=== PATIENT | male | born 1945 | race Caucasian/White ===

== ENCOUNTER 2017-09-03 22:47 | Inpatient (IN) | payer OTHER, MEDICARE ==
--- NOTE | 2017-09-03 22:57 | PDOC ---
Attending Attestation - Physicial Exam PE: GENERAL: (+)Decreased mental status. Awake and alert. HEAD: No signs of trauma EYES: PERRLA, EOMI, sclera anicteric, conjunctiva clear ENT: (+)Dry blood in mouth. (+)Dry blood on left cartilage piercing. (+) Extremely dry mouth. Auricles normal inspection, hearing grossly normal, nares patent, oropharynx clear without exudates. NECK: Normal ROM, supple, no lymphadenopathy, JVD, or masses LUNGS: Breath sounds equal, clear to auscultation bilaterally. No wheezes, and no crackles HEART: Regular rate and rhythm, normal S1 and S2, no murmurs, rubs or gallops ABDOMEN: Soft, nontender, normoactive bowel sounds. No guarding, no rebound. No masses EXTREMITIES: Normal range of motion, no edema. No clubbing or cyanosis. No cords, erythema, or tenderness NEUROLOGICAL: (+)3+ hyperreflexive arm and legs. Cranial nerves II through XII grossly intact. No clonus. SKIN: Warm, Dry, normal turgor, no rashes or lesions noted. <Noah Gerber - Last Filed: 09/03/17 23:38> - Resident Resident Name: Lynette Moss - ED Attending Attestation I have performed the following: I have examined & evaluated the patient, The case was reviewed & discussed with the resident, I agree w/resident's findings & plan - HPI HPI: 09/03/17 23:09 Pt comes via EMS; found by neighbors down in his home. Pt is r/o stroke; r/o seizure. He has no last known well time. He is and lives alone. He urinated on self and he is extremely dry; tongue dry and mouth has dried blood in it. Pt was not responsive to EMS; someone said they smelled ETOH on pt. I do not smell ETOH. Pt had a rightward gaze on exam by EMS, pt was stiff as per EMS. P In the ER pt is able to look to the left however, he is incinsistently following commands. - Physicial Exam PE: 09/03/17 23:33 Agree with resident exam. - Medical Decision Making 09/03/17 23:34 CT scan came back normal. I spoke to imaging business management consultant. 09/03/17 23:55 Patient Name: SHADY COMBS THIS IS A PRELIMINARY REPORT FROM IMAGING EMBEDDED ENGINEER EXAM: CT head without contrast IMAGES: 152 DATE OF EXAM: 2017-09-03 22:51:14 REASON FOR EXAM: Rule out CVA/TIA COMPARISON: None. FINDINGS: There is cerebral atrophy. Very mild chronic microvascular ischemic changes are suggested. No acute intracranial hemorrhage or acute infarction. The visualized aspect of the paranasal sinuses and mastoid air cells are unremarkable. No acute fracture. Mild left posterior parietal scalp edema. 09/04/17 02:30 Pt's CXR is normal; no sign of pneumonia or effusion We are still awaiting UA results. Pt has been pancultured and we began IV levaquin. Pt received 2L NSS for dehydration and rhabdomyolysis. 09/04/17 05:55 Pt is A+Ox1 only to person. Pt believes Ceferino is he pres of US and that he is still to his . He cannot tell us the year and he cannot tell us where we are. Pt remains with dry mouth. His BP is elevated. Normally no treatment for elevated BP. Pt will be given a dose of Flomax. <Yesenia Fairbanks - Last Filed: 09/04/17 05:56> Attestations - Attestations Documentation prepared by Noah Gerber, acting as medical assistant prn for Yesenia Fairbanks MD. <Noah Gerber - Last Filed: 09/03/17 23:38>
--- NOTE | 2017-09-03 22:58 | PDOC ---
History of Present Illness <Yesenia Fairbanks - Last Filed: 09/04/17 02:29> - History of Present Illness Initial Comments: 09/03/17 22:56 72 year old male PMH of Prostate CA (Day 7 of radiation) depression, alcohol abuse, seizure disorder (on Lamictal) BIBEMS after being found down @ home. Patient last known normal was yesterday at noon when he spoke to his . As per patient's , patient's last seizure was in 05/2017 likely 2/2 to medication non-adherence at which time he was hospitalized at [facility] in [place]. At presentation patient is alert, intermittently follows commands and has dried blood in his mouth, and around his ears. VS unremarkable. Patient's : Song Meeks <Lynette Moss - Last Filed: 09/04/17 03:23> - General Stated Complaint: STROKE/CVA Past History <Yesenia Fairbanks - Last Filed: 09/04/17 02:29> - Past Medical History Anemia: No Asthma: No Cancer: No Cardiac Disorders: No CVA: No COPD: No CHF: No Dementia: Yes (STATES "SOME" MEMORY LOSS, SOME SHORT TERM MEMORY LOSS. PRESENTLY IN A) Diabetes: No (STUDY REGARDING MEMORY ISSUES @ [facility]) GI Disorders: Yes (GERD) Disorders: No HTN: Yes Hypercholesterolemia: No Liver Disease: No Psychiatric Problems: Yes (DEPRESSION) Seizures: Yes (SEIZURE DISORDER-ON LAMICTAL NOW-LAST SEIZURE 04/2014) Thyroid Disease: No - Surgical History Abdominal Surgery: Yes (hernia sx at age 23) Appendectomy: No Cardiac Surgery: No Cholecystectomy: No Lung Surgery: No Neurologic Surgery: No Orthopedic Surgery: No - Suicide/Smoking/Psychosocial Hx Smoking History: Former smoker Have you smoked in the past 12 months: Yes Number of Cigarettes Smoked Daily: 15 If you are a former smoker, when did you quit?: SMOKES E-CIGARETTES 'Breaking Loose' booklet given: 04/30/14 Hx Alcohol Use: No (UNK) Drug/Substance Use Hx: No Substance Use Type: None Hx Substance Use Treatment: Yes (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 as per ) <Lynette Moss - Last Filed: 09/04/17 03:23> - Past Medical History Allergies/Adverse Reactions: Allergies Allergy/AdvReac Type Severity Reaction Status Date / Time Penicillins Allergy Intermediate Rash Verified 09/03/17 23:17 Home Medications: Ambulatory Orders Acyclovir [Zovirax -] 200 mg PO BID 04/29/14 Aspirin [ASA -] 81 mg PO DAILY 04/29/14 Buspirone HCl [Buspar -] 15 mg PO BID 04/29/14 Ranitidine HCl [Zantac] 150 mg PO BID 04/29/14 Sertraline HCl [Zoloft -] 50 mg PO DAILY 04/29/14 Lamotrigine [LaMICtal -] 150 mg PO BID 11/21/15 Methylphenidate HCl [Ritalin LA] 10 mg PO BID 11/21/15 Multivitamins [Tab-A-Vit -] 1 tab PO DAILY 11/21/15 Ramipril 10 mg PO DAILY 11/21/15 Review of Systems - Review of Systems Able to Perform ROS?: No <Lynette Moss - Last Filed: 09/04/17 03:23> *Physical Exam - Vital Signs Last Vital Signs Temp Pulse Resp BP Pulse Ox 98.8 F 78 22 152/77 96 09/03/17 22:47 09/03/17 22:50 09/03/17 22:50 09/03/17 22:47 09/03/17 22:50 <Yesenia Fairbanks - Last Filed: 09/04/17 02:29> - Physical Exam General Appearance: Yes: Nourished, Appropriately Dressed HEENT: positive: MARIO. negative: TM Bulging, TM Dull, TM Erythema Neck: positive: Trachea midline, Supple Respiratory/Chest: positive: Lungs Clear Cardiovascular: positive: S1, S2. negative: Edema, JVD Vascular Pulses: Dorsalis-Pedis (R): 2+, Doralis-Pedis (L): 2+ Gastrointestinal/Abdominal: positive: Normal Bowel Sounds, Soft Neurologic: positive: Alert, Respond to painful stimul, Other (intermittently responds to commands, withdraws from pain) <Lynette Moss - Last Filed: 09/04/17 03:23> ED Treatment Course - LABORATORY CBC & Chemistry Diagram: 09/03/17 23:00 09/03/17 23:00 - ADDITIONAL ORDERS Additional order review: Laboratory Results 04/09/03/17 09/03/17 01:15 23:00 23:00 PT with INR INR PTT (Actin FS) Sodium Potassium Chloride Carbon Dioxide Anion Gap BUN Creatinine Creat Clearance w eGFR Random Glucose Lactic Acid 2.4 H* Calcium Total Bilirubin AST ALT Alkaline Phosphatase Creatine Kinase Creatine Kinase Index CK-MB (CK-2) Troponin I Total Protein Albumin Triglycerides Cholesterol Total LDL Cholesterol HDL Cholesterol Alcohol, Quantitative < 5.0 Anti-A Titer Cancelled Blood Type Cancelled Antibody Screen Cancelled 09/03/17 09/03/17 23:00 23:00 PT with INR 11.70 INR 1.04 PTT (Actin FS) 28.9 Sodium 144 Potassium 4.3 Chloride 109 H Carbon Dioxide 25 Anion Gap 10 BUN 25 H Creatinine 1.7 H Creat Clearance w eGFR 39.60 Random Glucose 103 Lactic Acid Calcium 9.2 Total Bilirubin 0.7 D AST 101 H D ALT 33 D Alkaline Phosphatase 91 Creatine Kinase 4278 H Creatine Kinase Index 0.6 CK-MB (CK-2) 28.97 H Troponin I 0.05 D Total Protein 7.2 Albumin 3.8 Triglycerides 64 Cholesterol 194 Total LDL Cholesterol 107 H HDL Cholesterol 73 Alcohol, Quantitative Anti-A Titer Blood Type Antibody Screen 09/03/17 23:00 RBC 4.66 MCV 92.1 MCHC 33.9 RDW 15.2 MPV 8.3 Neutrophils % 91.1 H D Lymphocytes % 3.7 L D Monocytes % 5.1 Eosinophils % 0.0 D Basophils % 0.1 - Medications Given in the ED: ED Medications Discontinued Medications Generic Name Dose Route Start Last Admin Trade Name Freq PRN Reason Stop Dose Admin Sodium Chloride 1,000 ml 09/03/17 23:13 09/03/17 23:44 Normal Saline - IV 09/03/17 23:14 1,000 ml ONCE ONE Administration Sodium Chloride 1,000 ml 09/04/17 01:11 09/04/17 01:14 Normal Saline - IV 09/04/17 01:12 1,000 ml ONCE ONE Administration <Yesenia Fairbanks - Last Filed: 09/04/17 02:29> - LABORATORY CBC & Chemistry Diagram: 09/03/17 23:00 09/03/17 23:00 - RADIOLOGY Radiology Studies Ordered: Category Date Time Status HEAD CT (STROKE) [CT] Stat CT Scan 09/03/17 22:49 Ordered <Lynette Moss - Last Filed: 09/04/17 03:23> Medical Decision Making - Medical Decision Making 09/03/17 23:01 72 year old male presents as medical code. Code scott + ED CVA/TIA order set. Will also obtain CPK as patient has unknown h/o of being down, ethanol level and Lamotrigine level. 09/03/17 23:[address] negative for acute bleed as well as brain mets. 09/04/17 00:02 Leukocytosis 22 -- likely reactive, will obtain Blood Cultures, CXR to investigate source of infection. UA pending. 09/04/17 00:37 Patient A&O x3, responsive. CPK 4278 --> will give additional 1 L IV NS. 09/04/17 00:58 Case d/w Dr. Sweet. Patient admitted to OB Tele. Will continue to monitor while in ED. 09/04/17 03:22 Lactic Acid 2.4 - likely 2/2 to seizure. Patient recieving IV NS. <Lynette Moss - Last Filed: 09/04/17 03:23> *DC/Admit/Observation/Transfer <Yesenia Fairbanks - Last Filed: 09/04/17 02:29> - Discharge Dispostion Admit: Yes <Lynette Moss - Last Filed: 09/04/17 03:23> Diagnosis at time of Disposition: Leukocytosis, Post-ictal state, Rhabdomyolysis, Cerebrovascular accident (CVA) , Epilepsy - Discharge Dispostion Condition at time of disposition: Fair
[2017-09-03] MEDS ORDERED: SODIUM CHLORIDE 1,000 ML IV SCH (23:00)
[2017-09-03] MEDS ORDERED: SODIUM CHLORIDE 0.9% 500 ML INFUS.BAG IV ONE (23:13)
[2017-09-03 23:17] VITALS: BMI 23.7
[2017-09-03 23:41] LABS: BASO % 0.1 % (0-2.0); HEMATOCRIT 42.9 % (35.4-49); HEMOGLOBIN 14.5 GM/dL (11.7-16.9); LYMPH % 3.7 % (8-40); MCH 31.2 pg (25.7-33.7); MCHC 33.9 g/dl (32.0-35.9); MEAN CELL VOLUME 92.1 fl (80-96); MEAN PLT VOLUME 8.3 fl (7.5-11.1); MONO % 5.1 % (3.8-10.2); NEUT % 91.1 % (42.8-82.8); PLATELET COUNT 269 K/MM3 (134-434); RBC 4.66 M/mm3 (4.00-5.60); RDW 15.2 % (11.9-15.9)
[2017-09-04 00:06] LABS: ALBUMIN 3.8 g/dl (3.4-5.0); ANION GAP 10 (8-16); BILIRUBIN,TOTAL 0.7 mg/dL (0.2-1.0); BLOOD UREA NITROGEN 25 mg/dL (7-18); CALCIUM 9.2 mg/dL (8.5-10.1); CHLORIDE 109 mmol/L (98-107); CHOLESTEROL 194 mg/dL (50-200); CO2 25 mmol/L (21-32); CREATININE 1.7 mg/dL (0.7-1.3); GLUCOSE,RANDOM 103 mg/dL (74-106); POTASSIUM 4.3 mmol/L (3.5-5.1); SGOT/AST 101 U/L (15-37); SGPT/ALT 33 U/L (12-78); SODIUM 144 mmol/L (136-145); TOT PROT 7.2 g/dl (6.4-8.2); TRIGLYCERIDES 64 mg/dL (35-160)
[2017-09-04 00:18] LABS: ALK PHOS 91 U/L (45-117)
[2017-09-04 00:23] LABS: INR 1.04 (0.82-1.09); PROTHROMBIN TIME (PATIENT) 11.7 SEC (9.98-11.88)
[2017-09-04 00:26] LABS: ACTIVATED PTT 28.9 SECONDS (26.9-34.4)
[2017-09-04 00:31] LABS: PLATELET ESTIMATE ADEQUATE
[2017-09-04 00:48] LABS: HDL CHOLESTEROL 73 mg/dl (29-89)
[2017-09-04] MEDS ORDERED: SODIUM CHLORIDE 0.9% 500 ML INFUS.BAG IV ONE (01:11)
[2017-09-04] MEDS ORDERED: VANCOMYCIN 1 GRAM (PRE-DOCKED) 1,000 MG/250 ML BAG IVPB ONE (01:15)
[2017-09-04] MEDS ORDERED: levETIRAcetam 500 MG/5 ML INJECTION VIAL IVPB STA ×2 (02:51)
--- NOTE | 2017-09-04 03:36 | HP ---
CHIEF COMPLAINT: bibems PCP: Dr. Nahum Tyler, Jess [phone] Neuro: DR. Russo [phone] HISTORY OF PRESENT ILLNESS: PATIENT IS CALM BUT NOT COOPERATIVE TO HISTORY TAKING. HISTORY OBTAINED FROM ED PHYSICIANS AND CHART. 72 yr old man with hx of seizure(gran mal) HTN, CAD, ADD with hyperactivity and depression was bibems by neighbhors. His called him this morning but he did not pharmacy picking tech and she tried again in the evening, when he did not answer she called the neighbhors who found him down and immobile in his home. Last known normal was yesterday evening. As per ED note he has prostate ca (day 7 of radiation). His does not live with him but [place] reach the hospital. upon arrival to ED, as per ED resident pt was incontinent of urine on his clothes. ER course was notable for: - head CT - elevated lactic acid PAST MEDICAL HISTORY: hx of seizure(gran mal, (dr. cooley note 04/29/2014:Initially presented in 2010 - thought to be due to Bupropion-discontinued)) HTN, CAD, ADD with hyperactivity , herpes and depression PAST SURGICAL HISTORY: none Social History: Smoking: former Alcohol: no Drugs: no Family History: [place] Allergies Penicillins Allergy (Intermediate, Verified 09/03/17 23:17) Rash HOME MEDICATIONS: called [facility]: Ritalin 40mg ER qdaily - has been on this dose for last year, rx by Dr. Russo buspirone 15mg BID sertraline 50mg 1.5 tablets daily rx by dr. jones: zovirax 200mg 2caps daily(has been taking this daily for year) ramipril 10mg q daily REVIEW OF SYSTEMS unable to complete due patient's AMS PHYSICAL EXAMINATION Vital Signs - 24 hr 09/03/17 09/03/17 22:47 22:50 Temperature 98.8 F Pulse Rate 78 78 Respiratory 22 22 Rate Blood Pressure 152/77 O2 Sat by Pulse 96 96 Oximetry (%) GENERAL: Awake, alert, NAD, at times tried to climb out bed, but not combative. HEAD: Normal with no signs of trauma. EYES: Pupils small, minimally responsive to light, equal, extraocular movements intact, sclera anicteric, conjunctiva clear. No lid lag. EARS, NOSE, THROAT: Ears normal (b/l cerumen) left ear with earring with dried blood, nares patent, oropharynx erythematous with thick dark colored mucus, very mucous membranes. tongue appears swollen. no erum lacerations/bleeding visualized, no loose teeth noted, lips also with dried dark colored mucus adherent. NECK:in c-collar, without lymphadenopathy, JVD LUNGS: Breath sounds equal, clear to auscultation bilaterally. No wheezes, and no crackles. No accessory muscle use. HEART: Regular rate and rhythm, normal S1 and S2 with faint systolic ej murmur in 2nd intercostal space, ABDOMEN: Soft, nontender, not distended, normoactive bowel sounds, no guarding, no rebound, no masses. No hepatomegaly or splenomegaly. MUSCULOSKELETAL: Normal range of motion at all joints on passive motion. No bony deformities or tenderness, no ecchymosis noted. UPPER EXTREMITIES: 2+ radial pulses, warm, well-perfused. No cyanosis. No clubbing. No peripheral edema. LOWER EXTREMITIES: 2+ dp pulses, warm, well-perfused. No calf tenderness. No peripheral edema. NEUROLOGICAL: Normal speech. facial symmetry, uvula midline, tongue sticking out midline, freely moves upper and lower extremities. intermittently will answer to his name and one question or a command. was oriented to his full name. lifted legs from hip one at a time when prompted with repeated tactile stimulation. opens mouth to verbal command, closes eyes to verbal command. PSYCHIATRIC: Cooperative. Good eye contact and repeated verbal and tactile stimuli to track. Laboratory Results - last 24 hr 09/03/17 09/03/17 09/03/17 23:00 23:00 23:00 WBC 22.0 H D RBC 4.66 Hgb 14.5 Hct 42.9 MCV 92.1 MCH 31.2 MCHC 33.9 RDW 15.2 Plt Count 269 MPV 8.3 Neutrophils % 91.1 H D Lymphocytes % 3.7 L D Monocytes % 5.1 Eosinophils % 0.0 D Basophils % 0.1 Platelet Estimate Adequate Platelet Comment No clotting detected PT with INR 11.70 INR 1.04 PTT (Actin FS) 28.9 Sodium 144 Potassium 4.3 Chloride 109 H Carbon Dioxide 25 Anion Gap 10 BUN 25 H Creatinine 1.7 H Creat Clearance w eGFR 39.60 Random Glucose 103 Lactic Acid Calcium 9.2 Total Bilirubin 0.7 D AST 101 H D ALT 33 D Alkaline Phosphatase 91 Creatine Kinase 4278 H Creatine Kinase Index 0.6 CK-MB (CK-2) 28.97 H Troponin I 0.05 D Total Protein 7.2 Albumin 3.8 Triglycerides 64 Cholesterol 194 Total LDL Cholesterol 107 H HDL Cholesterol 73 Alcohol, Quantitative Anti-A Titer Blood Type Antibody Screen 09/03/17 09/03/17 09/04/17 23:00 23:00 01:15 WBC RBC Hgb Hct MCV MCH MCHC RDW Plt Count MPV Neutrophils % Lymphocytes % Monocytes % Eosinophils % Basophils % Platelet Estimate Platelet Comment PT with INR INR PTT (Actin FS) Sodium Potassium Chloride Carbon Dioxide Anion Gap BUN Creatinine Creat Clearance w eGFR Random Glucose Lactic Acid 2.4 H* Calcium Total Bilirubin AST ALT Alkaline Phosphatase Creatine Kinase Creatine Kinase Index CK-MB (CK-2) Troponin I Total Protein Albumin Triglycerides Cholesterol Total LDL Cholesterol HDL Cholesterol Alcohol, Quantitative < 5.0 Anti-A Titer Cancelled Blood Type Cancelled Antibody Screen Cancelled ASSESSMENT/PLAN: 72yo man with hx of seizures disorder bibems after being found in his home placed in observation in [facility]. #AMS likely due to post-ictal stage of seizure, low suspicion for CVA as no focal neurological deficits though unable to complete full neuro exam, head CT is negative, will approach as seizure -loading dose of keppra - 750mg IVPB (adjusted for renal function) -neurochecks q4hrs -elevate head of bed 30 degrees -neurology evaluation Dr. carlson consulted -urine toxicology to r/o illicit substances -CXR to check for evidence of aspiration due to patient's foul smelling mucus that he keeps coughing up -continous bedrest with seizure and fall precautions in place, 1:1 monitoring for now - NPO as doubtful if patient can protect airway at current mentation, hold po meds #OBDULIA - may be prerenal or ATN secondary to rhabdomyolysis from gran mal seizure or being immobile for prolonged time -ua/, urine studies, renal U/S -avoid nephrotoxic meds -check urine myoglobulin for signs of rhabdo (ck is elevated) -IV fluid hydration NS @125cc/hr #Leukocytosis- likely reactive to seizure d/o, no infection suspected at the current moment, patient afebrile, no rashes, no GI//pulm source at this time -trend CBC - monitor off abx #lactic acidosis - trend, IVF, likely reactive to seizure #DVT ppx- heparin sc #GI proph - given dose of protonix as foul smelling mucus in mouth most likely regurgitated blood swallowed from tongue bitting, tongue is swollen and with dry mucus membranes with adherent dark colored discharge difficult to assess any lacerations, no erum bleeded noted. Visit type - Emergency Visit Emergency Visit: Yes ED Registration Date: 09/04/17 Care time: The patient presented to the Emergency Department on the above date and was hospitalized for further evaluation of their emergent condition. - New Patient This patient is new to me today: Yes Date on this admission: 09/04/17 - Critical Care Critical Care patient: No Hospitalist Screening - Colonoscopy Questionnaire Colonoscopy Questionnaire: Colonoscopy Questionnaire - Patient: 50 - 75 years old and never had a screening colonoscopy: Unknown History of colon or rectal polyps, or CA: Unknown History of IBD, Crohn's disease or UC: Unknown History of abdominal radiation therapy as a child: Unknown - Relative: 1 with colon or rectal CA, or polyps at age 60 or younger: Unknown Colon or rectal CA diagnosed at age 45 or younger: Unknown Multiple relatives with colon or rectal CA: Unknown - Outcome: Screening Result: Negative Screen
[2017-09-04] MEDS ORDERED: levETIRAcetam 500 MG/5 ML INJECTION VIAL IVPB ONE (04:26)
--- NOTE | 2017-09-04 04:31 | PN ---
Teaching Attending Note Name of Resident: Miguel Funk ATTENDING PHYSICIAN STATEMENT I saw and evaluated the patient. Chart, data reviewed. I reviewed the resident's note and discussed the case with the resident. I agree with the resident's findings and plan as documented. SUBJECTIVE: 72 year old male PMH of Prostate CA (undergoing radiation therapy) depression, alcohol abuse, seizure disorder (on Lamictal) BIBEMS after being found down at home laying in urine for unknown period of time by neighbors. EMS was summoned and he was brought in to hospital. Patient found to have swollen tongue and dried blood on lips. As per patient's , patient's last seizure was in 2017 likely 2/2 to medication non-adherence at which time he was hospitalized at [facility] in [place]. Head CT performed to r/o cva and was neg for acute insults. OBJECTIVE: Last Vital Signs Temp Pulse Resp BP Pulse Ox 98.8 F 78 22 152/77 96 09/03/17 22:47 09/03/17 22:50 09/03/17 22:50 09/03/17 22:47 09/03/17 22:50 general- drowsy, nontoxic appearing, no overt evidence of trauma to body heent- dried blood on lips, swollen tongue, perrla, no scleral pallor neck -in c collar cv-s1+s2+ rrr chest- cta b/l abdomen -soft, nt, no masses appreciated ext- no pedal edema skin- no rashes appeciated Neuro- unable to perform accurate neuro exam as patient is noncompliant for exam Abnormal Lab Results 09/03/17 09/03/17 09/04/17 23:00 23:00 01:15 WBC 22.0 H D Neutrophils % 91.1 H D Lymphocytes % 3.7 L D Chloride 109 H BUN 25 H Creatinine 1.7 H Lactic Acid 2.4 H* AST 101 H D Creatine Kinase 4278 H CK-MB (CK-2) 28.97 H Total LDL Cholesterol [address] - no intracranial bleed or infarct, cerebral atrophy found ASSESSMENT AND PLAN: #72yo man with seziure d/o believed to be noncompliant with meds with #Breakthrough seizure- likely 2/2 to medication noncompliance, currently in postictal state, less likely CVA, unable to accurately perform neuro exam as pt is noncompliant -obs/tele -loading dose of keppra - 1g IVPB -neurochecks q4hrs -elevate head of bed 30 degrees -neurology evaluation -urine toxicology -CXR to check for evidence of aspiration -bed rest -fall precautions -one to one if patient tries to leave bed #OBDULIA - may be prerenal or ATN secondary to rhabdomyolysis -urine lyes, cr -UA -renal U/S -I/O, daily weights -avoid nephrotoxic meds #Rhabdomyolysis -likely 2/2 to prolonged time laying on ground -check urine myoglobulin -IV fluid hydration #Leukocytosis- likely reactive 2/2 to seizure d/o, no infection suspected at the current moment -trend CBC -no antbiotics at this time #DVT ppx- heparin sc
[2017-09-04] MEDS: SODIUM CHLORIDE 1,000 ML IV SCH ×2 (04:37→21:23)
[2017-09-04] MEDS ORDERED: PANTOPRAZOLE SODIUM 40 MG VIAL IVPUSH ONE (05:05)
[2017-09-04] MEDS ORDERED: PANTOPRAZOLE SODIUM 40 MG/100 ML BAG IVPB ONE (05:38)
[2017-09-04] MEDS ORDERED: TAMSULOSIN HCL 0.4 MG CAP.ER.24H (FP) PO ONE (05:48)
[2017-09-04] MEDS ORDERED: TAMSULOSIN HCL 0.4 MG CAP.ER.24H (FP) ONE (05:58)
[2017-09-04 06:01] LABS: URINE APPEARANCE CLEAR; URINE BILIRUBIN NEGATIVE (<2.0 mg/dL); URINE COLOR LTYELLOW; URINE GLUCOSE (UA) NEGATIVE (NEGATIVE); URINE KETONE TRACE (NEGATIVE); URINE LEUK ESTERASE NEGATIVE (NEGATIVE); URINE NITRITE NEGATIVE (NEGATIVE); URINE PROTEIN NEGATIVE (NEGATIVE); URINE UROBILINOGEN NEGATIVE mg/dL (0.2-1.0)
[2017-09-04 06:01] LABS: BASO % 0.4 % (0-2.0); HEMATOCRIT 39.5 % (35.4-49); HEMOGLOBIN 13.3 GM/dL (11.7-16.9); LYMPH % 4.8 % (8-40); MCH 31.3 pg (25.7-33.7); MCHC 33.7 g/dl (32.0-35.9); MEAN CELL VOLUME 92.9 fl (80-96); MONO % 5.4 % (3.8-10.2); NEUT % 89.4 % (42.8-82.8); PLATELET COUNT 252 K/MM3 (134-434); RBC 4.25 M/mm3 (4.00-5.60); RDW 14.7 % (11.9-15.9); WHITE BLOOD COUNT 16.5 K/mm3 (4.0-10.0)
[2017-09-04 06:11] LABS: URINE BACTERIA RARE /hpf (NONE SEEN); URINE MUCUS RARE
[2017-09-04 06:21] LABS: ANION GAP 9 (8-16); BLOOD UREA NITROGEN 23 mg/dL (7-18); CHLORIDE 116 mmol/L (98-107); CO2 22 mmol/L (21-32); CREATININE 1.5 mg/dL (0.7-1.3); GLUCOSE,RANDOM 94 mg/dL (74-106); MAGNESIUM 2.2 mg/dL (1.8-2.4); PHOSPHOROUS 2.1 mg/dL (2.5-4.9); POTASSIUM 3.8 mmol/L (3.5-5.1); SODIUM 147 mmol/L (136-145)
[2017-09-04] MEDS: HEPARIN NA (PORCINE) 5,000 UNITS/ML 1ML VIAL SQ SCH ×3 (06:31→21:24)
--- NOTE | 2017-09-04 08:36 | EKG ---
Test Reason : Blood Pressure : / mmHG Vent. Rate : 085 BPM Atrial Rate : 085 BPM P-R Int : 160 ms QRS Dur : 098 ms QT Int : 368 ms P-R-T Axes : 066 056 072 degrees QTc Int : 437 ms SINUS RHYTHM WITH PREMATURE ATRIAL COMPLEXES OTHERWISE NORMAL ECG WHEN COMPARED WITH ECG OF 29-APR-2014 13:37, PREMATURE ATRIAL COMPLEXES ARE NOW PRESENT QUESTIONABLE CHANGE IN QRS AXIS Confirmed by JUANA PAULINO, LAWSON ([id number]) on 09/04/2017 8:36:26 AM Referred By: Confirmed By:LAWSON ARIAS MD
--- NOTE | 2017-09-04 09:36 | CON.NEURO ---
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 Last known normal was yesterday evening. upon arrival to ED, as per ED resident pt was incontinent of urine on his clothes. Hx on being on lamitcal--does not know dose and HX of noncompliance ; recent admission to [facility] for breakthrough Sz as well. limited HX , states lives with --though she does not live him; does not recall year or president--confused. 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: Yes: Alzheimer's, Seizure (Initially presented in 2010- thought to be due to Bupropion-discontinued) Cardio/Vascular: Yes: CAD Psych: Yes: Anxiety, Depression Musculoskeletal: Yes: Osteoarthritis - Past Surgical History Past Surgical History: Yes: None - Alcohol/Substance Use Hx Alcohol Use: No (UNK) - Smoking History Smoking history: Former smoker Have you smoked in the past 12 months: Yes Aproximately how many cigarettes per day: 15 If you are a former smoker, when did you quit?: SMOKES E-CIGARETTES - Social History ADL: Independent Occupation: retired History of Recent Travel: No Home Medications - Allergies Allergies/Adverse Reactions: Allergies Allergy/AdvReac Type Severity Reaction Status Date / Time Penicillins Allergy Intermediate Rash Verified 09/03/17 23:17 - Home Medications Home Medications: Ambulatory Orders Acyclovir [Zovirax -] 200 mg PO BID 04/29/14 Aspirin [ASA -] 81 mg PO DAILY 04/29/14 Buspirone HCl [Buspar -] 15 mg PO BID 04/29/14 Ranitidine HCl [Zantac] 150 mg PO BID 04/29/14 Sertraline HCl [Zoloft -] 75 mg PO DAILY 04/29/14 Lamotrigine [LaMICtal -] 150 mg PO BID 11/21/15 Multivitamins [Tab-A-Vit -] 1 tab PO DAILY 11/21/15 Ramipril 10 mg PO DAILY 11/21/15 Methylphenidate HCl [Ritalin LA] 40 mg PO DAILY 09/04/17 Physical Exam-Neuro Vital Signs: Vital Signs Temperature 98.0 F 09/04/17 08:00 Pulse Rate 84 09/04/17 08:00 Respiratory Rate 16 09/04/17 08:00 Blood Pressure 140/73 09/04/17 08:00 O2 Sat by Pulse Oximetry (%) 98 09/04/17 06:49 Labs: CBC, BMP 09/04/17 05:54 09/04/17 05:54 INR, PTT INR 1.04 (0.82-1.09) 09/03/17 23:00 - Neuro Exam Level Of Consciousness: Yes: Alert (awake, but confused, not oriented to place, yr, follows simple commands, no focal weakness, no sesnory level ) Imaging - Results Cat Scan: Image Reviewed Problem List - Problems (1) Epilepsy Code(s): G40.909 - EPILEPSY, UNSP, NOT INTRACTABLE, WITHOUT STATUS EPILEPTICUS (2) Leukocytosis Code(s): D72.829 - ELEVATED WHITE BLOOD CELL COUNT, UNSPECIFIED (3) Post-ictal state Code(s): R56.9 - UNSPECIFIED CONVULSIONS Assessment/Plan 72 yr old man with hx 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 Last known normal was yesterday evening. upon arrival to ED, as per ED resident pt was incontinent of urine on his clothes. Hx on being on lamitcal--does not know dose and HX of noncompliance ; recent admission to [facility] for breakthrough Sz as well. limited HX , states lives with --though she does not live him; does not recall year or president--confused. HD CT prelim (-) ? positical vs dementia vs other check MRI BRAIN empirically start KEPPRA 500BID will get more HX from Dr Godinez
--- NOTE | 2017-09-04 10:47 | PN ---
Progress Note (short form) - Note Progress Note: Subjective: no fever ro chills, no weakness, does not remembers what happened and he does not remember having any aura before a seizure. he denies any cough or dysuria Objective: Vital Signs: Last Vital Signs Temp Pulse Resp BP Pulse Ox 98.0 F 84 16 140/73 98 09/04/17 08:00 09/04/17 08:00 09/04/17 08:00 09/04/17 08:00 09/04/17 06:49 Laboratory Results - last 24 hr 09/03/17 09/03/17 09/03/17 23:00 23:00 23:00 WBC 22.0 H D RBC 4.66 Hgb 14.5 Hct 42.9 MCV 92.1 MCH 31.2 MCHC 33.9 RDW 15.2 Plt Count 269 MPV 8.3 Neutrophils % 91.1 H D Lymphocytes % 3.7 L D Monocytes % 5.1 Eosinophils % 0.0 D Basophils % 0.1 Platelet Estimate Adequate Platelet Comment No clotting detected PT with INR 11.70 INR 1.04 PTT (Actin FS) 28.9 Sodium 144 Potassium 4.3 Chloride 109 H Carbon Dioxide 25 Anion Gap 10 BUN 25 H Creatinine 1.7 H Creat Clearance w eGFR 39.60 Random Glucose 103 Serum Osmolality Lactic Acid Calcium 9.2 Phosphorus Magnesium Total Bilirubin 0.7 D AST 101 H D ALT 33 D Alkaline Phosphatase 91 Creatine Kinase 4278 H Creatine Kinase Index 0.6 CK-MB (CK-2) 28.97 H Troponin I 0.05 D Total Protein 7.2 Albumin 3.8 Triglycerides 64 Cholesterol 194 Total LDL Cholesterol 107 H HDL Cholesterol 73 TSH Urine Color Urine Appearance Urine pH Ur Specific [place] Urine Protein Urine Glucose (UA) Urine Ketones Urine Blood Urine Nitrite Urine Bilirubin Urine Urobilinogen Ur Leukocyte Esterase Urine WBC (Auto) Urine RBC (Auto) Urine Bacteria Urine Mucus Urine Osmolality Alcohol, Quantitative Anti-A Titer Blood Type Antibody Screen 09/03/17 09/03/17 09/04/17 23:00 23:00 01:15 WBC RBC Hgb Hct MCV MCH MCHC RDW Plt Count MPV Neutrophils % Lymphocytes % Monocytes % Eosinophils % Basophils % Platelet Estimate Platelet Comment PT with INR INR PTT (Actin FS) Sodium Potassium Chloride Carbon Dioxide Anion Gap BUN Creatinine Creat Clearance w eGFR Random Glucose Serum Osmolality Lactic Acid 2.4 H* Calcium Phosphorus Magnesium Total Bilirubin AST ALT Alkaline Phosphatase Creatine Kinase Creatine Kinase Index CK-MB (CK-2) Troponin I Total Protein Albumin Triglycerides Cholesterol Total LDL Cholesterol HDL Cholesterol TSH Urine Color Urine Appearance Urine pH Ur Specific [place] Urine Protein Urine Glucose (UA) Urine Ketones Urine Blood Urine Nitrite Urine Bilirubin Urine Urobilinogen Ur Leukocyte Esterase Urine WBC (Auto) Urine RBC (Auto) Urine Bacteria Urine Mucus Urine Osmolality Alcohol, Quantitative < 5.0 Anti-A Titer Cancelled Blood Type Cancelled Antibody Screen Cancelled 09/04/17 09/04/17 09/04/17 04:40 05:00 05:27 WBC RBC Hgb Hct MCV MCH MCHC RDW Plt Count MPV Neutrophils % Lymphocytes % Monocytes % Eosinophils % Basophils % Platelet Estimate Platelet Comment PT with INR INR PTT (Actin FS) Sodium Potassium Chloride Carbon Dioxide Anion Gap BUN Creatinine Creat Clearance w eGFR Random Glucose Serum Osmolality Lactic Acid 1.2 Calcium Phosphorus Magnesium Total Bilirubin AST ALT Alkaline Phosphatase Creatine Kinase Creatine Kinase Index CK-MB (CK-2) Troponin I Total Protein Albumin Triglycerides Cholesterol Total LDL Cholesterol HDL Cholesterol TSH Urine Color Ltyellow Urine Appearance Clear Urine pH 5.0 Ur Specific [place] 1.010 Urine Protein Negative Urine Glucose (UA) Negative Urine Ketones Trace H Urine Blood 3+ H Urine Nitrite Negative Urine Bilirubin Negative Urine Urobilinogen Negative Ur Leukocyte Esterase Negative Urine WBC (Auto) 1 Urine RBC (Auto) 3 Urine Bacteria Rare Urine Mucus Rare Urine Osmolality 449 Alcohol, Quantitative Anti-A Titer Blood Type Antibody Screen 09/04/17 09/04/17 09/04/17 05:27 05:27 05:54 WBC 16.5 H RBC 4.25 Hgb 13.3 Hct 39.5 MCV 92.9 MCH 31.3 MCHC 33.7 RDW 14.7 Plt Count 252 MPV 8.0 Neutrophils % 89.4 H Lymphocytes % 4.8 L D Monocytes % 5.4 Eosinophils % 0.0 Basophils % 0.4 D Platelet Estimate Platelet Comment PT with INR INR PTT (Actin FS) Sodium Potassium Chloride Carbon Dioxide Anion Gap BUN Creatinine Creat Clearance w eGFR Random Glucose Serum Osmolality 303 Lactic Acid Calcium Phosphorus Magnesium Total Bilirubin AST ALT Alkaline Phosphatase Creatine Kinase Creatine Kinase Index CK-MB (CK-2) Troponin I Total Protein Albumin Triglycerides Cholesterol Total LDL Cholesterol HDL Cholesterol TSH Urine Color Urine Appearance Urine pH Ur Specific [place] Urine Protein Urine Glucose (UA) Urine Ketones Urine Blood Urine Nitrite Urine Bilirubin Urine Urobilinogen Ur Leukocyte Esterase Urine WBC (Auto) Urine RBC (Auto) Urine Bacteria Urine Mucus Urine Osmolality Cancelled Alcohol, Quantitative Anti-A Titer Blood Type Antibody Screen 09/04/17 09/04/17 05:54 05:54 WBC RBC Hgb Hct MCV MCH MCHC RDW Plt Count MPV Neutrophils % Lymphocytes % Monocytes % Eosinophils % Basophils % Platelet Estimate Platelet Comment PT with INR INR PTT (Actin FS) Sodium 147 H Potassium 3.8 Chloride 116 H Carbon Dioxide 22 Anion Gap 9 BUN 23 H Creatinine 1.5 H Creat Clearance w eGFR Random Glucose 94 Serum Osmolality Lactic Acid Calcium 8.0 L Phosphorus 2.1 L D Magnesium 2.2 Total Bilirubin AST ALT Alkaline Phosphatase Creatine Kinase Creatine Kinase Index CK-MB (CK-2) Troponin I Total Protein Albumin Triglycerides Cholesterol Total LDL Cholesterol HDL Cholesterol TSH 0.66 Urine Color Urine Appearance Urine pH Ur Specific [place] Urine Protein Urine Glucose (UA) Urine Ketones Urine Blood Urine Nitrite Urine Bilirubin Urine Urobilinogen Ur Leukocyte Esterase Urine WBC (Auto) Urine RBC (Auto) Urine Bacteria Urine Mucus Urine Osmolality Alcohol, Quantitative Anti-A Titer Blood Type Antibody Screen Physical Exam: NAD , Awake , cooperative , slow to respond. HEENT: dry MM, bruise on L sided tongue . no JVD CV: RRR, no MRG ' Lungs : CATB ext: no edema or erythema Abd:s fot, NT, ND , NL BS Neuro : EOMI, no facial droop, tongue at mid line , strength 5/5 in upper and lower ext proximally and distally. sensatio to light touch nl. reflexes 2+ knee jerk and biceps b/l Imaging: cxray and head CT reviewed. Assessment/Plan: 72 y/o man with h/o seizures , non compliance , ADHD, cAD , HTN who presented after being found down 1- possible seizure and posictal state : CT with o etiology, likely due to non compliance - MRI pendig - cont Keppra . - confirmed with his pharmacy lamictal 200 mg BID - seizure precautions - appreciate neuro help 2- OBDULIA: likely due to Rhabdo with possible volume depletion . Cr improved with IVF - resume IVF - monitor cr . - hold ramipril - if no improvement , will get US 3- Rhabdomyolysis : - cont IVF 4- Leukocytosis : no signs of infection . Nl cxray, clean UA , nl abd exam, no diarrhea . no neuro sx monitor 5- h/o CAD, HTN : cont ASA . hold ramipril due to OBDULIA meds were confirmed with his pharmacy and reconciled Visit type - Emergency Visit Emergency Visit: Yes ED Registration Date: 09/04/17 Care time: The patient presented to the Emergency Department on the above date and was hospitalized for further evaluation of their emergent condition. - New Patient This patient is new to me today: Yes Date on this admission: 09/04/17 - Critical Care Critical Care patient: No
[2017-09-04] MEDS: levETIRAcetam 500 MG TABLET (FP) PO SCH ×2 (11:02→21:24)
[2017-09-04] MEDS: amLODIPine BESYLATE 5 MG TABLET (FP) PO SCH (12:02)
[2017-09-05] MEDS ORDERED: ACETAMINOPHEN 325 MG TABLET (FP) PO ONE (01:23)
[2017-09-05] MEDS: SODIUM CHLORIDE 1,000 ML IV SCH (05:30)
[2017-09-05] MEDS: HEPARIN NA (PORCINE) 5,000 UNITS/ML 1ML VIAL SQ SCH ×3 (06:56→22:19)
[2017-09-05 07:41] LABS: BASO % 0.4 % (0-2.0); EOS % 0.4 % (0-4.5); HEMATOCRIT 35.1 % (35.4-49); LYMPH % 9.9 % (8-40); MCH 31.9 pg (25.7-33.7); MCHC 34.3 g/dl (32.0-35.9); MEAN PLT VOLUME 8.6 fl (7.5-11.1); MONO % 5.3 % (3.8-10.2); PLATELET COUNT 200 K/MM3 (134-434); RBC 3.78 M/mm3 (4.00-5.60); RDW 14.7 % (11.9-15.9); WHITE BLOOD COUNT 9.7 K/mm3 (4.0-10.0)
[2017-09-05 08:01] LABS: CHLORIDE 112 mmol/L (98-107); POTASSIUM 3.6 mmol/L (3.5-5.1); SODIUM 143 mmol/L (136-145)
[2017-09-05 08:06] LABS: ANION GAP 7 (8-16); BLOOD UREA NITROGEN 18 mg/dL (7-18); CALCIUM 8.2 mg/dL (8.5-10.1); CO2 24 mmol/L (21-32); CREATININE 1.1 mg/dL (0.7-1.3); GLUCOSE,RANDOM 101 mg/dL (74-106); MAGNESIUM 1.9 mg/dL (1.8-2.4); PHOSPHOROUS 2.1 mg/dL (2.5-4.9)
--- NOTE | 2017-09-05 09:12 | PN ---
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 His called him this morning but he did not pickle pumper and she tried again in the evening, when he did not answer she called the neighbhors who found him down and immobile in his home. Last known normal was yesterday evening. upon arrival to ED, as per ED resident pt was incontinent of urine on his clothes. Hx on being on lamitcal--does not know dose and HX of noncompliance ; recent admission to [facility] for breakthrough Sz as well. limited HX , states lives with --though she does not live him; does not recall year or president--confused. 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: Alzheimer's, Seizure (Initially presented in 2010- thought to be due to Bupropion-discontinued) Cardio/Vascular: Yes: CAD Psych: Yes: Anxiety, Depression Musculoskeletal: Yes: Osteoarthritis - Past Surgical History Past Surgical History: Yes: None - Alcohol/Substance Use Hx Alcohol Use: No (UNK) - Smoking History Smoking history: Former smoker Have you smoked in the past 12 months: Yes Aproximately how many cigarettes per day: 15 If you are a former smoker, when did you quit?: SMOKES E-CIGARETTES - Social History ADL: Independent Occupation: retired History of Recent Travel: No Home Medications - Allergies Allergies/Adverse Reactions: Allergies Allergy/AdvReac Type Severity Reaction Status Date / Time Penicillins Allergy Intermediate Rash Verified 09/03/17 23:17 - Home Medications Home Medications: Ambulatory Orders Acyclovir [Zovirax -] 200 mg PO BID 04/29/14 Aspirin [ASA -] 81 mg PO DAILY 04/29/14 Buspirone HCl [Buspar -] 15 mg PO BID 04/29/14 Ranitidine HCl [Zantac] 150 mg PO BID 04/29/14 Sertraline HCl [Zoloft -] 75 mg PO DAILY 04/29/14 Lamotrigine [LaMICtal -] 150 mg PO BID 11/21/15 Multivitamins [Tab-A-Vit -] 1 tab PO DAILY 11/21/15 Ramipril 10 mg PO DAILY 11/21/15 Methylphenidate HCl [Ritalin LA] 40 mg PO DAILY 09/04/17 Physical Exam-Neuro Vital Signs: Vital Signs Temperature 98.6 F 09/05/17 06:52 Pulse Rate 92 H 09/05/17 06:52 Respiratory Rate 16 09/05/17 06:52 Blood Pressure 147/88 09/05/17 06:52 O2 Sat by Pulse Oximetry (%) 94 L 09/04/17 21:00 Labs: CBC, BMP 09/04/17 05:54 09/04/17 05:54 INR, PTT INR 1.04 (0.82-1.09) 09/03/17 23:00 - Neuro Exam Level Of Consciousness: Yes: Alert (awake, but confused, not oriented to place, yr, follows simple commands, no focal weakness, no sesnory level ) Imaging - Results Cat Scan: Image Reviewed Problem List - Problems (1) Epilepsy Code(s): G40.909 - EPILEPSY, UNSP, NOT INTRACTABLE, WITHOUT STATUS EPILEPTICUS (2) Leukocytosis Code(s): D72.829 - ELEVATED WHITE BLOOD CELL COUNT, UNSPECIFIED (3) Post-ictal state Code(s): R56.9 - UNSPECIFIED CONVULSIONS Assessment/Plan 72 yr old man with hx 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 His called him this morning but he did not pickle pumper and she tried again in the evening, when he did not answer she called the neighbhors who found him down and immobile in his home. Last known normal was yesterday evening. upon arrival to ED, as per ED resident pt was incontinent of urine on his clothes. Hx on being on lamitcal--does not know dose and HX of noncompliance ; recent admission to [facility] for breakthrough Sz as well. limited HX , states lives with --though she does not live him; does not recall year or president--confused. HD CT prelim (-) ? positical vs FTD (fronto temporal dementia- primary progressive aphasia ??) vs other MRI BRAIN (-) stroke kindly get number of outpt neuro and get prior details resume lamictal dose 200BID ? if he should be left alone at [facility] without supervision-will monitor Dr Godinez Problem List - Problems (1) Epilepsy Code(s): G40.909 - EPILEPSY, UNSP, NOT INTRACTABLE, WITHOUT STATUS EPILEPTICUS (2) Leukocytosis Code(s): D72.829 - ELEVATED WHITE BLOOD CELL COUNT, UNSPECIFIED (3) Post-ictal state Code(s): R56.9 - UNSPECIFIED CONVULSIONS
[2017-09-05] MEDS ORDERED: METHYLPHENIDATE HCL 40 MG PO SCH (10:00)
[2017-09-05] MEDS ORDERED: PT OWN MED DRAWER 7, Y5N ONE ×2 (10:41→10:59)
[2017-09-05] MEDS: ASPIRIN 81 MG CHEWABLE TABLETS PO SCH (10:49)
[2017-09-05] MEDS: amLODIPine BESYLATE 5 MG TABLET (FP) PO SCH (10:49)
[2017-09-05] MEDS: SERTRALINE HCL 25 MG TABLET (FP) PO SCH (10:49)
--- NOTE | 2017-09-05 11:05 | EKG ---
Test Reason : Blood Pressure : / mmHG Vent. Rate : 145 BPM Atrial Rate : 145 BPM P-R Int : 000 ms QRS Dur : 104 ms QT Int : 282 ms P-R-T Axes : 000 041 091 degrees QTc Int : 438 ms SINUS TACHYCARDIA WITH OCCASIONAL PREMATURE VENTRICULAR COMPLEXES NONSPECIFIC ST AND T WAVE ABNORMALITY ABNORMAL ECG WHEN COMPARED WITH ECG OF 04-SEP-2017 00:13, PREMATURE VENTRICULAR COMPLEXES ARE NOW PRESENT PREMATURE ATRIAL COMPLEXES ARE NO LONGER PRESENT VENT. RATE HAS INCREASED BY 60 BPM T WAVE VARIATION Confirmed by JENARO DRAKE MD ([id number]) on 09/05/2017 11:05:16 AM Referred By: Confirmed By:JENARO DRAKE MD
[2017-09-05] MEDS ORDERED: lamoTRIgine 100 MG TABLET (FP) PO SCH (11:26)
[2017-09-05] MEDS: lamoTRIgine 100 MG TABLET (FP) PO SCH ×2 (12:14→22:19)
--- NOTE | 2017-09-05 12:58 | PN ---
Physical Exam: SUBJECTIVE: Patient seen and examined No acute events overnight. Patient confused this morning and unsure what happened that landed him in the hospital. Patient states he had a pervious seizure in May 2017. OBJECTIVE: Vital Signs Period Temp Pulse Resp BP Sys/Gong Pulse Ox Last 24 Hr 98.2 F-99.1 F 64-100 16-20 110-147/59-88 94 GENERAL: The patient is awake, alert, confused, in no acute distress. HEAD: Normal with no signs of trauma. EYES: PERRL, extraocular movements intact, sclera anicteric, conjunctiva clear. No ptosis. ENT: Oropharynx clear without exudates, Dry MM, left sided tongue lesion NECK: Trachea midline, full range of motion, supple. LUNGS: Breath sounds equal, clear to auscultation bilaterally, no wheezes, no crackles, no accessory muscle use. HEART: Regular rate and rhythm, S1, S2 without murmur, rub or gallop. ABDOMEN: Soft, nontender, nondistended, normoactive bowel sounds, no guarding, no rebound, no hepatosplenomegaly, no masses. EXTREMITIES: 2+ pulses, warm, well-perfused, no edema. NEUROLOGICAL: Cranial nerves II through XII grossly intact. 5/5 strength, sensation intact, reflexes 2+, words trail off while speaking. PSYCH: Normal mood, normal affect. SKIN: Warm, dry, normal turgor, no rashes or lesions noted Laboratory Results - last 24 hr 09/04/17 09/05/17 09/05/17 13:15 06:30 06:30 WBC 9.7 D RBC 3.78 L Hgb 12.0 Hct 35.1 L MCV 93.0 MCH 31.9 MCHC 34.3 RDW 14.7 Plt Count 200 D MPV 8.6 Neutrophils % 84.0 H Lymphocytes % 9.9 D Monocytes % 5.3 Eosinophils % 0.4 D Basophils % 0.4 Sodium 143 Potassium 3.6 Chloride 112 H Carbon Dioxide 24 Anion Gap 7 L BUN 18 D Creatinine 1.1 D Random Glucose 101 Calcium 8.2 L Phosphorus 2.1 L Magnesium 1.9 Creatine Kinase 3774 H Creatine Kinase Index 0.2 CK-MB (CK-2) 8.762 H Urine Creatinine 57.4 09/05/17 08:05 WBC RBC Hgb Hct MCV MCH MCHC RDW Plt Count MPV Neutrophils % Lymphocytes % Monocytes % Eosinophils % Basophils % Sodium Potassium Chloride Carbon Dioxide Anion Gap BUN Creatinine Random Glucose Calcium Phosphorus Magnesium Creatine Kinase Cancelled Creatine Kinase Index CK-MB (CK-2) Urine Creatinine Active Medications Generic Name Dose Route Start Last Admin Trade Name Adalbertoq PRN Reason Stop Dose Admin Amlodipine Besylate 5 mg 09/04/17 11:15 09/05/17 10:49 Norvasc - PO 5 mg DAILY CONCEPCION Administration Aspirin 81 mg 09/05/17 10:00 09/05/17 10:49 Asa - PO 81 mg DAILY CONCEPCION Administration Heparin Sodium (Porcine) 5,000 unit 09/04/17 06:00 09/05/17 06:56 Heparin - SQ 5,000 unit TID CONCEPCION Administration Sodium Chloride 1,000 mls @ 125 mls/hr 09/04/17 03:40 09/05/17 05:30 Normal Saline - IV 125 mls/hr ASDIR CONCEPCION Administration Lamotrigine 200 mg 09/05/17 11:30 09/05/17 12:14 Lamictal - PO Not Given BID CONCEPCION Non-Formulary Medication 40 mg 09/05/17 10:00 Methylphenidate Hcl [Ritalin La] PO DAILY CONCEPCION Sertraline HCl 75 mg 09/05/17 10:00 09/05/17 10:49 Zoloft - PO 75 mg DAILY CONCEPCION Administration ASSESSMENT/PLAN: 72yo man with hx of seizures disorder bibems after being found in his home placed in observation in [facility]. #AMS likely due to post-ictal stage of seizure -MRI brain pending -Lamictal 200 mg bid started -Beltran D/c -Neuro checks -seizure precautions -Neurology consult, Dr. Godinez #OBDULIA - likely 2/2 to rhabdo -IVF @ 125 cc/hr -CK improving -hold ramipril -renal stone with mild left hydro #Leukocytosis- likely reactive -trend CBC - monitor off abx #HTN -norvasc 5 mg daily #Depression -zoloft 75 mg #History of CAD -cont asa 81 mg #DVT ppx- heparin sc Visit type - Emergency Visit Emergency Visit: Yes ED Registration Date: 09/04/17 Care time: The patient presented to the Emergency Department on the above date and was hospitalized for further evaluation of their emergent condition. - New Patient This patient is new to me today: Yes Date on this admission: 09/05/17 - Critical Care Critical Care patient: No
--- NOTE | 2017-09-05 13:16 | PN ---
Teaching Attending Note Name of Resident: James Mccoy ATTENDING PHYSICIAN STATEMENT I saw and evaluated the patient. I reviewed the resident's note and discussed the case with the resident. I agree with the resident's findings and plan as documented. SUBJECTIVE: refuses to answer questions. His thinks he is at his base line but he is difficult and stubborn. she thinks his speech is at base line . refused IVF. OBJECTIVE: NAD , Awake , not cooperative, declined exam. no facial droop seen. mild expressive aphasia Assessment/Plan: 72 y/o man with h/o seizures , non compliance , ADHD, CAD , HTN , prostate cancer currently on radiation therapy who presented after being found down 1- Possible seizure and posictal state : due to non compliance with meds confirms that he missed 2 doses of lamictal. - he took a lamictal form his home meds this am - will mushtaq Ordonez to lamictal . d/w Dr. carlson - MRI to r/o stroke. 2- OBDULIA: likely due to Rhabdo with possible volume depletion . Cr improved with IVF - refuses IVF. monitor renal function - cont to hold ramipril - US with L hydro and non obstructing stone. this could be due to distal obstructing stone or due to his prostate cancer. pt is concerned about over- testing. will hold off CT scan for now. - f/u with uro as long as renal function has improved 3- Rhabdomyolysis : - cont IVF if he agrees 4- Tachycardia: sinus tachy on EKG form last night . now back in HR of 140s. will order EKG . likely sinus due to volume depletion and now aggravation . IVF 5- h/o CAD, HTN : cont ASA . hold ramipril due to OBDULIA , will resume if Cr remains stable 6- Leukocytosis : no signs of infection. resolved HLOC
[2017-09-05] MEDS ORDERED: NAPH,MB-DB/K PH,MBDB POWDER PACKET PO ONE (14:15)
[2017-09-06] MEDS: SODIUM CHLORIDE 1,000 ML IV SCH (05:41)
[2017-09-06] MEDS: HEPARIN NA (PORCINE) 5,000 UNITS/ML 1ML VIAL SQ SCH ×3 (05:42→22:13)
[2017-09-06] MEDS ORDERED: PT OWN MED DRAWER 7, Y5N ONE (08:04)
[2017-09-06] MEDS: lamoTRIgine 100 MG TABLET (FP) PO SCH ×2 (09:52→22:13)
[2017-09-06] MEDS: amLODIPine BESYLATE 5 MG TABLET (FP) PO SCH (10:36)
[2017-09-06] MEDS: SERTRALINE HCL 25 MG TABLET (FP) PO SCH (10:36)
[2017-09-06] MEDS: ASPIRIN 81 MG CHEWABLE TABLETS PO SCH (10:37)
[2017-09-06 12:06] LABS: BASO % 0.4 % (0-2.0); EOS % 0.5 % (0-4.5); HEMATOCRIT 41.2 % (35.4-49); LYMPH % 9.1 % (8-40); MCH 31.6 pg (25.7-33.7); MCHC 34.1 g/dl (32.0-35.9); MEAN CELL VOLUME 92.6 fl (80-96); MEAN PLT VOLUME 8.2 fl (7.5-11.1); MONO % 5.9 % (3.8-10.2); NEUT % 84.1 % (42.8-82.8); PLATELET COUNT 268 K/MM3 (134-434); RBC 4.45 M/mm3 (4.00-5.60); RDW 14.5 % (11.9-15.9); WHITE BLOOD COUNT 10.1 K/mm3 (4.0-10.0)
[2017-09-06 12:52] LABS: ALBUMIN 3.5 g/dl (3.4-5.0); ALK PHOS 80 U/L (45-117); ANION GAP 8 (8-16); BILIRUBIN,TOTAL 0.6 mg/dL (0.2-1.0); BLOOD UREA NITROGEN 15 mg/dL (7-18); CALCIUM 9.2 mg/dL (8.5-10.1); CHLORIDE 107 mmol/L (98-107); CO2 25 mmol/L (21-32); CREATININE 1.3 mg/dL (0.7-1.3); GLUCOSE,RANDOM 120 mg/dL (74-106); SGOT/AST 85 U/L (15-37); SGPT/ALT 59 U/L (12-78); SODIUM 140 mmol/L (136-145); TOT PROT 6.8 g/dl (6.4-8.2)
--- NOTE | 2017-09-06 13:22 | PN ---
Progress Note, Physician Chief Complaint: seizure/confusion History of Present Illness: 72 yr old man with hx of seizure(grand mal) since 2015 HTN, CAD, prostate Ca, ADD with hyperactivity, dementia, and depression (recovering alcoholic)was bibems by neighbhors. His called him in the morning but he did not picker tender and she tried again in the evening, when he did not answer she called the neighbhors who found him down and immobile in his home. Last known normal was yesterday evening. upon arrival to ED, as per ED resident pt was incontinent of urine on his clothes. Hx on being on lamitcal--400mg and HX of noncompliance ; recent admission to [facility] for breakthrough Sz as well. Seizures Followed at [facility] by Dr. Adam Novoa. l - Current Medication List Current Medications: Active Medications Amlodipine Besylate (Norvasc -) 5 mg PO DAILY [facility] Last Admin: 09/06/17 10:36 Dose: Not Given Aspirin (Asa -) 81 mg PO DAILY [facility] Last Admin: 09/06/17 10:37 Dose: Not Given Heparin Sodium (Porcine) (Heparin -) 5,000 unit SQ TID [facility] Last Admin: 09/06/17 05:42 Dose: Not Given Sodium Chloride (Normal Saline -) 1,000 mls @ 125 mls/hr IV ASDIR [facility] Last Admin: 09/06/17 05:41 Dose: Not Given Lamotrigine (Lamictal -) 200 mg PO BID [facility] Last Admin: 09/06/17 09:52 Dose: Not Given Non-Formulary Medication (Methylphenidate Hcl [Ritalin La]) 40 mg PO DAILY [facility] Sertraline HCl (Zoloft -) 75 mg PO DAILY [facility] Last Admin: 09/06/17 10:36 Dose: Not Given - Objective Vital Signs: Vital Signs Temperature 98.0 F 09/06/17 09:00 Pulse Rate 108 H 09/06/17 09:00 Respiratory Rate 20 09/06/17 09:00 Blood Pressure 137/70 09/06/17 09:00 O2 Sat by Pulse Oximetry (%) 94 L 09/06/17 09:00 Constitutional: Yes: Well Nourished, Calm Neurological: Yes: Other (CN intact, Motor 5/5, gait steady. Calm and well related.) Labs: CBC, BMP 09/06/17 11:45 09/06/17 11:45 INR, PTT INR 1.04 (0.82-1.09) 09/03/17 23:00 Problem List - Problems (1) Epilepsy Code(s): G40.909 - EPILEPSY, UNSP, NOT INTRACTABLE, WITHOUT STATUS EPILEPTICUS (2) Post-ictal state Code(s): R56.9 - UNSPECIFIED CONVULSIONS (3) Post-ictal confusion Code(s): F05 - DELIRIUM DUE TO KNOWN PHYSIOLOGICAL CONDITION Assessment/Plan Now calmer, lucid, but with baseline dementia. Will need to resume outpatient medication and f/u with his outpatient physicians. No evidence of stroke.
--- NOTE | 2017-09-06 14:20 | PN ---
Physical Exam: SUBJECTIVE: Patient seen and examined Overnight, patient had visual hallucinations. Patient states he was seeing people, but they were not telling him to do anything. This morning, patient is speaking more clearly but still confused and paranoid. Patient refused his medications and treatment yesterday. This morning he was able to take lamictal, but only his home medications. Denies SI/HI. OBJECTIVE: Vital Signs Period Temp Pulse Resp BP Sys/Gong Pulse Ox Last 24 Hr 98.0 F-98.9 F 108-132 20-20 137-142/70-98 94 GENERAL: The patient is awake, alert, confused, in no acute distress. HEAD: Normal with no signs of trauma. EYES: PERRL, extraocular movements intact, sclera anicteric, conjunctiva clear. No ptosis. ENT: Oropharynx clear without exudates, Dry MM, left sided tongue lesion NECK: Trachea midline, full range of motion, supple. LUNGS: Breath sounds equal, clear to auscultation bilaterally, no wheezes, no crackles, no accessory muscle use. HEART: Regular rate and rhythm, S1, S2 without murmur, rub or gallop. ABDOMEN: Soft, nontender, nondistended, normoactive bowel sounds, no guarding, no rebound, no hepatosplenomegaly, no masses. EXTREMITIES: 2+ pulses, warm, well-perfused, no edema. NEUROLOGICAL: Cranial nerves II through XII grossly intact. 5/5 strength, sensation intact, reflexes 2+, words trail off while speaking. PSYCH: Normal mood, normal affect. SKIN: Warm, dry, normal turgor, no rashes or lesions noted Laboratory Results - last 24 hr 09/06/17 09/06/17 09/06/17 11:45 11:45 11:45 WBC 10.1 H RBC 4.45 Hgb 14.0 D Hct 41.2 D MCV 92.6 MCH 31.6 MCHC 34.1 RDW 14.5 Plt Count 268 D MPV 8.2 Neutrophils % 84.1 H Lymphocytes % 9.1 Monocytes % 5.9 Eosinophils % 0.5 Basophils % 0.4 Sodium 140 Potassium 4.0 Chloride 107 Carbon Dioxide 25 Anion Gap 8 BUN 15 Creatinine 1.3 Creat Clearance w eGFR 53.96 Random Glucose 120 H Calcium 9.2 Total Bilirubin 0.6 AST 85 H ALT 59 D Alkaline Phosphatase 80 Creatine Kinase 1655 H Creatine Kinase Index 0.1 CK-MB (CK-2) 3.008 Total Protein 6.8 Albumin 3.5 Active Medications Generic Name Dose Route Start Last Admin Trade Name Chavez PRN Reason Stop Dose Admin Amlodipine Besylate 5 mg 09/04/17 11:15 09/06/17 10:36 Norvasc - PO Not Given DAILY [facility] Aspirin 81 mg 09/05/17 10:00 09/06/17 10:37 Asa - PO Not Given DAILY [facility] Heparin Sodium (Porcine) 5,000 unit 09/04/17 06:00 09/06/17 13:36 Heparin - SQ Not Given TID [facility] Sodium Chloride 1,000 mls @ 125 mls/hr 09/04/17 03:40 09/06/17 05:41 Normal Saline - IV Not Given ASDIR [facility] Lamotrigine 200 mg 09/05/17 11:30 09/06/17 09:52 Lamictal - PO Not Given BID [facility] Non-Formulary Medication 40 mg 09/05/17 10:00 Methylphenidate Hcl [Ritalin La] PO DAILY [facility] Sertraline HCl 75 mg 09/05/17 10:00 09/06/17 10:36 Zoloft - PO Not Given DAILY [facility] ASSESSMENT/PLAN: 72yo man with hx of seizures disorder bibems after being found in his home placed in observation in [facility]. #AMS likely due to post-ictal stage of seizure -MRI brain reveals no stroke -Lamictal 200 mg bid -seizure precautions -Neurology consult, Dr. Godinez -Psychiatry consult for decision capacity as well as hallucination symptoms, Dr. Wise -Dr. Funk has spoken with patient's psychopharmacologist #OBDULIA - likely 2/2 to rhabdo -IVF @ 125 cc/hr, patient is refusing -CK improving -hold ramipril, patient is taking home dose -renal stone with mild left hydro #Leukocytosis- likely reactive - trend CBC #HTN -norvasc 5 mg daily, hold ramipril #Depression -zoloft 75 mg #History of CAD -cont asa 81 mg #DVT ppx- heparin sc Dispo: pending psych evaluation Visit type - Emergency Visit Emergency Visit: Yes ED Registration Date: 09/05/17 Care time: The patient presented to the Emergency Department on the above date and was hospitalized for further evaluation of their emergent condition. - New Patient This patient is new to me today: No - Critical Care Critical Care patient: No
--- NOTE | 2017-09-06 14:45 | PN ---
Teaching Attending Note Name of Resident: James Mccoy ATTENDING PHYSICIAN STATEMENT I saw and evaluated the patient. I reviewed the resident's note and discussed the case with the resident. I agree with the resident's findings and plan as documented. SUBJECTIVE: last night had visual and auditory hallucinations. denies any SI. denies CP or SOB. has no weakness, numbness or tingling. he refused meds yesterday and continue to take home meds including his ramipril. he took one home lamictal this am , but none last night. OBJECTIVE: NAD Cv: RRR Lungs: CTAB Ext: no edema neuor: nl speech. EOMi, round equal pupils , reactive to light , no facial droop , tongue at mid line . strenght 5/5 in upper and lwoer ext proximally and distally. sensation to light touch NL. reflexes 2+ knee jerk and biceps b/l. nose to finger nl ASSESSMENT AND PLAN: 72 y/o man with h/o seizures , non compliance , dementia , ADHD, CAD , HTN , prostate cancer currently on radiation therapy who presented after being found down 1- Possible seizure and posictal state : due to non compliance with meds . now not aphasic any more and more lucid but refuses treatment and paranoid with viaual and auditory hallucinations - cont lamictal if he agrees to take it - MRI with no stroke - need psych eval as his hallucination could be acure delirium or acute psychosis . also need determination of decision making capacity - will touch base with ( [id number] ) who treat patient as outpt . 2- OBDULIA: likely due to Rhabdo with possible volume depletion . Cr improved with IVF pt cont to take his home ramipril although it is being held - cont to refuse IVF - CPK is still > 1000 - advised ot to take any meds form home - US with L hydro and non obstructing stone. this could be due to distal obstructing stone or due to his prostate cancer. pt is concerned about over- testing. will hold off CT scan for now. - f/u with uro as long as renal function has improved 3- Rhabdomyolysis : - refuses IVF 4- Tachycardia: sinus tachy resolved 5- h/o CAD, HTN : cont ASA . hold ramipril 6- Leukocytosis : no signs of infection. resolved HLOC Not allowed to leave AMA unless he is deemed capable of making decisions by psych
--- NOTE | 2017-09-06 16:49 | CON.PSY ---
Psychiatry Consult Chief Complaint: 72 year old White male with a history of Seizure Disorder, Depressive disorder and CA undergoing radiation. Patient was brought in by [facility] for cacute confusion and ? wandering behaviour. Patient livesc alone cbut told me that he lived with his . Poor historian and appears very overwhelmed. Has been forgetting to take meds on a regul;ar basis. Symptoms: reports: Memory Impairment, Irritability, Disorganized/Disruptive Thoughts, Hallucinations - Previous Psychiatric Treatment Outpatient: Less than 6 mos ago Inpatient: None - Previous Substance Abuse Treatment Outpatient: None Inpatient: None - Reason for Previous Treatment Reason for Previous Treatment: Major Depression - Current Medications Current Medications: Active Medications Amlodipine Besylate (Norvasc -) 5 mg PO DAILY [facility] Last Admin: 09/06/17 10:36 Dose: Not Given Aspirin (Asa -) 81 mg PO DAILY [facility] Last Admin: 09/06/17 10:37 Dose: Not Given Heparin Sodium (Porcine) (Heparin -) 5,000 unit SQ TID [facility] Last Admin: 09/06/17 13:36 Dose: Not Given Sodium Chloride (Normal Saline -) 1,000 mls @ 125 mls/hr IV ASDIR [facility] Last Admin: 09/06/17 05:41 Dose: Not Given Lamotrigine (Lamictal -) 200 mg PO BID [facility] Last Admin: 09/06/17 09:52 Dose: Not Given Non-Formulary Medication (Methylphenidate Hcl [Ritalin La]) 40 mg PO DAILY [facility] Sertraline HCl (Zoloft -) 75 mg PO DAILY [facility] Last Admin: 09/06/17 10:36 Dose: Not Given - Allergies Allergies: Allergies Allergy/AdvReac Type Severity Reaction Status Date / Time Penicillins Allergy Intermediate Rash Verified 09/03/17 23:17 - Current Living Status Usual Living Arrangement: Alone - Current Mental Status Evaluation Appearance: Well Groomed Attitude: Cooperative - Affect Affect: Constrictive Appropriateness: Appropriate to Content - Mood Mood: Anxious - Speech/Language Expressive: Delayed - Psychomotor Activity Psychomotor Activity: Slowed - Thought Process Thought Process: Circumstantial - Thought Content Hallucinations: Absent Delusions: Absent - Self Perception Self Perception: No Impairment - Cognition Attention: Diminished Orientation: Time, Person, Place Memory, Short Term: 1/3 Memory, Remote with Promptin/3 - Concentration Serial Sevens Intact: No Simple Calculations Intact: No - Abstraction Proverb Interpretation: Impaired Judgement: Moderately Impaired - Insight Insight: Impaired - Impulse Control Impulse Control: Moderately Impaired - Suicidal Ideation Suicidal Ideation: No - Homicidal Ideation Homicidal Ideation: No Assessment/Plan 1) Patient appears to have acute short term memory impairment and poor thought organization and recall. unable to comprehend at this time. 2) Certainly blacks capacity to make decisions at this time.. ? Post Ictal?? 3) No need for anti psychotic meds at this time.
--- NOTE | 2017-09-06 18:10 | HOSP ---
Physical Examination Vital Signs: Vital Signs Temperature 98.8 F 09/06/17 17:55 Pulse Rate 88 09/06/17 17:55 Respiratory Rate 20 09/06/17 17:55 Blood Pressure 154/88 09/06/17 17:55 O2 Sat by Pulse Oximetry (%) 94 L 09/06/17 09:00 Labs: CBC, BMP 09/06/17 11:45 09/06/17 11:45 Hospitalist Encounter Assessment: called Dr. Russo [phone] Pt's psychiatrist for many years. As per the physician, pt does have a hx of psychosis, psychotic episodes, paranoia, schizophrenia, hallucination, or misperceptions He has not been admitted to a psychiatric facility for psychosis in the [facility]. Dr. Russo does not recall a previous post-ictal state lasting this long or with these symptoms. Patient does not have baseline psychosis. As far as this physician is aware, Mr. Trevino has not been diagnosed with dementia and does not carry that diagnosis. he has been part of an observational study at [facility] or some other instutition(physician did not recall exact hospital) that monitored/tested for early cognitive changes in ADD patient. No medication/treatment was being provided and the study had not found any indication that Mr. Trevino had developed dementia, as far as Dr. Russo was aware. Dr. Russo is away for the next weeks. He recommend psych evaluation for inpatient psych for acute and recommends the consideration of haldol.
[2017-09-07] MEDS: HEPARIN NA (PORCINE) 5,000 UNITS/ML 1ML VIAL SQ SCH ×3 (05:23→22:33)
[2017-09-07] MEDS: SODIUM CHLORIDE 1,000 ML IV SCH (05:23)
[2017-09-07 07:06] LABS: BASO % 0.9 % (0-2.0); EOS % 3.1 % (0-4.5); HEMATOCRIT 37.2 % (35.4-49); HEMOGLOBIN 12.8 GM/dL (11.7-16.9); LYMPH % 19.8 % (8-40); MCH 32.1 pg (25.7-33.7); MCHC 34.4 g/dl (32.0-35.9); MEAN CELL VOLUME 93.4 fl (80-96); MEAN PLT VOLUME 8.3 fl (7.5-11.1); MONO % 7.7 % (3.8-10.2); NEUT % 68.5 % (42.8-82.8); PLATELET COUNT 229 K/MM3 (134-434); RBC 3.98 M/mm3 (4.00-5.60); RDW 14.9 % (11.9-15.9); WHITE BLOOD COUNT 5.7 K/mm3 (4.0-10.0)
[2017-09-07 07:25] LABS: ANION GAP 5 (8-16); BLOOD UREA NITROGEN 16 mg/dL (7-18); CALCIUM 9.1 mg/dL (8.5-10.1); CHLORIDE 109 mmol/L (98-107); CO2 30 mmol/L (21-32); CREATININE 1.3 mg/dL (0.7-1.3); GLUCOSE,RANDOM 96 mg/dL (74-106); SODIUM 144 mmol/L (136-145)
--- NOTE | 2017-09-07 09:05 | PN ---
Physical Exam: SUBJECTIVE: Patient seen and examined No acute events overnight. Feels well this morning. Having no more hallucinations OBJECTIVE: Vital Signs Period Temp Pulse Resp BP Sys/Gong Pulse Ox Last 24 Hr 97.8 F-98.8 F 74-98 20-22 125-154/73-88 96 GENERAL: The patient is awake, alert, confused, in no acute distress. HEAD: Normal with no signs of trauma. EYES: PERRL, extraocular movements intact, sclera anicteric, conjunctiva clear. No ptosis. ENT: Oropharynx clear without exudates, Dry MM, left sided tongue lesion NECK: Trachea midline, full range of motion, supple. LUNGS: Breath sounds equal, clear to auscultation bilaterally, no wheezes, no crackles, no accessory muscle use. HEART: Regular rate and rhythm, S1, S2 without murmur, rub or gallop. ABDOMEN: Soft, nontender, nondistended, normoactive bowel sounds, no guarding, no rebound, no hepatosplenomegaly, no masses. EXTREMITIES: 2+ pulses, warm, well-perfused, no edema. NEUROLOGICAL: Cranial nerves II through XII grossly intact. 5/5 strength, sensation intact, reflexes 2+, words trail off while speaking. PSYCH: Normal mood, normal affect. SKIN: Warm, dry, normal turgor, no rashes or lesions noted Laboratory Results - last 24 hr 09/03/17 09/04/17 09/06/17 23:00 05:27 11:45 WBC 10.1 H RBC 4.45 Hgb 14.0 D Hct 41.2 D MCV 92.6 MCH 31.6 MCHC 34.1 RDW 14.5 Plt Count 268 D MPV 8.2 Neutrophils % 84.1 H Lymphocytes % 9.1 Monocytes % 5.9 Eosinophils % 0.5 Basophils % 0.4 Sodium Potassium Chloride Carbon Dioxide Anion Gap BUN Creatinine Creat Clearance w eGFR Random Glucose Calcium Total Bilirubin AST ALT Alkaline Phosphatase Creatine Kinase Creatine Kinase Index CK-MB (CK-2) Total Protein Albumin Urine Myoglobin 440 H Urine Osmolality Cancelled Lamotrigine 3.3 09/06/17 09/06/17 09/07/17 11:45 11:45 06:38 WBC 5.7 D RBC 3.98 L Hgb 12.8 Hct 37.2 MCV 93.4 MCH 32.1 MCHC 34.4 RDW 14.9 Plt Count 229 MPV 8.3 Neutrophils % 68.5 Lymphocytes % 19.8 D Monocytes % 7.7 Eosinophils % 3.1 D Basophils % 0.9 Sodium 140 Potassium 4.0 Chloride 107 Carbon Dioxide 25 Anion Gap 8 BUN 15 Creatinine 1.3 Creat Clearance w eGFR 53.96 Random Glucose 120 H Calcium 9.2 Total Bilirubin 0.6 AST 85 H ALT 59 D Alkaline Phosphatase 80 Creatine Kinase 1655 H Creatine Kinase Index 0.1 CK-MB (CK-2) 3.008 Total Protein 6.8 Albumin 3.5 Urine Myoglobin Urine Osmolality Lamotrigine 09/07/17 06:38 WBC RBC Hgb Hct MCV MCH MCHC RDW Plt Count MPV Neutrophils % Lymphocytes % Monocytes % Eosinophils % Basophils % Sodium 144 Potassium 4.0 Chloride 109 H Carbon Dioxide 30 Anion Gap 5 L BUN 16 Creatinine 1.3 Creat Clearance w eGFR Random Glucose 96 Calcium 9.1 Total Bilirubin AST ALT Alkaline Phosphatase Creatine Kinase Creatine Kinase Index CK-MB (CK-2) Total Protein Albumin Urine Myoglobin Urine Osmolality Lamotrigine Active Medications Generic Name Dose Route Start Last Admin Trade Name Freq PRN Reason Stop Dose Admin Amlodipine Besylate 5 mg 09/04/17 11:15 09/06/17 10:36 Norvasc - PO Not Given DAILY [facility] Aspirin 81 mg 09/05/17 10:00 09/06/17 10:37 Asa - PO Not Given DAILY [facility] Heparin Sodium (Porcine) 5,000 unit 09/04/17 06:00 09/07/17 05:23 Heparin - SQ Not Given TID [facility] Sodium Chloride 1,000 mls @ 125 mls/hr 09/04/17 03:40 09/07/17 05:23 Normal Saline - IV Not Given ASDIR [facility] Lamotrigine 200 mg 09/05/17 11:30 09/06/17 22:13 Lamictal - PO 200 mg BID [facility] Administration Non-Formulary Medication 40 mg 09/05/17 10:00 Methylphenidate Hcl [Ritalin La] PO DAILY [facility] Sertraline HCl 75 mg 09/05/17 10:00 09/06/17 10:36 Zoloft - PO Not Given DAILY [facility] ASSESSMENT/PLAN: 72yo man with hx of seizures disorder bibems after being found in his home placed in observation in tele. #AMS likely due to post-ictal stage of seizure with psychosis -MRI brain reveals no stroke -Lamictal 200 mg bid -seizure precautions -Neurology consult, Dr. Godinez -Psychiatry consult, Dr. Wise -Dr. Funk has spoken with patient's psychopharmacologist #OBDULIA - likely 2/2 to rhabdo -IVF @ 125 cc/hr, patient is refusing -CK improving -hold ramipril, patient is taking home dose -renal stone with mild left hydro #Leukocytosis- likely reactive - trend CBC #HTN - norvasc 5 mg daily, hold ramipril #Depression -zoloft 75 mg #History of CAD -cont asa 81 mg #DVT ppx- heparin sq Dispo: can likely be dc tmrw Visit type - Emergency Visit Emergency Visit: Yes ED Registration Date: 09/05/17 Care time: The patient presented to the Emergency Department on the above date and was hospitalized for further evaluation of their emergent condition. - New Patient This patient is new to me today: No - Critical Care Critical Care patient: No
[2017-09-07] MEDS: SERTRALINE HCL 25 MG TABLET (FP) PO SCH (10:23)
[2017-09-07] MEDS: ASPIRIN 81 MG CHEWABLE TABLETS PO SCH (10:23)
[2017-09-07] MEDS: lamoTRIgine 100 MG TABLET (FP) PO SCH ×2 (10:23→22:33)
[2017-09-07] MEDS: amLODIPine BESYLATE 5 MG TABLET (FP) PO SCH (10:23)
--- NOTE | 2017-09-07 12:57 | PN ---
Teaching Attending Note Name of Resident: James Mccoy ATTENDING PHYSICIAN STATEMENT I saw and evaluated the patient. I reviewed the resident's note and discussed the case with the resident. I agree with the resident's findings and plan as documented. SUBJECTIVE: Patient feels unsteady while ambulating. OBJECTIVE: Vital Signs Period Temp Pulse Resp BP Sys/Gong Pulse Ox Last 24 Hr 97.8 F-98.8 F 74-98 20-22 125-154/73-88 96-96 HEAR: S1S2, RRR LUNGS: Clear ABDOMEN: Soft, non-tender, non-distended, normal BS EXTREMITIES: No edema Laboratory Results - last 24 hr 09/03/17 09/04/17 09/06/17 23:00 05:27 11:45 WBC RBC Hgb Hct MCV MCH MCHC RDW Plt Count MPV Neutrophils % Lymphocytes % Monocytes % Eosinophils % Basophils % Sodium 140 Potassium 4.0 Chloride 107 Carbon Dioxide 25 Anion Gap 8 BUN 15 Creatinine 1.3 Creat Clearance w eGFR 53.96 Random Glucose 120 H Calcium 9.2 Total Bilirubin 0.6 AST 85 H ALT 59 D Alkaline Phosphatase 80 Creatine Kinase Creatine Kinase Index CK-MB (CK-2) Total Protein 6.8 Albumin 3.5 Urine Myoglobin 440 H Urine Osmolality Cancelled Lamotrigine 3.3 09/06/17 09/07/17 09/07/17 11:45 06:38 06:38 WBC 5.7 D RBC 3.98 L Hgb 12.8 Hct 37.2 MCV 93.4 MCH 32.1 MCHC 34.4 RDW 14.9 Plt Count 229 MPV 8.3 Neutrophils % 68.5 Lymphocytes % 19.8 D Monocytes % 7.7 Eosinophils % 3.1 D Basophils % 0.9 Sodium 144 Potassium 4.0 Chloride 109 H Carbon Dioxide 30 Anion Gap 5 L BUN 16 Creatinine 1.3 Creat Clearance w eGFR Random Glucose 96 Calcium 9.1 Total Bilirubin AST ALT Alkaline Phosphatase Creatine Kinase 1655 H Creatine Kinase Index 0.1 CK-MB (CK-2) 3.008 Total Protein Albumin Urine Myoglobin Urine Osmolality Lamotrigine Current Medications Generic Name Dose Route Start Last Admin Trade Name Freq PRN Reason Stop Dose Admin Amlodipine Besylate 5 mg 09/04/17 11:15 09/07/17 10:23 Norvasc - PO Not Given DAILY [facility] Aspirin 81 mg 09/05/17 10:00 09/07/17 10:23 Asa - PO Not Given DAILY [facility] Heparin Sodium (Porcine) 5,000 unit 09/04/17 06:00 09/07/17 05:23 Heparin - SQ Not Given TID [facility] Sodium Chloride 1,000 mls @ 125 mls/hr 09/04/17 03:40 09/07/17 05:23 Normal Saline - IV Not Given [facility] Lamotrigine 200 mg 09/05/17 11:30 09/07/17 10:23 Lamictal - PO 200 mg BID [facility] Administration Non-Formulary Medication 40 mg 09/05/17 10:00 Methylphenidate Hcl [Ritalin La] PO DAILY [facility] Sertraline HCl 75 mg 09/05/17 10:00 09/07/17 10:23 Zoloft - PO Not Given DAILY [facility] ASSESSMENT AND PLAN: This is a 72 year old man with a history of seizures, ADHD, CAD, HTN, prostate cancer, depression who presented to the ED after being found on the floor at home. 1. Seizure secondary to non-compliance with medication - Continue Lamictal 2. Acute delirium with paranoia - Improving - Psychiatry follow up 3. Acute kidney injury - Improved 4. Stage 3 CKD 5. Rhabomyolysis - Improving - Continue PO fluids (patient refusing IV) - Recheck CK 6. Left hydronephrosis, mild - Outpatient urology follow up 7. CAD - Continue aspirin 8. HTN - Continue Norvasc - Altace held secondary to OBDULIA 9. ADHD - Continue Ritalin 10. Prostae cancer 11. Depression - Continue Zoloft
[2017-09-08] MEDS: SODIUM CHLORIDE 1,000 ML IV SCH (06:27)
[2017-09-08] MEDS: HEPARIN NA (PORCINE) 5,000 UNITS/ML 1ML VIAL SQ SCH ×2 (06:27→14:20)
[2017-09-08 07:20] LABS: BASO % 0.8 % (0-2.0); EOS % 2.9 % (0-4.5); HEMOGLOBIN 12.7 GM/dL (11.7-16.9); LYMPH % 18.9 % (8-40); MCH 31.9 pg (25.7-33.7); MCHC 34.2 g/dl (32.0-35.9); MEAN CELL VOLUME 93.2 fl (80-96); MEAN PLT VOLUME 8.7 fl (7.5-11.1); MONO % 8.2 % (3.8-10.2); NEUT % 69.2 % (42.8-82.8); PLATELET COUNT 234 K/MM3 (134-434); RBC 3.97 M/mm3 (4.00-5.60); RDW 14.7 % (11.9-15.9); WHITE BLOOD COUNT 6.1 K/mm3 (4.0-10.0)
[2017-09-08 07:23] LABS: ANION GAP 4 (8-16); BLOOD UREA NITROGEN 17 mg/dL (7-18); CALCIUM 8.6 mg/dL (8.5-10.1); CHLORIDE 109 mmol/L (98-107); CO2 30 mmol/L (21-32); CREATININE 1.4 mg/dL (0.7-1.3); GLUCOSE,RANDOM 87 mg/dL (74-106); POTASSIUM 4.1 mmol/L (3.5-5.1); SODIUM 143 mmol/L (136-145)
[2017-09-08] MEDS: lamoTRIgine 100 MG TABLET (FP) PO SCH (09:13)
[2017-09-08] MEDS: amLODIPine BESYLATE 5 MG TABLET (FP) PO SCH (09:14)
[2017-09-08] MEDS: ASPIRIN 81 MG CHEWABLE TABLETS PO SCH (09:14)
[2017-09-08] MEDS: SERTRALINE HCL 25 MG TABLET (FP) PO SCH (09:14)
--- NOTE | 2017-09-08 13:32 | PN ---
Progress Note (short form) - Note Progress Note: Patient seen for Psych follow up, seen along with and obtained more info. MS: Alert, oriented, good eye contact, not confused, able to comprehend. not hallucinating or delusional at this time. There jhas been significant improvemrnt in patients mental status. Rec: Patient has the mental capacity to make decisions at this time. 23) Follow up with his pvt Psychiatrist in [facility]>
--- NOTE | 2017-09-08 16:28 | DS ---
Physical Exam: Selected Entries 09/05/17 09/06/17 09/08/17 16:09 09:00 09:00 Temperature Pulse Rate 132 H 108 H Respiratory Rate Blood Pressure O2 Sat by Pulse 96 Oximetry (%) Oxygen Delivery Room Air Method 09/08/17 18:00 Temperature 97.5 F L Pulse Rate 67 Respiratory 19 Rate Blood Pressure 146/75 O2 Sat by Pulse Oximetry (%) Oxygen Delivery Method Laboratory Tests 09/03/17 09/03/17 09/03/17 23:00 23:00 23:00 WBC 22.0 H D Hgb Hct Plt Count Sodium Potassium Chloride Carbon Dioxide Anion Gap BUN Creatinine 1.7 H Random Glucose Lactic Acid Creatine Kinase 4278 H Troponin I 0.05 D Urine Blood Urine Nitrite Urine Bilirubin Ur Leukocyte Esterase Urine WBC (Auto) Urine RBC (Auto) Urine Bacteria Urine Myoglobin Urine Osmolality Urine Creatinine Lamotrigine Alcohol, Quantitative < 5.0 09/03/17 09/04/17 09/04/17 23:00 01:15 04:40 WBC Hgb Hct Plt Count Sodium Potassium Chloride Carbon Dioxide Anion Gap BUN Creatinine Random Glucose Lactic Acid 2.4 H* 1.2 Creatine Kinase Troponin I Urine Blood Urine Nitrite Urine Bilirubin Ur Leukocyte Esterase Urine WBC (Auto) Urine RBC (Auto) Urine Bacteria Urine Myoglobin Urine Osmolality Urine Creatinine Lamotrigine 3.3 Alcohol, Quantitative 09/04/17 09/04/17 09/04/17 05:27 05:27 05:54 WBC 16.5 H Hgb Hct Plt Count Sodium Potassium Chloride Carbon Dioxide Anion Gap BUN Creatinine Random Glucose Lactic Acid Creatine Kinase Troponin I Urine Blood 3+ H Urine Nitrite Negative Urine Bilirubin Negative Ur Leukocyte Esterase Negative Urine WBC (Auto) 1 Urine RBC (Auto) 3 Urine Bacteria Rare Urine Myoglobin 440 H Urine Osmolality Cancelled Urine Creatinine Lamotrigine Alcohol, Quantitative 09/04/17 09/04/17 09/05/17 05:54 13:15 06:30 WBC Hgb Hct Plt Count Sodium Potassium Chloride Carbon Dioxide Anion Gap BUN Creatinine 1.5 H Random Glucose Lactic Acid Creatine Kinase 3774 H Troponin I Urine Blood Urine Nitrite Urine Bilirubin Ur Leukocyte Esterase Urine WBC (Auto) Urine RBC (Auto) Urine Bacteria Urine Myoglobin Urine Osmolality Urine Creatinine 57.4 Lamotrigine Alcohol, Quantitative 09/06/17 09/06/17 09/08/17 11:45 11:45 05:35 WBC 10.1 H 6.1 Hgb 12.7 Hct 37.0 Plt Count 234 Sodium Potassium Chloride Carbon Dioxide Anion Gap BUN Creatinine Random Glucose Lactic Acid Creatine Kinase 1655 H Troponin I Urine Blood Urine Nitrite Urine Bilirubin Ur Leukocyte Esterase Urine WBC (Auto) Urine RBC (Auto) Urine Bacteria Urine Myoglobin Urine Osmolality Urine Creatinine Lamotrigine Alcohol, Quantitative 09/08/17 05:35 WBC Hgb Hct Plt Count Sodium 143 Potassium 4.1 Chloride 109 H Carbon Dioxide 30 Anion Gap 4 L BUN 17 Creatinine 1.4 H Random Glucose 87 Lactic Acid Creatine Kinase 534 H Troponin I Urine Blood Urine Nitrite Urine Bilirubin Ur Leukocyte Esterase Urine WBC (Auto) Urine RBC (Auto) Urine Bacteria Urine Myoglobin Urine Osmolality Urine Creatinine Lamotrigine Alcohol, Quantitative head ct- negative for acute pathology cxr-no acute patology renal sono- left stone mild left hydro Brain MRI- asymmetric volume loss in lower of right fornix HOSPITAL COURSE: Date of Admission:09/05/17 Date of Discharge: 09/08/17 72 yr old man with hx of seizure(gran mal) HTN, CAD, ADD with hyperactivity and depression was bibems found down. Patient admitted for altered mental status lkely 2/2 to post ictal seizure and OBDULIA 2/2 to atn from rhabdomyolysis (CK elevated). ? Seizure and post ictal state: patient noncompliant with medications at home. While here, patient refused treatments and was having visual and auditory hallucinations. Patient continued on his home dose of lamictal. Psych evalutaed him and determined he originally did not have decision making capacity but then decided he was able to make decisions once his psychosis resolved. MRI and CT head performed. Patient d/c on his home medications For his OBDULIA, patient's home ramipril held, CPK elevated. Given IVF, which patient refused. Patient will f/u with uro outpatient for further renal follow up given his left hydro and non obstructing stone Minutes to complete discharge: 45 Discharge Summary Reason For Visit: LEUKOCYTOSIS Current Active Problems OBDULIA (acute kidney injury) (Acute) Post-ictal state (Acute) Seizure (Acute) ADHD (Chronic) CAD (coronary artery disease) (Chronic) Depression (Chronic) HTN (hypertension) (Chronic) Condition: Stable - Instructions Diet, Activity, Other Instructions: You were in the hospital due to a possible seizure. You had some confusion during your stay, increased creatine kinase levels, elevated kidney creatine which have improved. Please follow up with your primary care provider and psychiatrist within 1-2 weeks. You may need your kidney function checked with another lab test, discuss this with Dr. Sidhu Please follow up with your neurologist within 1 week. Contact information for physicians have been provided, please call to make appointments. Bring your medications with your on your appointments and discuss them with your doctors if you have any further questions. A CD with imaging of your head CT and brain MRI have been provided for you. If you require any further information, please contact medical records at [facility] to request copies. You can also have your physicians call to receive copies. Continue your home medications as prescribed. Do not miss any doses. Aspirin 81 mg DAILY 1 tablet Buspirone 15 mg twice per day, 1 tablet in the morning and 1 tablet at night Sertraline 75 mg DAILY, 1 tablet Lamotrigine 200 mg twice per day, 1 tablet in the morning and 1 tablet at night Ramipril 10 mg DAILY, 1 tablet (Ritalin) Methylphenidate 40 mg PO DAILY, 1 tablet Continue to drink plenty of water at home. If you have chest pain, shortness of breath, seizures, worsening confusion, change in mental status, trouble urinating, blood in the urine or any new/ worsening symptoms please come back to the hospital immediately. Referrals: Demian Russo [Other] - 3 Weeks Jess Edwards MD [Primary Care Provider] - 1 Week Emre Godinez DO [Staff Physician] - Adam Novoa MD [Non Staff, Medical] - Disposition: VNS/HOME HEALTH CARE - Home Medications Comprehensive Discharge Medication List: Ambulatory Orders Aspirin [ASA -] 81 mg PO DAILY 04/29/14 Buspirone HCl [Buspar -] 15 mg PO BID 04/29/14 Sertraline HCl [Zoloft -] 75 mg PO DAILY 04/29/14 Lamotrigine [LaMICtal -] 200 mg PO BID 11/21/15 Ramipril 10 mg PO DAILY 11/21/15 Methylphenidate HCl [Ritalin LA] 40 mg PO DAILY 09/04/17 This patient is new to me today: No Emergency Visit: Yes ED Registration Date: 09/05/17 Care time: The patient presented to the Emergency Department on the above date and was hospitalized for further evaluation of their emergent condition. Critical Care patient: No - Discharge Referral Referred to [facility] Med [facility].: No
--- NOTE | 2017-09-08 16:38 | PN ---
Teaching Attending Note Name of Resident: James Mccoy ATTENDING PHYSICIAN STATEMENT I saw and evaluated the patient. I reviewed the resident's note and discussed the case with the resident. I agree with the resident's findings and plan as documented. SUBJECTIVE: Patient has no complaints. OBJECTIVE: Vital Signs Period Temp Pulse Resp BP Sys/Gong Pulse Ox Last 24 Hr 97.8 F-98.5 F 68-91 16-19 100-135/65-78 96-96 HEART: S1S2, RRR LUNGS: Clear ABDOMEN: Soft, non-tender, non-distended, normal BS EXTREMITIES: No edema Laboratory Results - last 24 hr 09/08/17 09/08/17 09/08/17 05:35 05:35 06:35 WBC 6.1 RBC 3.97 L Hgb 12.7 Hct 37.0 MCV 93.2 MCH 31.9 MCHC 34.2 RDW 14.7 Plt Count 234 MPV 8.7 Neutrophils % 69.2 Lymphocytes % 18.9 Monocytes % 8.2 Eosinophils % 2.9 Basophils % 0.8 Sodium 143 Potassium 4.1 Chloride 109 H Carbon Dioxide 30 Anion Gap 4 L BUN 17 Creatinine 1.4 H Random Glucose 87 Calcium 8.6 Creatine Kinase 534 H Cancelled Creatine Kinase Index 0.3 CK-MB (CK-2) 2.063 Current Medications Generic Name Dose Route Start Last Admin Trade Name Freq PRN Reason Stop Dose Admin Amlodipine Besylate 5 mg 09/04/17 11:15 09/08/17 09:14 Norvasc - PO Not Given DAILY CONCEPCION Aspirin 81 mg 09/05/17 10:00 09/08/17 09:14 Asa - PO 81 mg DAILY CONCEPCION Administration Heparin Sodium (Porcine) 5,000 unit 09/04/17 06:00 09/08/17 14:20 Heparin - SQ 5,000 unit TID CONCEPCION Administration Sodium Chloride 1,000 mls @ 125 mls/hr 09/04/17 03:40 09/08/17 06:27 Normal Saline - IV Not Given ASDIR CONCEPCION Lamotrigine 200 mg 09/05/17 11:30 09/08/17 09:13 Lamictal - PO 200 mg BID CONCEPCION Administration Non-Formulary Medication 40 mg 09/05/17 10:00 Methylphenidate Hcl [Ritalin La] PO DAILY CONCEPCION Sertraline HCl 75 mg 09/05/17 10:00 09/08/17 09:14 Zoloft - PO 75 mg DAILY CONCEPCION Administration ASSESSMENT AND PLAN: This is a 72 year old man with a history of seizures, ADHD, CAD, HTN, prostate cancer, depression who presented to the ED after being found on the floor at home. 1. Seizure secondary to non-compliance with medication - Continue Lamictal 2. Acute delirium with paranoia - Resolved 3. Acute kidney injury - Improved 4. Stage 3 CKD 5. Rhabomyolysis - Improved 6. Left hydronephrosis, mild - Outpatient urology follow up 7. CAD - Continue aspirin 8. HTN - Continue Norvasc - Altace held secondary to OBDULIA 9. ADHD - Continue Ritalin 10. Prostae cancer 11. Depression - Continue Zoloft 12. Ok for discharge home with VNS
[2017-09-08 18:30] VITALS: BP 146/75; PULSE 67; TEMP 97.5
== END 2017-09-08 19:27 | disposition home health service (06) | DRG 101 ==
LOC: JER 22:47 → JERBED 09-04 02:09 → J4S 09-04 07:43 → OBSVTOIN 09-05 07:00
PROVIDERS: ADMIT Internal Medicine; ATTEND Internal Medicine
DX: G40.409 Other generalized epilepsy and epileptic syndromes, not intractable, without status epilepticus (principal); M62.82 Rhabdomyolysis; E87.2 Acidosis; N17.9 Acute kidney failure, unspecified; C61 Malignant neoplasm of prostate; N18.3 Chronic kidney disease, stage 3 (moderate); F32.9 Major depressive disorder, single episode, unspecified; Z91.14 Patient's other noncompliance with medication regimen; F17.290 Nicotine dependence, other tobacco product, uncomplicated; E86.0 Dehydration; I25.10 Atherosclerotic heart disease of native coronary artery without angina pectoris; F90.9 Attention-deficit hyperactivity disorder, unspecified type; R47.02 Dysphasia; G30.9 Alzheimer's disease, unspecified; F02.80 Dementia in other diseases classified elsewhere, unspecified severity, without behavioral disturbance, psychotic disturbance, mood disturbance, and anxiety; M19.90 Unspecified osteoarthritis, unspecified site; D72.829 Elevated white blood cell count, unspecified; R41.0 Disorientation, unspecified; F22 Delusional disorders
CPT/HCPCS: 36415; 70450-TC; 70551-TC; 71045-TC-FY; 76775-TC; 80048; 80053; 80175; 80307; 81003; 81015; 82465; 82550; 82553; 82570; 83605; 83718; 83721; 83735; 83874; 83930; 83935; 84100; 84443; 84478; 84484; 85025; 85610; 85730; 87040; 87086; 93005; 93010; 99284-25; G0378; J1644; J7030

== ENCOUNTER 2017-09-28 10:48 | Observation (INO) | payer OTHER, MEDICARE ==
--- NOTE | 2017-09-28 11:45 | PDOC ---
History of Present Illness - General History Source: Patient Exam Limitations: No Limitations - History of Present Illness Initial Comments: 09/28/17 11:55 The patient is a 72 year old male, with a significant past medical history of Prostate CA (Day 7 of radiation) depression, alcohol abuse, and seizure disorder (on Lamictal), who presents to the emergency department with increased erythema to the right upper extremity for approximately 4 days. The patient reports he first noted erythema near his right elbow, and states it has since spread up his arm. He reports associated tenderness to touch, but denies any trauma. He denies any recent fever, chills, headache, or dizziness. He denies any chest pain, shortness of breath, diaphoresis, or palpitations. He denies any abdominal pain, nausea, or vomiting. Patient reports he was recently hospitalized for altered mental status. At the time, patient reports he had an IV in place, which he removed on his own. He denies any recent travel or sick contacts. Allergies: Penicillins Past Surgical History: Hernia repair Social History: ETOH abuse. Former smoker. No recreational drug use. <Stormy Klein - Last Filed: 09/28/17 11:55> <Светлана Stein - Last Filed: 09/28/17 15:14> - General Chief Complaint: Wound Stated Complaint: PCP SENT Time Seen by Provider: 09/28/17 11:33 Past History <Stormy Klein - Last Filed: 09/28/17 11:55> - Past Medical History Anemia: No Asthma: No Cancer: Yes (radiation for prostate ? mets to chest) Cardiac Disorders: No CVA: No COPD: No CHF: No Dementia: Yes (STATES "SOME" MEMORY LOSS, SOME SHORT TERM MEMORY LOSS. PRESENTLY IN A) Diabetes: (STUDY REGARDING MEMORY ISSUES @ [facility]) GI Disorders: Yes (GERD) Disorders: No HTN: Yes Hypercholesterolemia: No Liver Disease: No Psychiatric Problems: Yes (DEPRESSION) Seizures: Yes (SEIZURE DISORDER-ON LAMICTAL NOW-LAST SEIZURE 04/2014) Thyroid Disease: No Other medical history: leukocytosis, elevated creatinine - Surgical History Abdominal Surgery: Yes (hernia sx at age 23) Appendectomy: No Cardiac Surgery: No Cholecystectomy: No Lung Surgery: No Neurologic Surgery: No Orthopedic Surgery: No - Immunization History Immunization Up to Date: Yes - Suicide/Smoking/Psychosocial Hx Smoking History: Former smoker Have you smoked in the past 12 months: Yes Number of Cigarettes Smoked Daily: 15 If you are a former smoker, when did you quit?: SMOKES E-CIGARETTES Information on smoking cessation initiated: No 'Breaking Loose' booklet given: 09/04/17 Hx Alcohol Use: No (UNK) Drug/Substance Use Hx: No Substance Use Type: None Hx Substance Use Treatment: Yes (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 as per ) <Светлана Stein - Last Filed: 09/28/17 15:14> - Past Medical History Allergies/Adverse Reactions: Allergies Allergy/AdvReac Type Severity Reaction Status Date / Time Penicillins Allergy Intermediate Rash Verified 09/28/17 10:56 Home Medications: Ambulatory Orders Aspirin [ASA -] 81 mg PO DAILY 04/29/14 Buspirone HCl [Buspar -] 15 mg PO BID 04/29/14 Sertraline HCl [Zoloft -] 75 mg PO DAILY 04/29/14 Lamotrigine [LaMICtal -] 200 mg PO BID 11/21/15 Ramipril 10 mg PO DAILY 11/21/15 Methylphenidate HCl [Ritalin LA] 40 mg PO DAILY 09/04/17 Review of Systems - Review of Systems Able to Perform ROS?: Yes Comments:: 09/28/17 11:56 GENERAL/CONSTITUTIONAL: No fever or chills. No weakness. HEAD, EYES, EARS, NOSE AND THROAT: No change in vision. No ear pain or discharge. No sore throat. GASTROINTESTINAL: No nausea, vomiting, diarrhea or constipation. GENITOURINARY: No dysuria, frequency, or change in urination. CARDIOVASCULAR: No chest pain or shortness of breath. RESPIRATORY: No cough, wheezing, or hemoptysis. MUSCULOSKELETAL: No joint or muscle swelling or pain. No neck or back pain. SKIN: +Right upper extremity erythema. No rash NEUROLOGIC: No headache, vertigo, loss of consciousness, or change in strength/ sensation. ENDOCRINE: No increased thirst. No abnormal weight change. HEMATOLOGIC/LYMPHATIC: No anemia, easy bleeding, or history of blood clots. ALLERGIC/IMMUNOLOGIC: No hives or skin allergy. <Stormy Klein - Last Filed: 09/28/17 11:55> *Physical Exam - Vital Signs Last Vital Signs Temp Pulse Resp BP Pulse Ox 97.6 F 65 18 131/81 99 09/28/17 10:56 09/28/17 10:56 09/28/17 10:56 09/28/17 10:56 09/28/17 10:56 - Physical Exam Comments: 09/28/17 11:56 Constitutional: Awake, alert, oriented. No acute distress. Head: Normocephalic. Atraumatic Eyes: PERRL. EOMI. Conjunctivae are not pale. ENT: Mucous membranes are moist and intact. Posterior pharynx without exudates or erythema. Uvula midline. Neck: Supple. Full ROM. No lymphadenopathy. Cardiovascular: Regular rate. Regular rhythm. S1, S2 regular. Distal pulses are 2+ and symmetric. Pulmonary/Chest: No evidence of respiratory distress. Clear to auscultation bilaterally No wheezing, rales or rhonchi. Abdominal: Soft and non-distended. There is no tenderness. No rebound, guarding or rigidity. No organomegaly. No palpable masses. Good bowel sounds. Back: No CVA tenderness. Musculoskeletal: No edema. No cyanosis. No clubbing. Full range of motion in all extremities. No calf tenderness. Radial/pedal pulses are intact and 2+ bilaterally Skin: Red streak at medial aspect of right upper extremity radiating up to right axilla in linear fashion. Skin is warm and dry. No petechiae. No purpura. Neurological: Alert and oriented to person, place, and time. Cranial nerves II -XII are grossly intact. Normal speech. Strength is grossly symmetric. No sensory deficits. Ambulatory with steady gait Psychiatric: Good eye contact. Normal interaction, affect and behavior. <Stormy Klein - Last Filed: 09/28/17 11:55> - Vital Signs Last Vital Signs Temp Pulse Resp BP Pulse Ox 97.6 F 65 18 131/81 99 09/28/17 10:56 09/28/17 10:56 09/28/17 10:56 09/28/17 10:56 09/28/17 10:56 <Светлана Stein - Last Filed: 09/28/17 15:14> ED Treatment Course - LABORATORY CBC & Chemistry Diagram: 09/28/17 12:00 09/28/17 12:00 <Светлана Stein - Last Filed: 09/28/17 15:14> Medical Decision Making - Medical Decision Making 09/28/17 11:49 a/p:72yo male with 4 days of RUE redness and streaking -had an iv in that arm during his august hospitalization -concern for poss cellulitis vs thrombophlebitis vs dvt -will obtain labs, RUE ultrasound -discussed plan with the patient and his sister who is at the bedside answered all questions 09/28/17 14:48 pt updated on ultrasound and lab results will place in obs for cellulitis of RUE with lymphangitic spread will start abx pt agrees to stay for further eval 09/28/17 14:48 PMD refers to [facility] - microblog sent to [facility] 09/28/17 15:13 case discussed with [facility] accepts pt to obs <Светлана Stein - Last Filed: 09/28/17 15:14> *DC/Admit/Observation/Transfer - Attestations Scribe Attestion: 09/28/17 11:56 Documentation prepared by Stormy Klein, acting as bacteriologist medical for Светлана Stein DO. <Stormy Klein - Last Filed: 09/28/17 11:55> - Discharge Dispostion Decision to Admit order: Yes - Attestations Physician Attestion: 09/28/17 15:14 I, Dr. Светлана Stein DO, attest that this document has been prepared under my direction and personally reviewed by me in its entirety. I further attest, that it accurately reflects all work, treatment, procedures and medical decision -making performed by me. <Светлана Stein - Last Filed: 09/28/17 15:14> Diagnosis at time of Disposition: Cellulitis - Discharge Dispostion Condition at time of disposition: Fair - Referrals Referrals: Jess Edwards MD [Primary Care Provider] - - Patient Instructions - Post Discharge Activity
[2017-09-28 12:22] LABS: BASO % 0.8 % (0-2.0); HEMATOCRIT 39.1 % (35.4-49); HEMOGLOBIN 13.3 GM/dL (11.7-16.9); LYMPH % 13.8 % (8-40); MCH 32.1 pg (25.7-33.7); MEAN CELL VOLUME 94.5 fl (80-96); MEAN PLT VOLUME 8.3 fl (7.5-11.1); MONO % 5.7 % (3.8-10.2); NEUT % 77.7 % (42.8-82.8); PLATELET COUNT 228 K/MM3 (134-434); RBC 4.14 M/mm3 (4.00-5.60); RDW 14.6 % (11.9-15.9); WHITE BLOOD COUNT 6.7 K/mm3 (4.0-10.0)
[2017-09-28 12:35] LABS: INR 0.99 (0.82-1.09); PROTHROMBIN TIME (PATIENT) 11.2 SEC (9.7-13.0)
[2017-09-28 12:38] LABS: ACTIVATED PTT 28.2 SECONDS (26.9-34.4)
[2017-09-28 12:46] LABS: ALBUMIN 3.7 g/dl (3.4-5.0); ANION GAP 6 (8-16); BLOOD UREA NITROGEN 17 mg/dL (7-18); CALCIUM 8.8 mg/dL (8.5-10.1); CHLORIDE 103 mmol/L (98-107); CO2 28 mmol/L (21-32); CREATININE 1.5 mg/dL (0.7-1.3); GLUCOSE,RANDOM 120 mg/dL (74-106); POTASSIUM 4.2 mmol/L (3.5-5.1); SGOT/AST 16 U/L (15-37); SODIUM 137 mmol/L (136-145)
[2017-09-28 12:49] LABS: ALK PHOS 108 U/L (45-117); BILIRUBIN,TOTAL 0.4 mg/dL (0.2-1.0); SGPT/ALT 16 U/L (12-78); TOT PROT 6.7 g/dl (6.4-8.2)
[2017-09-28] MEDS ORDERED: VANCOMYCIN 1,000 MG in DEXTROSE 5%-WATER - 250 ML IVPB ONE (14:41)
[2017-09-28] MEDS ORDERED: VANCOMYCIN 1 GRAM (PRE-DOCKED) 1,000 MG/250 ML BAG IVPB ONE (14:44)
--- NOTE | 2017-09-28 16:26 | HP ---
CHIEF COMPLAINT: pain in RUE x4 days, redness in UE x1 day PCP: Dr Guevara HISTORY OF PRESENT ILLNESS: Pt is a 72 yo M with signif PMHx of prostate cancer on radiotherapy (had 18th session today), depression, HTN, recovering alcoholic (abstinence x35yrs), seizure disorder, GERD, ADHD, PACs (asymptomatic) presenting with pain in RUE x4 days, redness in UE x1 day. The pain is 2/10, burning, non radiating pain over the RUE from the tera-medial aspect of the arm to the axilla. No tingling, no loss of function. No hx of trauma or intravenous drug use. On 09/08 pt was discharged from [facility] for AMS following seizure during which he forcibly pulled out an intravenous cannular located in the posterior medial aspect of his arm. No other swellings in any other part of the body, no rashes or bug bites. No fevers, no chills, no nausea or vomiting, no SOB, or cough, no dysuria, no change in bowel habits. Pt is an everyday vaper and smoker (number per day unknown). ER course was notable for: (1) Duplex US of RUE-negative for DVT (2) Vancomycin given (3) Cr-1.5 Recent Travel: PAST MEDICAL HISTORY: prostate cancer on radiotherapy (had 18th session today), depression, recovering alcoholic (abstinence x35yrs), seizure disorder, GERD, ADHD, PAC (asymptomatic). 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 maternal aunt- at 47yrs Mother -Alzheimers Father-Heart disease following arrythmias- at 63yrs Allergies Penicillins Allergy (Intermediate, Verified 09/28/17 10:56) Rash HOME MEDICATIONS: Home Medications Medication Instructions Recorded Aspirin [ASA -] 81 mg PO DAILY 04/29/14 Buspirone HCl [Buspar -] 15 mg PO BID 04/29/14 Sertraline HCl [Zoloft -] 75 mg PO DAILY 04/29/14 Lamotrigine [LaMICtal -] 200 mg PO BID 11/21/15 Ramipril 10 mg PO DAILY 11/21/15 Methylphenidate HCl [Ritalin LA] 40 mg PO DAILY 09/04/17 REVIEW OF SYSTEMS CONSTITUTIONAL: Absent: fever, chills, diaphoresis, generalized weakness, malaise, loss of appetite, weight change HEENT: Absent: rhinorrhea, nasal congestion, throat pain, throat swelling, difficulty swallowing, mouth swelling, ear pain, eye pain, visual changes CARDIOVASCULAR: Absent: chest pain, syncope, palpitations, irregular heart rate, lightheadedness , peripheral edema RESPIRATORY: Absent: cough, shortness of breath, dyspnea with exertion, orthopnea, wheezing, stridor, hemoptysis GASTROINTESTINAL: Absent: abdominal pain, abdominal distension, nausea, vomiting, diarrhea, constipation, melena, hematochezia GENITOURINARY: Absent: dysuria, frequency, urgency, hesitancy, hematuria, flank pain, genital pain MUSCULOSKELETAL: Absent: myalgia, arthralgia, joint swelling, back pain, neck pain SKIN: Absent: rash, itching, pallor HEMATOLOGIC/IMMUNOLOGIC: Absent: easy bleeding, easy bruising, lymphadenopathy, frequent infections ENDOCRINE: Absent: unexplained weight gain, unexplained weight loss, heat intolerance, cold intolerance NEUROLOGIC: Absent: headache, focal weakness or paresthesias, dizziness, unsteady gait, seizure, mental status changes, bladder or bowel incontinence PSYCHIATRIC: Absent: anxiety, depression, suicidal or homicidal ideation, hallucinations. PHYSICAL EXAMINATION Vital Signs - 24 hr 09/28/17 09/28/17 10:56 15:05 Temperature 97.6 F 98.2 F Pulse Rate 65 Pulse Rate [ 62 Left Radial] Respiratory 18 16 Rate Blood Pressure 131/81 Blood Pressure 122/59 [Left Arm] O2 Sat by Pulse 99 99 Oximetry (%) GENERAL: Awake, alert, and fully oriented, in no acute distress. HEAD: Normal with no signs of trauma. EYES: Pupils equal, round and reactive to light, extraocular movements intact, sclera anicteric, conjunctiva clear. No lid lag. EARS, NOSE, THROAT: Ears normal, nares patent, oropharynx clear without exudates. Moist mucous membranes. NECK: Normal range of motion, supple without cervical or axillary lymphadenopathy, JVD, or masses. LUNGS: Breath sounds equal, clear to auscultation bilaterally. HEART: Regular rate and rhythm, normal S1 and S2 without murmur ABDOMEN: Soft, nontender, not distended, normoactive bowel sounds MUSCULOSKELETAL: Normal range of motion at all joints. No bony deformities or tenderness. No CVA tenderness. UPPER EXTREMITIES: RUE hyperemic streak along the basilic vein from anterior- medial aspect of arm to axilla. No peripheral edema. LOWER EXTREMITIES: 2+ pulses, warm, well-perfused. No calf tenderness. No peripheral edema. NEUROLOGICAL: AAOX3. Cranial nerves II-XII intact. Normal speech. PSYCHIATRIC: Cooperative. Good eye contact. Appropriate mood and affect. SKIN: Warm, dry, normal turgor, no rashes or lesions noted, normal capillary refill. Laboratory Results - last 24 hr 09/28/17 09/28/17 09/28/17 12:00 12:00 12:00 WBC 6.7 RBC 4.14 Hgb 13.3 Hct 39.1 MCV 94.5 MCH 32.1 MCHC 34.0 RDW 14.6 Plt Count 228 MPV 8.3 Neutrophils % 77.7 Lymphocytes % 13.8 D Monocytes % 5.7 Eosinophils % 2.0 Basophils % 0.8 PT with INR 11.20 INR 0.99 PTT (Actin FS) 28.2 Sodium 137 Potassium 4.2 Chloride 103 Carbon Dioxide 28 Anion Gap 6 L BUN 17 Creatinine 1.5 H Creat Clearance w eGFR 45.75 Random Glucose 120 H D Calcium 8.8 Total Bilirubin 0.4 D AST 16 D ALT 16 D Alkaline Phosphatase 108 D Total Protein 6.7 Albumin 3.7 Ambulatory Orders Aspirin [ASA -] 81 mg PO DAILY 04/29/14 Buspirone HCl [Buspar -] 15 mg PO BID 04/29/14 Sertraline HCl [Zoloft -] 75 mg PO DAILY 04/29/14 Lamotrigine [LaMICtal -] 200 mg PO BID 11/21/15 Ramipril 10 mg PO DAILY 11/21/15 Methylphenidate HCl [Ritalin LA] 40 mg PO DAILY 09/04/17 ASSESSMENT/PLAN: Pt is a 72 yo M with signif PMHx of prostate cancer on radiotherapy (had 18th session today), depression, recovering alcoholic (abstinence x35yrs), HTN, seizure disorder, GERD, ADHD, PACs (asymptomatic) presenting with pain in RUE x4 days, redness in UE x1 day. RUE pain and redness: Could be a phlebitis R/O cellulitis, considering hx of previous iv line forcibly pulled out and immunosuppression with cancer and radiotherapy pt may not be able to mount immune response with fever or white count Pt received vancomycin in the ED Considering elevated Cr-1.5, Would continue with Clindamycin iv 300mg Q6H Blood cultures CBC with diff CMP Pain mx with tylenol OBDULIA on CKD: Baseline of patient unclear, was mx for OBDULIA in recent admission Will rehydrate with 1L Normal saline Repeat CMP in am Monitor HTN Patient's ramipril was held in last admission for kidney function, but he continued taking it at home Will put him on norvasc 5mg seizure disorder Resume Lamictal 200mg bid GERD Asymptomatic at this time, not on home PPIs Will hold off PPIs for now ADHD Pt is on home Methylphenidate HCl [Ritalin LA] 40 mg PO DAILY (extended release not available) D/W pharmacy will give 36mg regular Methylphenidate in 2 divided doses Depression Continue home Sertraline 75 mg PO DAILY Recovering alcoholic (abstinence x35yrs) Stable PACs Asymptomatic- benign, 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 - New Patient This patient is new to me today: Yes Date on this admission: 09/28/17 - Critical Care Critical Care patient: No Hospitalist Screening - Colonoscopy Questionnaire Colonoscopy Questionnaire: Colonoscopy Questionnaire - Patient: 50 - 75 years old and never had a screening colonoscopy: Unknown History of colon or rectal polyps, or CA: Unknown History of IBD, Crohn's disease or UC: Unknown History of abdominal radiation therapy as a child: Unknown - Relative: 1 with colon or rectal CA, or polyps at age 60 or younger: Unknown Colon or rectal CA diagnosed at age 45 or younger: Unknown Multiple relatives with colon or rectal CA: Yes (Grandpa and maternal aunt) - Outcome: Screening Result: Positive Screen
[2017-09-28] MEDS ORDERED: SODIUM CHLORIDE 1,000 ML IV STA ×3 (16:27→17:54)
[2017-09-28] MEDS ORDERED: ACETAMINOPHEN 325 MG TABLET (FP) PO PRN (16:27)
[2017-09-28] MEDS ORDERED: RAMIPRIL 5 MG CAPSULE (FP) PO SCH (17:00)
[2017-09-28] MEDS ORDERED: METHYLPHENIDATE HCL 5 MG TABLET PO SCH (17:00)
[2017-09-28] MEDS ORDERED: amLODIPine BESYLATE 5 MG TABLET (FP) PO ONE (17:24)
[2017-09-28 17:32] VITALS: BMI 23.9
--- NOTE | 2017-09-28 17:38 | HP ---
CHIEF COMPLAINT: right arm pain and rash PCP: Dr Guevara HISTORY OF PRESENT ILLNESS: The patient is a 72 year patient with a PMH of prostate cancer, (on radiation Tuesday-Tuesday, diagnosed 2 months ago), seizure disorder, CKD, HTN, depression, ADHD, that presented today complaining of pain in right upper extremity that started 4 days ago and streaking rash that he noticed this morning. He reports mild pain 2/10, from antecubital fossa to axilla. The patient denies injury, insect bites, fever, chills, DVT in the past. He was discharged from [facility] , admitted for AMS and states that he removed IV by himself also on right but posterior forearm. The patient presented with his who states that he his a poor historian and not compliant with home medications. ER course was notable for: (1)Dupplex RUE (2)CBC, CMP: Cr 1.5 (3)Vanco PAST MEDICAL HISTORY: as above PAST SURGICAL HISTORY: hernia repair Social History: Smoking:yes, current smoker, e-cigarettes Alcohol:quit in 80s Drugs: in 60s, Marijuana, Amphetamines Family History: Mother: Alzheimer's, Father: heart disease Allergies Penicillins Allergy (Intermediate, Verified 09/28/17 10:56) Rash HOME MEDICATIONS: Home Medications Medication Instructions Recorded Aspirin [ASA -] 81 mg PO DAILY 04/29/14 Buspirone HCl [Buspar -] 15 mg PO BID 04/29/14 Sertraline HCl [Zoloft -] 75 mg PO DAILY 04/29/14 Lamotrigine [LaMICtal -] 200 mg PO BID 11/21/15 Ramipril 10 mg PO DAILY 11/21/15 Methylphenidate HCl [Ritalin LA] 40 mg PO DAILY 09/04/17 REVIEW OF SYSTEMS CONSTITUTIONAL: Absent: fever, chills, diaphoresis, generalized weakness, malaise, loss of appetite, weight change HEENT: Absent: rhinorrhea, nasal congestion, throat pain, throat swelling, difficulty swallowing, mouth swelling, visual changes CARDIOVASCULAR: Absent: chest pain, syncope, palpitations, irregular heart rate, lightheadedness , peripheral edema RESPIRATORY: Absent: cough, shortness of breath, dyspnea with exertion, orthopnea, wheezing, s GASTROINTESTINAL: Absent: abdominal pain, abdominal distension, nausea, vomiting, diarrhea, constipation, GENITOURINARY: Absent: dysuria, frequency, urgency, hesitancy, hematuria, flank pain, genital pain MUSCULOSKELETAL: Absent: myalgia, arthralgia, joint swelling, back pain, neck pain SKIN: rash Absent: itching, pallor HEMATOLOGIC/IMMUNOLOGIC: Absent: easy bleeding, easy bruising, lymphadenopathy, frequent infections ENDOCRINE: Absent: unexplained weight gain, unexplained weight loss, heat intolerance, cold intolerance NEUROLOGIC: Absent: headache, focal weakness or paresthesias, dizziness, unsteady gait, seizure, mental status changes, bladder or bowel incontinence PSYCHIATRIC: Absent: anxiety, depression PHYSICAL EXAMINATION Vital Signs - 24 hr 09/28/17 09/28/17 10:56 15:05 Temperature 97.6 F 98.2 F Pulse Rate 65 Pulse Rate [ 62 Left Radial] Respiratory 18 16 Rate Blood Pressure 131/81 Blood Pressure 122/59 [Left Arm] O2 Sat by Pulse 99 99 Oximetry (%) GENERAL: Awake, alert, and fully oriented, in no acute distress. HEAD: Normal with no signs of trauma. EYES: Pupils equal, round and reactive to light, extraocular movements intact, sclera anicteric, conjunctiva clear. No lid lag. EARS, NOSE, THROAT: oropharynx clear without exudates. Moist mucous membranes. NECK: Normal range of motion, supple without lymphadenopathy, JVD, or masses. LUNGS: Breath sounds equal, clear to auscultation bilaterally. No wheezes, and no crackles. No accessory muscle use. HEART: Regular rate and rhythm, normal S1 and S2 without murmur, rub or gallop. ABDOMEN: Soft, nontender, not distended, normoactive bowel sounds, no guarding, no rebound, no masses. No hepatomegaly or splenomegaly. MUSCULOSKELETAL: Normal range of motion at all joints. No bony deformities or tenderness. UPPER EXTREMITIES: RUE: rash along basilic vein, mild warmth to touch, no tenderness, no induration, no lymphadenopathy in axilla, no wounds noticed. LUE : no skin rash. LOWER EXTREMITIES: 2+ pulses, warm, well-perfused. No calf tenderness. No peripheral edema. NEUROLOGICAL: No facial asymmetry, no slurred speech, motor 5/5, sensation to light touch intact. PSYCHIATRIC: Cooperative. Good eye contact. Appropriate mood and affect. SKIN: Warm, dry, normal turgor. Laboratory Results - last 24 hr 09/28/17 09/28/17 09/28/17 12:00 12:00 12:00 WBC 6.7 RBC 4.14 Hgb 13.3 Hct 39.1 MCV 94.5 MCH 32.1 MCHC 34.0 RDW 14.6 Plt Count 228 MPV 8.3 Neutrophils % 77.7 Lymphocytes % 13.8 D Monocytes % 5.7 Eosinophils % 2.0 Basophils % 0.8 PT with INR 11.20 INR 0.99 PTT (Actin FS) 28.2 Sodium 137 Potassium 4.2 Chloride 103 Carbon Dioxide 28 Anion Gap 6 L BUN 17 Creatinine 1.5 H Creat Clearance w eGFR 45.75 Random Glucose 120 H D Calcium 8.8 Total Bilirubin 0.4 D AST 16 D ALT 16 D Alkaline Phosphatase 108 D Total Protein 6.7 Albumin 3.7 ASSESSMENT/PLAN: The patient is a 72 year patient with a PMH of prostate cancer, (on radiation Tuesday-Tuesday, diagnosed 2 months ago), seizure disorder, CKD, depression, ADHD , that presented today complaining of pain in right upper extremity that started 4 days ago and streaking rash that he noticed this morning. He reports mild pain 2/10, from antecubital fossa to axilla. Right upper extremity phlebitis: -the patient is immunocompromised due to his malignancy, with a history of IV line that was pulled from his right forearm 3 weeks ago. It possibly contributed to his phlebitis today. No other injury, IV injections, DVT in the past. -Dupplex scan was negative for clot -Vanco 1g IV was given in ED -blood cultures ordered, after abx -will continue Clindamycin 300 mg IV Q6H to cover gram+, including MRSA -will give Tylenol for pain control -continue NS 1 L HTN: -the patient was discharged on Ramipril 10 mg -we will not continue any BP medications since his BP is well controlled CKD stage 3: Cr 1.5, last month 1.4, not meeting criteria for OBDULIA. GFR 45 -will avoid nephrotoxic substances and continue IVF Depression: -continue Sertraline 75 mg qd ADHD: -conrinue Ritalin 40 mg qd Seisures: -continue Lamitrigine Dispo: -obs med surg Full note to follow Problem List - Problem (1) Phlebitis Code(s): I80.9 - PHLEBITIS AND THROMBOPHLEBITIS OF UNSPECIFIED SITE (2) Hypertension Code(s): I10 - ESSENTIAL (PRIMARY) HYPERTENSION (3) GERD (gastroesophageal reflux disease) Code(s): K21.9 - GASTRO-ESOPHAGEAL REFLUX DISEASE WITHOUT ESOPHAGITIS (4) ADHD Code(s): F90.9 - ATTENTION-DEFICIT HYPERACTIVITY DISORDER, UNSPECIFIED TYPE (5) Epilepsy Code(s): G40.909 - EPILEPSY, UNSP, NOT INTRACTABLE, WITHOUT STATUS EPILEPTICUS (6) Seizure Code(s): R56.9 - UNSPECIFIED CONVULSIONS (7) ADHD Code(s): F90.9 - ATTENTION-DEFICIT HYPERACTIVITY DISORDER, UNSPECIFIED TYPE (8) Depression Code(s): F32.9 - MAJOR DEPRESSIVE DISORDER, SINGLE EPISODE, UNSPECIFIED (9) HTN (hypertension) Code(s): I10 - ESSENTIAL (PRIMARY) HYPERTENSION Visit type - Emergency Visit Emergency Visit: Yes ED Registration Date: 09/28/17 Care time: The patient presented to the Emergency Department on the above date and was hospitalized for further evaluation of their emergent condition. - New Patient This patient is new to me today: Yes Date on this admission: 09/28/17 - Critical Care Critical Care patient: No
[2017-09-28] MEDS: ASPIRIN 81 MG CHEWABLE TABLETS PO SCH (17:58)
[2017-09-28] MEDS: SERTRALINE HCL 25 MG TABLET (FP) PO SCH (17:58)
--- NOTE | 2017-09-28 17:59 | PN ---
Teaching Attending Note Name of Resident: Rocío Lockett ATTENDING PHYSICIAN STATEMENT I saw and evaluated the patient. I reviewed the resident's note and discussed the case with the resident. I agree with the resident's findings and plan as documented. SUBJECTIVE:72yo M [facility] prostate ca currently receiving RTx therapy session # 18, CAD, HTN, CKD, seizure and ADHD presented to the ER with pain in the RUE medial aspect x4 days. pain started suddenly and then developed some erythema over the area today which prompted him to see PMD who sent him to the hospital. denies shaving the area, having a pimple or lesion. was recenltly discharge about 3 weeks ago and noted he did have an IV in the same arm which he pulled out himself and was concerned may be the cause. states area is not painful to touch but more on movement. denies CP, SOB, fever, chills, N/V/C/D OBJECTIVE: Last Vital Signs Temp Pulse Resp BP Pulse Ox 97.6 F 60 16 123/60 99 09/28/17 17:31 09/28/17 17:31 09/28/17 17:31 09/28/17 17:31 09/28/17 15:05 General NAD CV S1 S2 RRR no murmur/rub/gallop Lungs CTA B/L no wheezing/rales/rhonchi SKin 1cm streaking up the RUE medial aspect starting in the antecubital area and extending medially up the arm. no warmth/tenderness/fluctuation/cord. no breakage in the skin noted ASSESSMENT AND PLAN: 72yo M [facility] prostate ca currently receiving RTx therapy session #18, CAD, HTN, CKD, seizure and ADHD presented to the ER with pain in the RUE medial aspect x4 days. 1. RUE erythema- medicine observation. phlebitis vs cellulitis. received vanco 1g in the ER. doppler done to r/o DVT. pt being cancer patient currently receiving radiation therapy may not mount fever or leukocytosis. PCN allergy noted. Obtain Blood culture. start clindamycin. erythema area marked to monitor progress. 2. Acute on CKD- baseline Cr 1.3-1.4. possible slight dehydration. will give 1L NS. repeat Cr 3. Seizure- cont home medication 4. HTN- controlled. verify home medications and continue 5. ADHD- cont home medication 6. DVT ppx- hep sq
[2017-09-28] MEDS: CLINDAMYCIN 300 MG PREMIX IVPB 300 MG/50 ML BAG IVPB SCH ×2 (18:53→21:07)
[2017-09-28] MEDS ORDERED: PT OWN MED DRAWER 7, Y5N ONE (20:17)
[2017-09-28] MEDS: lamoTRIgine 100 MG TABLET (FP) PO SCH (21:10)
[2017-09-28] MEDS: METHYLPHENIDATE HCL 5 MG TABLET PO SCH ×2 (21:11→21:17)
[2017-09-28] MEDS: HEPARIN NA (PORCINE) 5,000 UNITS/ML 1ML VIAL SQ SCH (21:11)
[2017-09-28] MEDS: busPIRone HCL 5 MG TABLET PO SCH (22:01)
[2017-09-29] MEDS: CLINDAMYCIN 300 MG PREMIX IVPB 300 MG/50 ML BAG IVPB SCH ×2 (02:05→09:51)
[2017-09-29] MEDS: HEPARIN NA (PORCINE) 5,000 UNITS/ML 1ML VIAL SQ SCH (06:17)
[2017-09-29 07:30] LABS: BASO % 1.2 % (0-2.0); EOS % 3.9 % (0-4.5); HEMATOCRIT 36.2 % (35.4-49); HEMOGLOBIN 12.4 GM/dL (11.7-16.9); LYMPH % 19.7 % (8-40); MCH 32.2 pg (25.7-33.7); MCHC 34.2 g/dl (32.0-35.9); MEAN CELL VOLUME 94.2 fl (80-96); MEAN PLT VOLUME 8.8 fl (7.5-11.1); MONO % 7.7 % (3.8-10.2); NEUT % 67.5 % (42.8-82.8); PLATELET COUNT 203 K/MM3 (134-434); RBC 3.84 M/mm3 (4.00-5.60); RDW 14.9 % (11.9-15.9)
[2017-09-29 07:51] VITALS: TEMP 98.5
[2017-09-29 07:52] LABS: CHLORIDE 110 mmol/L (98-107); POTASSIUM 4.6 mmol/L (3.5-5.1); SODIUM 143 mmol/L (136-145)
[2017-09-29 08:00] LABS: ALBUMIN 3.2 g/dl (3.4-5.0); ALK PHOS 95 U/L (45-117); ANION GAP 5 (8-16); BILIRUBIN,TOTAL 0.4 mg/dL (0.2-1.0); BLOOD UREA NITROGEN 16 mg/dL (7-18); CALCIUM 8.6 mg/dL (8.5-10.1); CO2 28 mmol/L (21-32); CREATININE 1.4 mg/dL (0.7-1.3); GLUCOSE,RANDOM 88 mg/dL (74-106); MAGNESIUM 2.3 mg/dL (1.8-2.4); SGOT/AST 10 U/L (15-37); SGPT/ALT 16 U/L (12-78); TOT PROT 5.7 g/dl (6.4-8.2)
[2017-09-29] MEDS ORDERED: PT OWN MED DRAWER 7, Y5N ONE (09:48)
[2017-09-29] MEDS: SERTRALINE HCL 25 MG TABLET (FP) PO SCH (09:50)
[2017-09-29] MEDS: busPIRone HCL 5 MG TABLET PO SCH (09:50)
[2017-09-29] MEDS: lamoTRIgine 100 MG TABLET (FP) PO SCH (09:50)
[2017-09-29] MEDS: ASPIRIN 81 MG CHEWABLE TABLETS PO SCH (09:51)
[2017-09-29] MEDS: METHYLPHENIDATE HCL 5 MG TABLET PO SCH (09:51)
[2017-09-29] MEDS ORDERED: amLODIPine BESYLATE 5 MG TABLET (FP) PO SCH (10:00)
[2017-09-29 11:20] VITALS: BP 135/70; PULSE 65
--- NOTE | 2017-09-29 12:13 | PN ---
Teaching Attending Note Name of Resident: Rocío Lockett ATTENDING PHYSICIAN STATEMENT I saw and evaluated the patient. I reviewed the resident's note and discussed the case with the resident. I agree with the resident's findings and plan as documented. SUBJECTIVE:asymptomatic at this time. denies CP, SOB, fever, chills, N/V/C/D OBJECTIVE: Last Vital Signs Temp Pulse Resp BP Pulse Ox 98.5 F 65 20 135/70 96 09/29/17 11:00 09/29/17 11:00 09/29/17 11:00 09/29/17 11:00 09/29/17 06:00 General NAD SKin skin is clear and erythema resolved ASSESSMENT AND PLAN: 72yo M wt PMH prostate ca currently receiving RTx therapy session #18, CAD, HTN, CKD, seizure and ADHD presented to the ER with pain in the RUE medial aspect x4 days. 1. RUE erythema-resolved. likely cellulitis as resolved with abx therapy. will convert clinda to po and complete 7 day course. will need to f/u on Bcx tomorrow although will likely be negative since vanco given prior to cx obtained. instructed pt to f/u iwth PMD once completes abx course. 2. Acute on CKD- baseline Cr 1.3-1.4. improved 3. Seizure- cont home medication 4. HTN- controlled. resume ramipril 5. ADHD- cont home medication 6. DVT ppx- hep sq 7. d/c home on clinda
--- NOTE | 2017-09-29 13:08 | DS ---
Physical Exam: SUBJECTIVE: Patient seen and examined. No new c/o. No fevers, or chills, no n/ v. Pain improved, redness resolved. OBJECTIVE: Vital Signs Period Temp Pulse Resp BP Sys/Gong Pulse Ox Last 24 Hr 97.6 F-98.7 F 60-72 16-20 120-135/59-82 96-99 Vital Signs Temp 98.5 F 09/29/17 11:00 Pulse 65 09/29/17 11:00 Resp 20 09/29/17 11:00 BP 135/70 09/29/17 11:00 Pulse Ox 97 09/29/17 12:48 Intake & Output 09/28/17 09/29/17 09/29/17 23:59 11:59 23:59 Intake Total 800 50 550 Balance 800 50 550 Weight 80.059 kg Intake: IV 300 Normal Saline - 1,000 ml 300 @ 1000 mls/hr IV ASDIR STA Rx#:[id number] IVPB 50 50 Oral 300 500 Oral Supplement 200 Other: Voiding Method Toilet Toilet Bowel Movement No Height 1.83 m Body Mass Index (BMI) 23.9 Weight Measurement Method Built in [facility] PHYSICAL EXAM GENERAL: The patient is awake, alert, and fully oriented, in no acute distress. HEAD: Normal with no signs of trauma. EYES: PERRL, extraocular movements intact. ENT: moist mucous membranes. NECK: full range of motion, supple. No cervical adenopathy LUNGS: Breath sounds equal, clear to auscultation bilaterally HEART: Regular rate and rhythm, S1, S2 without murmur. ABDOMEN: Soft, nontender, nondistended, normoactive bowel sounds EXTREMITIES: 2+ pulses, warm, well-perfused, no edema. RUE hyperemia and streaking resolved. Medial R upper arm non tender. NO change in sensation, no limitation of movement. No other swellings noted NEUROLOGICAL: AAOx3. No facial droop, normal tone and 5/5 muscle strenth globally. Normal speech LABS CBC, BMP 09/29/17 06:30 09/29/17 06:30 Laboratory Results - last 24 hr 09/29/17 09/29/17 06:30 06:30 WBC 5.0 RBC 3.84 L Hgb 12.4 Hct 36.2 MCV 94.2 MCH 32.2 MCHC 34.2 RDW 14.9 Plt Count 203 MPV 8.8 Neutrophils % 67.5 Lymphocytes % 19.7 D Monocytes % 7.7 Eosinophils % 3.9 D Basophils % 1.2 Sodium 143 Potassium 4.6 Chloride 110 H Carbon Dioxide 28 Anion Gap 5 L BUN 16 Creatinine 1.4 H Creat Clearance w eGFR 49.54 Random Glucose 88 D Calcium 8.6 Phosphorus 3.0 D Magnesium 2.3 D Total Bilirubin 0.4 AST 10 L D ALT 16 Alkaline Phosphatase 95 Total Protein 5.7 L Albumin 3.2 L HOSPITAL COURSE: Date of Admission:09/28/17 Date of Discharge: 09/29/17 Prehospital course: Pt is a 72 yo M with signif PMHx of prostate cancer on radiotherapy (had 18th session), depression, recovering alcoholic (abstinence x35yrs), HTN, seizure disorder, GERD, ADHD, PACs (asymptomatic) presenting with pain in RUE x4 days, redness in RUE x1 day. RUE pain and redness: Pt was managed for cellulitis, with immunosuppression with cancer and radiotherapy, pt may not be able to mount an immune response with fever or white count. Pt received vancomycin iv 1g in the ED. He continued with Clindamycin iv 300mg Q6H. Blood cultures were drawn, pending cultures for tomorrow. Will call pt back if positive. Pain mx with tylenol. CBC with diff and CMP were wnl except for slightly elevated Cr1.5 compared to his baseline of 1.4. OBDULIA on CKD: Baseline of patient probably 1.4, came in at 1.5 cr. Pt was mx for OBDULIA in recent admission of 09/08. Pt was hydrated with 1L Normal saline and returned to 1.4. HTN Patient's ramipril was held in last admission for kidney function, but he continued taking it at home. We held ramipril overnight with no elevated pressures but consider that pt is at his baseline of 1.4, and so will resume ramipril on discharge. 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 Do not exceed more than 1g in 4hrs or more than 4g/in a 24hr period We are discharging you home to continue the oral antibiotics -Clindamycin 300mg 4 times a day for 7 days We took blood from you to check for infection We are waiting for results of the blood culture If the cultures grow any organism, we will call you and have you come back to the hospital for more treatment Continue your home medications as prescribed, you may resume your ramipril for blood pressure Follow up with your primary doctor in a week's time If you have worsening pain and fevers, or are unable to use your arm despite using tylenol, please return to the emergency room Referrals: Jess Edwards MD [Primary Care Provider] - 1 Week Disposition: HOME - Home Medications Comprehensive Discharge Medication List: Ambulatory Orders Aspirin [ASA -] 81 mg PO DAILY 04/29/14 Buspirone HCl [Buspar -] 15 mg PO BID 04/29/14 Sertraline HCl [Zoloft -] 75 mg PO DAILY 04/29/14 Lamotrigine [LaMICtal -] 200 mg PO BID 11/21/15 Ramipril 10 mg PO DAILY 11/21/15 Methylphenidate HCl [Ritalin LA] 40 mg PO DAILY 09/04/17 Clindamycin [Cleocin -] 300 mg PO Q6HPO #28 capsule 09/29/17 This patient is new to me today: No Emergency Visit: Yes ED Registration Date: 09/28/17 Care time: The patient presented to the Emergency Department on the above date and was hospitalized for further evaluation of their emergent condition. Critical Care patient: No - Discharge Referral Referred to [facility] Med P.C.: No
== END 2017-09-29 12:49 | disposition home or self-care (01) ==
LOC: JER 10:48 → JERBED 15:14 → J6S 16:33
PROVIDERS: ADMIT Internal Medicine; ATTEND Internal Medicine
PROC: 3E03329 Introduction of Other Anti-infective into Peripheral Vein, Percutaneous Approach (ICD-10-PCS; principal; 2017-09-28)
PROC: 3E013GC Introduction of Other Therapeutic Substance into Subcutaneous Tissue, Percutaneous Approach (ICD-10-PCS; 2017-09-28)
PROC: 3E0337Z Introduction of Electrolytic and Water Balance Substance into Peripheral Vein, Percutaneous Approach (ICD-10-PCS; 2017-09-28)
DX: L03.113 Cellulitis of right upper limb (principal); I12.9 Hypertensive chronic kidney disease with stage 1 through stage 4 chronic kidney disease, or unspecified chronic kidney disease; N18.3 Chronic kidney disease, stage 3 (moderate); N17.9 Acute kidney failure, unspecified; C61 Malignant neoplasm of prostate; Z92.3 Personal history of irradiation; F32.9 Major depressive disorder, single episode, unspecified; G40.909 Epilepsy, unspecified, not intractable, without status epilepticus; F03.90 Unspecified dementia, unspecified severity, without behavioral disturbance, psychotic disturbance, mood disturbance, and anxiety; Z87.891 Personal history of nicotine dependence; K21.9 Gastro-esophageal reflux disease without esophagitis; Z88.0 Allergy status to penicillin; Z79.82 Long term (current) use of aspirin; F90.9 Attention-deficit hyperactivity disorder, unspecified type; I49.1 Atrial premature depolarization; F10.21 Alcohol dependence, in remission
CPT/HCPCS: 36415; 80053; 83735; 84100; 85025; 85610; 85730; 87040; 93971; 96361; 96365; 96372; 96375; 99285-25; G0378; J1644; J7030

== ENCOUNTER 2017-11-05 13:53 | Inpatient (IN) | payer OTHER, MEDICARE ==
[2017-11-05] MEDS: SODIUM CHLORIDE 1,000 ML IV SCH (14:30)
--- NOTE | 2017-11-05 14:37 | PDOC ---
History of Present Illness - General Chief Complaint: Altered Mental Status Stated Complaint: Altered Mental Status Time Seen by Provider: 11/05/17 14:20 History Source: Patient, Spouse Exam Limitations: No Limitations - History of Present Illness Initial Comments: 11/05/17 14:31 This is a 72 YOM with h/o prostate CA (undergoing tx), seizures c/b prolonged postictal phases (on lamotrigine), hearing impairment (uses hearing aids), HTN, HLD, CAD, and rhabdomyolysis c/b OBDULIA who p/w difficulty speaking and altered mental status since about 12:30 pm today. The patient himself seems to be having word-finding difficulty and his provides the bulk if his medical history. The notes that she last saw him acting normally at 12:30 and shortly after that they sat down to lunch and he was having mild difficulty speaking. She initially thought that his hearing aid was dislodged, but this worsened progressively and she later noticed that he seemed to be confused. She denies that he had any obvious focal weakness, pain, seizures/convulsions, or loss of consciousness. She notes similar prior episodes of this difficulty speaking and confusion, but the prior episodes all culminated in a grand mal seizure with subsequent prolonged postictal phase. During the course of the H&P the patient's difficulty speaking improves and he is eventually able to tell us that he has no headaches, chest pain, SOB, dizziness, numbness, or tingling. Past History - Past Medical History Allergies/Adverse Reactions: Allergies Allergy/AdvReac Type Severity Reaction Status Date / Time Penicillins Allergy Intermediate Rash Verified 11/05/17 14:00 Home Medications: Ambulatory Orders Aspirin [ASA -] 81 mg PO DAILY 04/29/14 Buspirone HCl [Buspar -] 15 mg PO BID 04/29/14 Sertraline HCl [Zoloft -] 75 mg PO DAILY 04/29/14 Lamotrigine [LaMICtal -] 200 mg PO BID 11/21/15 Ramipril 10 mg PO DAILY 11/21/15 Methylphenidate HCl [Ritalin LA] 40 mg PO DAILY 09/04/17 Acyclovir [Zovirax -] 200 mg PO BID 11/05/17 levETIRAcetam [Keppra -] 500 mg PO BID #56 tablet 11/07/17 Anemia: No Asthma: No Cancer: Yes (radiation for prostate ? 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 PRESENTLY IN A) Diabetes: (STUDY REGARDING MEMORY ISSUES @ [facility]) GI Disorders: Yes (GERD) Disorders: No HTN: Yes Hypercholesterolemia: No Liver Disease: No Psychiatric Problems: Yes (DEPRESSION) Seizures: Yes (SEIZURE DISORDER-ON LAMICTAL NOW-LAST SEIZURE 04/2014) Thyroid Disease: No - Surgical History Abdominal Surgery: Yes (hernia sx at age 23) Appendectomy: No Cardiac Surgery: No Cholecystectomy: No Lung Surgery: No Neurologic Surgery: No Orthopedic Surgery: No - Immunization History Immunization Up to Date: Yes - Suicide/Smoking/Psychosocial Hx Smoking History: Never smoked Have you smoked in the past 12 months: Yes Number of Cigarettes Smoked Daily: 15 If you are a former smoker, when did you quit?: SMOKES E-CIGARETTES Information on smoking cessation initiated: No 'Breaking Loose' booklet given: 09/04/17 Hx Alcohol Use: Yes (RECOVERING ALCOHOLIC) Drug/Substance Use Hx: No Substance Use Type: None Hx Substance Use Treatment: Yes (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 as per ) Review of Systems - Review of Systems Able to Perform ROS?: Yes Constitutional: No: Chills, Fever, Unexplained wgt Loss HEENTM: No: Nose Congestion, Throat Pain Respiratory: No: Cough, Shortness of Breath Cardiac (ROS): No: Chest Pain, Palpitations ABD/GI: No: Constipated, Diarrhea, Nausea, Vomiting : No: Burning, Dysuria Musculoskeletal: No: Back Pain, Neck Pain Integumentary: No: Bruising, Rash Neurological: Yes: Other (difficulty speaking). No: Headache, Numbness, Tingling, Weakness, Unsteady Gait, Ataxia, Dizziness Endocrine: No: Unexplained Weight Gain, Unexplained Weight Loss *Physical Exam - Vital Signs Last Vital Signs Temp Pulse Resp BP Pulse Ox 98.1 F 69 16 147/75 98 11/05/17 14:01 11/05/17 14:01 11/05/17 14:01 11/05/17 14:01 11/05/17 14:01 - Physical Exam General Appearance: Yes: Nourished, Appropriately Dressed, Other (very pleasant slightly confused appearing older adult male who appears younger than his stated age, initially having significant). No: Apparent Distress HEENT: positive: EOMI, MARIO, Normal ENT Inspection, Normal Voice, Hearing Grossly Normal. negative: Scleral Icterus (R), Scleral Icterus (L), Nasal Congestion Neck: positive: Trachea midline, Supple. negative: Tender, Rigid Respiratory/Chest: positive: Lungs Clear, Normal Breath Sounds. negative: Respiratory Distress, Crackles, Rhonchi, Stridor, Wheezing Cardiovascular: positive: Regular Rhythm, Regular Rate, S1, S2. negative: Edema , JVD, Murmur Gastrointestinal/Abdominal: positive: Normal Bowel Sounds, Flat, Soft. negative : Tender, Organomegaly, Pulsatile Mass, Guarding Musculoskeletal: positive: Normal Inspection. negative: Decreased Range of Motion, Vertebral Tenderness Extremity: positive: Normal Capillary Refill, Normal Inspection, Normal Range of Motion. negative: Tender, Cyanosis Integumentary: positive: Normal Color, Dry, Warm. negative: Erythema, Rash, Bruising Neurologic: positive: wringer operator II-XII NML intact, Alert, Normal Mood/Affect, Normal Response, Motor Strength 5/5, Other (initially has some word-finding difficulty but no slurring, normal gait, normal [id number], normal noty-nc-vdeg, no drift, NIH is 2). negative: EOM Palsy, Facial Droop, Numbness, Sensory Deficit , Finger to Nose, Confused, Disoriented Heart Score/ECG Review #1 NSR, rate of 66, normal axis and intervals, no ischemic changes ED Treatment Course - LABORATORY CBC & Chemistry Diagram: 11/07/17 05:30 11/07/17 05:30 Medical Decision Making - Critical Care Time Total Critical Care Time (minutes): 45 Critical Care Statement: The care of this patient involved high complexity decision making to prevent further life threatening deterioration of the patient 's condition and/or to evaluate & treat vital organ system(s) failure or risk of failure. - Medical Decision Making 11/05/17 14:51 Adult Pt p/w apparent expressive aphasia similar to prior episodes which were associated with seizures. Initial Vital Signs Temp Pulse Resp BP Pulse Ox 98.1 F 69 16 147/75 98 11/05/17 14:01 11/05/17 14:01 11/05/17 14:01 11/05/17 14:01 11/05/17 14:01 Exam: NIH is 1, alert, oriented, pleasant, normal heart, lungs, and abdomen, DDX IBNLT: Transient global amnesia, structural (e.g. epilepsy, brain tumor, CVA /TIA, NPH, CJD, ACS, PE, Reymundo disease), infectious (e.g. UTI, PNA, bronchitis , cellulitis, meningitis, neurosyphilis, HIV-associated dementia), VS abnormalities (e.g. fever, hypertensive emergency), toxic-metabolic (e.g. medications, drugs e.g. serotonin syndrome/neuroleptic malignant syndrome or street drugs, electrolytes, hypothyroid, B12 deficiency), psychiatric (e.g. delirium, dementia, psychosis), TTP (HUS with AMS, fever, poss seizure), etc. W/U ordered: CBCD CMP Mg Phos Troponin CK CKMB UA UCx EKG CXR HCT WO contrast TX ordered: IVF EKG: Reviewed. CXR: NADP Laboratory Tests 11/05/17 11/05/17 11/05/17 14:26 14:26 14:26 WBC 6.5 RBC 4.28 Hgb 13.5 Hct 40.1 MCV 93.6 MCH 31.6 MCHC 33.7 RDW 14.9 Plt Count 210 MPV 9.1 Absolute Neuts (auto) 4.9 Neutrophils % 75.8 Lymphocytes % 12.2 D Monocytes % 8.6 Eosinophils % 2.3 Basophils % 1.1 Nucleated RBC % 0 PT with INR 11.10 INR 0.98 Sodium Potassium Chloride Carbon Dioxide Anion Gap BUN Creatinine Creat Clearance w eGFR Random Glucose Calcium Total Bilirubin AST ALT Alkaline Phosphatase Creatine Kinase Troponin I Total Protein Albumin Triglycerides Cholesterol Total LDL Cholesterol HDL Cholesterol Urine Color Yellow Urine Appearance Clear Urine pH 6.0 Ur Specific [place] 1.021 Urine Protein Negative Urine Glucose (UA) Negative Urine Ketones Negative Urine Blood 1+ H Urine Nitrite Negative Urine Bilirubin Negative Urine Urobilinogen Negative Ur Leukocyte Esterase 1+ H Urine WBC (Auto) 24 Urine RBC (Auto) 4 Hyaline Casts 13 Urine Mucus Rare Blood Type Antibody Screen 11/05/17 11/05/17 14:26 14:26 WBC RBC Hgb Hct MCV MCH MCHC RDW Plt Count MPV Absolute Neuts (auto) Neutrophils % Lymphocytes % Monocytes % Eosinophils % Basophils % Nucleated RBC % PT with INR INR Sodium 142 Potassium 4.6 Chloride 108 H Carbon Dioxide 26 Anion Gap 8 BUN 20 H Creatinine 1.4 H Creat Clearance w eGFR 49.54 Random Glucose 97 Calcium 9.1 Total Bilirubin 0.3 AST 18 D ALT 21 D Alkaline Phosphatase 94 Creatine Kinase 113 Troponin I < 0.02 D Total Protein 6.8 Albumin 3.6 Triglycerides 178 H D Cholesterol 182 Total LDL Cholesterol 101 H HDL Cholesterol 60 Urine Color Urine Appearance Urine pH Ur Specific [place] Urine Protein Urine Glucose (UA) Urine Ketones Urine Blood Urine Nitrite Urine Bilirubin Urine Urobilinogen Ur Leukocyte Esterase Urine WBC (Auto) Urine RBC (Auto) Hyaline Casts Urine Mucus Blood Type O POSITIVE Antibody Screen Negative Head CT: NADP Vital Signs Temperature 97.4 F L 11/05/17 16:05 Pulse Rate 64 11/05/17 16:33 Respiratory Rate 16 11/05/17 16:33 Blood Pressure 146/72 11/05/17 16:33 O2 Sat by Pulse Oximetry (%) 100 11/05/17 16:33 Reassessment: Patient continues to have waxing and waning staring spells and word finding. Spoke with Dr. Garcia and placed consult order. The patient does not appear to be seizing or in non-convulsive status epilepticus; will not tx for sz at this time. Per Dr. Garcia's recommendations will give 324 ASA and let blood pressures run 160-180 systolic. This should help cerebral perfusion if it is indeed a perfusion issue. He will need MRI and further stroke workup. Patient to be admitted given continued expressive aphasia, confusion, altered mental status. They are unsafe for discharge at this time. They require further hospital observation, workup, and treatment. Microblog sent to [facility] for admission. Spoke with Celio, in agreement Pt to be admitted to [facility]. Decision to Admit order placed to covering attending Dr. Harrington. 11/07/17 23:43 *DC/Admit/Observation/Transfer Diagnosis at time of Disposition: OBDULIA (acute kidney injury), Word finding difficulty Altered mental status Qualifiers: Altered mental status type: unspecified Qualified Code(s): R41.82 - Altered mental status, unspecified - Discharge Dispostion Condition at time of disposition: Guarded Decision to Admit order: Yes - Prescriptions - Referrals - Patient Instructions - Post Discharge Activity NIH Stroke Scale - Last Known Well Date/Time & Onset Date Last Known Well: 11/05/17 Time Last Known Well: 12:30 - Initial Evaluation Level of consciousness: Alert Ask patient the month and their age: Answers both correctly Ask patient to open & close eyes; make fist and let go: Obeys both correctly Best gaze (horizontal eye movement): Normal Visual field testing: No visual field loss Facial paresis (Show teeth/raise eyebrows/close eyes tight): Normal symmetrical movement Motor Function: Left Arm: Normal Motor Function: Right Arm: Normal (extends arm 90 (or 45) degrees for 10 seconds without drift Motor Function: Left Leg: Normal (extends leg 30 degrees for 5 seconds without drift) Motor Function: Right Leg: Normal (extends leg 30 degrees for 5 seconds without drift) Limb Ataxia: No ataxia Sensory(Use pinprick test arms,legs,trunk,face/side to side): Normal Best language (Describe picture, name items, read sentences): Mild to moderate aphasia Dysarthria (read several words): Normal articulation Extinction and Inattention: No abnormality - Total Score NIH Stroke Scale Score: 1
--- NOTE | 2017-11-05 14:39 | PDOC ---
Attending Attestation - Resident Resident Name: Carlota Wong - ED Attending Attestation I have performed the following: I have examined & evaluated the patient, The case was reviewed & discussed with the resident, I agree w/resident's findings & plan, Exceptions are as noted - HPI HPI: 11/05/17 14:40 72 M with h/o prostate cancer on radiotherapy, depression, HTN, seizure disorder , GERD, ADHD, presenting with altered mental status. states that pt was in [facility] until approximately 12:30. They were having lunch when pt suddenly stopped responding to his . She states that she was talking to him, and his responses were very delayed. initially thought he was having an aura, as he sometimes has delayed responses prior to his seizures. However, pt did not seize. states that he has never had an episode like this before. She denies seeing any slurred speech. Pt at this time AnOx2, oriented only to person and place. Denies any complaints but admits to feeling out of sorts. - Physicial Exam PE: 11/05/17 14:47 "GENERAL: Awake, alert, in no acute distress. HEAD: No signs of trauma EYES: PERRLA, EOMI, sclera anicteric, conjunctiva clear ENT: Auricles normal inspection, hearing grossly normal, nares patent, oropharynx clear without exudates. Moist mucosa NECK: Nontender, no stepoffs, Normal ROM, supple, no lymphadenopathy, JVD, or masses LUNGS: Breath sounds equal, clear to auscultation bilaterally. No wheezes, and no crackles HEART: Regular rate and rhythm, normal S1 and S2, no murmurs, rubs or gallops ABDOMEN: Soft, nontender, normoactive bowel sounds. No guarding, no rebound. No masses EXTREMITIES: Normal range of motion, no edema. No clubbing or cyanosis. No cords, erythema, or tenderness NEUROLOGICAL: Cranial nerves II through XII intact. 5/5 strength and sensation in all extremities, Normal speech, normal gait, normal cerebellar function SKIN: Warm, Dry, normal turgor, no rashes or lesions noted. " - Critical Care Time Total Critical Care Time: 60 Critical Care Statement: The care of this patient involved high complexity decision making to prevent further life threatening deterioration of the patient 's condition and/or to evaluate & treat vital organ system(s) failure or risk of failure. - Medical Decision Making 11/05/17 14:49 72 M with sudden onset confusion. Pt with difficulty recalling date, as well as no recollection of recent events. No other focal neuro deficits on exam. Ddx includes CVA/TIA, metastatic brain lesion from primary prostate CA, ICH, or TGA. - Labs - CT head - Neuro consult 11/05/17 15:12 CT head negative. Pt reassessed and is already exhibiting improvement in his memory. Continues to have an otherwise normal neuro exam. Will defer tPA at this time as pt has low NIHSS and is already improving. 11/05/17 17:30 Pt admitted to hospitalist for stroke work up NIH Stroke Scale - Last Known Well Date/Time & Onset Date Last Known Well: 11/05/17 Time Last Known Well: 12:30 - Initial Evaluation Level of consciousness: Alert Ask patient the month and their age: Both incorrect Ask patient to open & close eyes; make fist and let go: Obeys both correctly Best gaze (horizontal eye movement): Normal Visual field testing: No visual field loss Facial paresis (Show teeth/raise eyebrows/close eyes tight): Normal symmetrical movement Motor Function: Left Arm: Normal Motor Function: Right Arm: Normal (extends arm 90 (or 45) degrees for 10 seconds without drift Motor Function: Left Leg: Normal (extends leg 30 degrees for 5 seconds without drift) Motor Function: Right Leg: Normal (extends leg 30 degrees for 5 seconds without drift) Limb Ataxia: No ataxia Sensory(Use pinprick test arms,legs,trunk,face/side to side): Normal Best language (Describe picture, name items, read sentences): No Aphasia Dysarthria (read several words): Normal articulation Extinction and Inattention: No abnormality - Total Score NIH Stroke Scale Score: 2
[2017-11-05 15:08] LABS: URINE APPEARANCE CLEAR; URINE BILIRUBIN NEGATIVE (<2.0 mg/dL); URINE COLOR YELLOW; URINE GLUCOSE (UA) NEGATIVE (NEGATIVE); URINE KETONE NEGATIVE (NEGATIVE); URINE NITRITE NEGATIVE (NEGATIVE); URINE PROTEIN NEGATIVE (NEGATIVE); URINE UROBILINOGEN NEGATIVE mg/dL (0.2-1.0)
[2017-11-05 15:09] LABS: BASO % 1.1 % (0-2.0); EOS % 2.3 % (0-4.5); HEMATOCRIT 40.1 % (35.4-49); HEMOGLOBIN 13.5 GM/dL (11.7-16.9); LYMPH % 12.2 % (8-40); MCH 31.6 pg (25.7-33.7); MCHC 33.7 g/dl (32.0-35.9); MEAN CELL VOLUME 93.6 fl (80-96); MEAN PLT VOLUME 9.1 fl (7.5-11.1); MONO % 8.6 % (3.8-10.2); NEUT % 75.8 % (42.8-82.8); PLATELET COUNT 210 K/MM3 (134-434); RBC 4.28 M/mm3 (4.00-5.60); RDW 14.9 % (11.9-15.9); WHITE BLOOD COUNT 6.5 K/mm3 (4.0-10.0)
[2017-11-05 15:10] LABS: URINE LEUK ESTERASE 1+ (NEGATIVE)
[2017-11-05 15:14] LABS: URINE HYALINE CAST 13 /lpf; URINE MUCUS RARE
[2017-11-05 15:21] LABS: INR 0.98 (0.82-1.09); PROTHROMBIN TIME (PATIENT) 11.1 SEC (9.7-13.0)
[2017-11-05] MEDS ORDERED: ASPIRIN 325 MG TABLET PO ONE (15:28)
[2017-11-05 15:32] LABS: ALBUMIN 3.6 g/dl (3.4-5.0); ALK PHOS 94 U/L (45-117); ANION GAP 8 (8-16); BILIRUBIN,TOTAL 0.3 mg/dL (0.2-1.0); BLOOD UREA NITROGEN 20 mg/dL (7-18); CALCIUM 9.1 mg/dL (8.5-10.1); CHLORIDE 108 mmol/L (98-107); CHOLESTEROL 182 mg/dL (50-200); CO2 26 mmol/L (21-32); CREATININE 1.4 mg/dL (0.7-1.3); GLUCOSE,RANDOM 97 mg/dL (74-106); HDL CHOLESTEROL 60 mg/dL (40-60); POTASSIUM 4.6 mmol/L (3.5-5.1); SGOT/AST 18 U/L (15-37); SGPT/ALT 21 U/L (12-78); SODIUM 142 mmol/L (136-145); TOT PROT 6.8 g/dl (6.4-8.2); TRIGLYCERIDES 178 mg/dL (35-160)
[2017-11-05] MEDS ORDERED: ASPIRIN 325 MG TABLET ONE (15:35)
[2017-11-05] MEDS ORDERED: levETIRAcetam 500 MG/5 ML INJECTION VIAL IVPB ONE ×2 (17:29→17:30)
--- NOTE | 2017-11-05 17:40 | HP ---
CHIEF COMPLAINT: confusion PCP: Dr. Guevara HISTORY OF PRESENT ILLNESS: This is a 72 year old male with a history of epileptic seizures, hx of prostate CA s/p radiotherapy who presents with due to altered mental status. at bedside giving history. Patient does not remember his symptoms or how he came to the hospital. As per , she noticed around 12:30 this afternoon, that her was standing in bedroom, leaning, holding on to railing, staring off. This episode was less than five minuets. They then drove to the ER , she noticed some improvement, although still confused, not remembering episode and starring off. She denies any witnessed physical trauma, head injury , tongue biting, incontinence, cp, sob, n, v. Last seizure episode was in July 2107. As per seizure are happening more frequently, the last two were three months apart and they are usually just every year. Episodes consist of tongue biting, bowel incontinence, and bilateral arm clenching, which did not happen during this episode. SHe does states his aura last for about one hour and consists of starring. ER course was notable for: (1)Head CT negative for acute pathology Recent Travel: no PAST MEDICAL HISTORY: Prostate CA, HTN, depression, GERD, ADHD, Recovering alcoholic ; quit 35yrs ago ; seizure PAST SURGICAL HISTORY: Social History: Smoking:no Alcohol:previous hx quit 35yrs ago Drugs: none Family History: Allergies Penicillins Allergy (Intermediate, Verified 11/05/17 14:00) Rash HOME MEDICATIONS: Home Medications Medication Instructions Recorded Aspirin [ASA -] 81 mg PO DAILY 04/29/14 Buspirone HCl [Buspar -] 15 mg PO BID 04/29/14 Sertraline HCl [Zoloft -] 75 mg PO DAILY 04/29/14 Lamotrigine [LaMICtal -] 200 mg PO BID 11/21/15 Ramipril 10 mg PO DAILY 11/21/15 Methylphenidate HCl [Ritalin LA] 40 mg PO DAILY 09/04/17 PHYSICAL EXAMINATION Vital Signs - 24 hr 11/05/17 11/05/17 11/05/17 14:01 14:55 15:12 Temperature 98.1 F 98.0 F Pulse Rate 69 Pulse Rate [ 68 68 Left Apical] Respiratory 16 16 16 Rate Blood Pressure 147/75 Blood Pressure 150/79 137/85 [Right Arm] O2 Sat by Pulse 98 100 98 Oximetry (%) 11/05/17 11/05/17 16:05 16:33 Temperature 97.4 F L Pulse Rate Pulse Rate [ 66 64 Left Apical] Respiratory 16 16 Rate Blood Pressure Blood Pressure 138/70 146/72 [Right Arm] O2 Sat by Pulse 98 100 Oximetry (%) GENERAL: Awake, starring, not making eye contact; does respond to commands; slow to react HEAD: Normal with no signs of trauma. EYES: Pupils un equal L>R, round and reactive to light, extraocular movements intact, sclera anicteric, conjunctiva clear. No lid lag. THROAT: oropharynx clear without exudates. dry mucous membranes. NECK: Normal range of motion, supple without lymphadenopathy, JVD, or masses. LUNGS: Breath sounds equal, clear to auscultation bilaterally. No wheezes, and no crackles. No accessory muscle use. HEART: Regular rate and rhythm, normal S1 and S2 without murmur, rub or gallop. ABDOMEN: Soft, nontender, not distended, normoactive bowel sounds, no guarding, no rebound, no masses. No hepatomegaly or splenomegaly. MUSCULOSKELETAL: Normal range of motion at all joints. No bony deformities or tenderness. No CVA tenderness. UPPER EXTREMITIES: 2+ pulses, warm, well-perfused. No cyanosis. No clubbing. No peripheral edema. LOWER EXTREMITIES: 2+ pulses, warm, well-perfused. No calf tenderness. No peripheral edema. NEUROLOGICAL: Cranial nerves II-XII intact.speech slowed. gait not observed. no facial droop -sensation intact throughout -strength: UE bilateral deltoid, biceps, triceps, wrist extension and finger abduction 4/5 LE bilateral PSYCHIATRIC: Cooperative. Good eye contact. Appropriate mood and affect. SKIN: Warm, dry, normal turgor, no rashes or lesions noted, normal capillary refill. Laboratory Results - last 24 hr 11/05/17 11/05/17 11/05/17 14:26 14:26 14:26 WBC 6.5 RBC 4.28 Hgb 13.5 Hct 40.1 MCV 93.6 MCH 31.6 MCHC 33.7 RDW 14.9 Plt Count 210 MPV 9.1 Absolute Neuts (auto) 4.9 Neutrophils % 75.8 Lymphocytes % 12.2 D Monocytes % 8.6 Eosinophils % 2.3 Basophils % 1.1 Nucleated RBC % 0 PT with INR 11.10 INR 0.98 Sodium Potassium Chloride Carbon Dioxide Anion Gap BUN Creatinine Creat Clearance w eGFR Random Glucose Calcium Total Bilirubin AST ALT Alkaline Phosphatase Creatine Kinase Troponin I Total Protein Albumin Triglycerides Cholesterol Total LDL Cholesterol HDL Cholesterol Urine Color Yellow Urine Appearance Clear Urine pH 6.0 Ur Specific [place] 1.021 Urine Protein Negative Urine Glucose (UA) Negative Urine Ketones Negative Urine Blood 1+ H Urine Nitrite Negative Urine Bilirubin Negative Urine Urobilinogen Negative Ur Leukocyte Esterase 1+ H Urine WBC (Auto) 24 Urine RBC (Auto) 4 Hyaline Casts 13 Urine Mucus Rare Blood Type Antibody Screen 11/05/17 11/05/17 14:26 14:26 WBC RBC Hgb Hct MCV MCH MCHC RDW Plt Count MPV Absolute Neuts (auto) Neutrophils % Lymphocytes % Monocytes % Eosinophils % Basophils % Nucleated RBC % PT with INR INR Sodium 142 Potassium 4.6 Chloride 108 H Carbon Dioxide 26 Anion Gap 8 BUN 20 H Creatinine 1.4 H Creat Clearance w eGFR 49.54 Random Glucose 97 Calcium 9.1 Total Bilirubin 0.3 AST 18 D ALT 21 D Alkaline Phosphatase 94 Creatine Kinase 113 Troponin I < 0.02 D Total Protein 6.8 Albumin 3.6 Triglycerides 178 H D Cholesterol 182 Total LDL Cholesterol 101 H HDL Cholesterol 60 Urine Color Urine Appearance Urine pH Ur Specific [place] Urine Protein Urine Glucose (UA) Urine Ketones Urine Blood Urine Nitrite Urine Bilirubin Urine Urobilinogen Ur Leukocyte Esterase Urine WBC (Auto) Urine RBC (Auto) Hyaline Casts Urine Mucus Blood Type O POSITIVE Antibody Screen Negative ASSESSMENT/PLAN: This is a 72 year old male with a history of prostate cancer on radiotherapy, finishing last tx on , depression, HTN, hx of myoclonic seizures diagnosed three years ago, who presented with altered mental status. As per seizures are becoming more frequent, last episode was in July 2017, lamotrigine was increased then to 200mg bid. Usual seizure consists of tongue biting, bowel incontinence, myoclonus and are preceded by aura, hour lasting one hour and consists of starring. This episode only consisted of staring, confusion, problems with word finding an amnesia. Differential is another seizure episode, r/o stoke. #Altered mental status: most likely due to "abandoned seizure" vs tia vs acute cva -stroke head CT negative for acute patholog -brain MRI , complete stroke workup including carotid and echo -s/p 325 ASA; will continue 81mg qd -will add atorvastatin 10mg po HS -passed bedside 3oz water swallow eval; -will add anti epileptic to current regimen; laod with keppra 100mg IV; then 500mg po bid -ativan 2mg 1h prn for active seizure -seizure and secondary stroke precautions -allow permissive hypertension; will hold ramipril -physical therapy eval -appreciate neuro input; patient neurologist s Dr. Godinez although in setting of stroke workup, property preservation specialist neurologist was contacted. #HTN: old home rampiril: -allow permissive hypertension in stroke work up eval #Hypertryglyceridemia with slightly elevated LDL: -diet /excerise preparole counseling aide -will start atorvastatin 10mg po HS in setting o stroke work up #Prostate Ca on radiotherpay; will finish last session on #Depression: cont sertraline #on acyclovir for the past 35 yrs due to hx of genital herpes #GERD: cont ranitidine DVT ppl: heparin sq GI ppl ; on ranitidine Monitor on stoke unit # Visit type - Emergency Visit Emergency Visit: Yes Care time: The patient presented to the Emergency Department on the above date and was hospitalized for further evaluation of their emergent condition. - New Patient This patient is new to me today: Yes Date on this admission: 11/05/17 - Critical Care Critical Care patient: No Total Critical Care Time (in minutes): 40 Critical Care Statement: The care of this patient involved high complexity decision making to prevent further life threatening deterioration of the patient 's condition and/or to evaluate & treat vital organ system(s) failure or risk of failure. Hospitalist Screening - Colonoscopy Questionnaire Colonoscopy Questionnaire: Colonoscopy Questionnaire - Patient: 50 - 75 years old and never had a screening colonoscopy: Unknown History of colon or rectal polyps, or CA: Unknown History of IBD, Crohn's disease or UC: Unknown History of abdominal radiation therapy as a child: Unknown - Relative: 1 with colon or rectal CA, or polyps at age 60 or younger: Unknown Colon or rectal CA diagnosed at age 45 or younger: Unknown Multiple relatives with colon or rectal CA: Unknown - Outcome: Screening Result: Negative Screen
[2017-11-05] MEDS ORDERED: LORazepam 2 MG/ML SDV VIAL IVPUSH PRN ×2 (18:18→18:54)
--- NOTE | 2017-11-05 18:51 | PN ---
Teaching Attending Note Name of Resident: Stephania Dave ATTENDING PHYSICIAN STATEMENT I saw and evaluated the patient. I reviewed the resident's note and discussed the case with the resident. I agree with the resident's findings and plan as documented with exceptions below. SUBJECTIVE: 72 yom with PMHx of Seizure disorder (with GTC seizures), prostate cancer on radiotherapy (last session this ), depression, HTN, Prior alcoholism ( abstinence x35yrs), GERD, ADHD, PACs (asymptomatic) was in his USOH till today aroudn 12:30 PM when noticed patient was having delayed responses, word finding difficulty, a few minutes later saw patient standing, holding onto to support with a blank stare and was brought to the ED. Patient improved while in ED but still with delayed responses and word finding difficulty. Neurology was consulted from ED and patient not deemed a tpa candidate as was already improving. Currently patient seen in radiology, no recollection of events. Major history provided by . Reports patient has recent increase in seizures , last in 07/2017, when his lamotrigine was increased to 200 mg BID, his seizures usually present as an aura with blank stare and usually predictable with GTC (with tongue bite/Clenching/shaking his extremities) within an hour. She felt today would be another episode but no GTC movement was noted. Patient with delayed responses, occasionally with no clear responses and noted with a stare, per no recent fevers, chills, dyspnea, cough, abdominal or urinary symptoms. OBJECTIVE: Vital Signs Period Temp Pulse Resp BP Sys/Gong Pulse Ox Last 24 Hr 97.4 F-98.1 F 64-69 16-16 137-150/70-85 98-100 Intake & Output 11/02/17 11/03/17 11/04/17 11/05/17 23:59 23:59 23:59 23:59 Weight 175 lb GENERAL: Awake, alert, oriented to place, self, able to state his birthday, but delayed responses, no response when asked about the month but when asked about year, stated "october" HEAD: Normal with no signs of trauma. EYES: Pupils bilaterally reactive to light, Left 2-> 1 mm, Right 1.5-> 1 mm, EOMI, no nystagmus EARS, NOSE, THROAT: Ears normal, nares patent, oropharynx clear without exudates. Moist mucous membranes. NECK: Soft, supple, no JVD LUNGS: Breath sounds equal, clear to auscultation bilaterally. No wheezes, and no crackles. No accessory muscle use. HEART: S1S2 regular ABDOMEN: Soft, nontender, not distended, normoactive bowel sounds, no guarding, no rebound, no masses. MUSCULOSKELETAL: Normal range of motion at all joints. No bony deformities or tenderness. No CVA tenderness. Extremities: no edema NEUROLOGICAL: facial symmetry, tongue midline, EOMI, pupils as above, power 5/ 5 generalized, no pronator drift, DTR bilaterally symmetric, brisk in upper extremities, neg Babinski, delayed response to questions. Awake, alert, oriented to place, self, able to state his birthday, but delayed responses, no response when asked about the month but when asked about year, stated "october" PSYCHIATRIC: Cooperative. Good eye contact. Appropriate mood and affect. SKIN: Warm, dry, normal turgor, no rashes or lesions noted, normal capillary refill. Home Medications Medication Instructions Recorded Aspirin [ASA -] 81 mg PO DAILY 04/29/14 Buspirone HCl [Buspar -] 15 mg PO BID 04/29/14 Sertraline HCl [Zoloft -] 75 mg PO DAILY 04/29/14 Lamotrigine [LaMICtal -] 200 mg PO BID 11/21/15 Ramipril 10 mg PO DAILY 11/21/15 Methylphenidate HCl [Ritalin LA] 40 mg PO DAILY 09/04/17 Acyclovir [Zovirax -] 200 mg PO BID 11/05/17 Active Medications Aspirin (Ecotrin -) 81 mg PO DAILY [facility] Atorvastatin Calcium (Lipitor -) 10 mg PO HS [facility] Buspirone HCl (Buspar -) 15 mg PO BID [facility] Heparin Sodium (Porcine) (Heparin -) 5,000 unit SQ TID [facility] Sodium Chloride (Normal Saline -) 1,000 mls @ 42 mls/hr IV ASDIR [facility] Last Admin: 11/05/17 14:30 Dose: 42 mls/hr Lamotrigine (Lamictal -) 200 mg PO BID [facility] Levetiracetam (Keppra -) 500 mg PO BID [facility] Lorazepam (Ativan Injection -) 2 mg IVPUSH Q1H PRN PRN Reason: AGITATION Nicotine (Nicoderm Patch -) 7 mg TD DAILY [facility] Sertraline HCl (Zoloft -) 75 mg PO DAILY [facility] Laboratory Results - last 24 hr 11/05/17 11/05/17 11/05/17 14:26 14:26 14:26 WBC 6.5 RBC 4.28 Hgb 13.5 Hct 40.1 MCV 93.6 MCH 31.6 MCHC 33.7 RDW 14.9 Plt Count 210 MPV 9.1 Absolute Neuts (auto) 4.9 Neutrophils % 75.8 Lymphocytes % 12.2 D Monocytes % 8.6 Eosinophils % 2.3 Basophils % 1.1 Nucleated RBC % 0 PT with INR 11.10 INR 0.98 Sodium Potassium Chloride Carbon Dioxide Anion Gap BUN Creatinine Creat Clearance w eGFR Random Glucose Calcium Total Bilirubin AST ALT Alkaline Phosphatase Creatine Kinase Troponin I Total Protein Albumin Triglycerides Cholesterol Total LDL Cholesterol HDL Cholesterol Urine Color Yellow Urine Appearance Clear Urine pH 6.0 Ur Specific [place] 1.021 Urine Protein Negative Urine Glucose (UA) Negative Urine Ketones Negative Urine Blood 1+ H Urine Nitrite Negative Urine Bilirubin Negative Urine Urobilinogen Negative Ur Leukocyte Esterase 1+ H Urine WBC (Auto) 24 Urine RBC (Auto) 4 Hyaline Casts 13 Urine Mucus Rare Blood Type Antibody Screen 11/05/17 11/05/17 14:26 14:26 WBC RBC Hgb Hct MCV MCH MCHC RDW Plt Count MPV Absolute Neuts (auto) Neutrophils % Lymphocytes % Monocytes % Eosinophils % Basophils % Nucleated RBC % PT with INR INR Sodium 142 Potassium 4.6 Chloride 108 H Carbon Dioxide 26 Anion Gap 8 BUN 20 H Creatinine 1.4 H Creat Clearance w eGFR 49.54 Random Glucose 97 Calcium 9.1 Total Bilirubin 0.3 AST 18 D ALT 21 D Alkaline Phosphatase 94 Creatine Kinase 113 Troponin I < 0.02 D Total Protein 6.8 Albumin 3.6 Triglycerides 178 H D Cholesterol 182 Total LDL Cholesterol 101 H HDL Cholesterol 60 Urine Color Urine Appearance Urine pH Ur Specific [place] Urine Protein Urine Glucose (UA) Urine Ketones Urine Blood Urine Nitrite Urine Bilirubin Urine Urobilinogen Ur Leukocyte Esterase Urine WBC (Auto) Urine RBC (Auto) Hyaline Casts Urine Mucus Blood Type O POSITIVE Antibody Screen Negative CT brain results reviewed EKG NSR incomplete RBBB ASSESSMENT AND PLAN: 72 yom with PMHx of Seizure disorder (with GTC seizures), prostate cancer on radiotherapy (last session this ), depression, HTN, Prior alcoholism ( abstinence x35yrs), GERD, ADHD, PACs (asymptomatic) admitted with AMS -AMS, presenting as delayed responses/word finding difficulty/stare, Seizure vs CVA, vs less likely encephalopathy from UTI -?Lower complicated UTI (on radiation for prostate Ca) -Seizure disorder -Depression -HTN -Prior alcoholism -GERD -ADHD -?Chronic herpes suppression Plan: Neurology consulted, MRI brain, neuro checks, telemetry, carotid, duplex. Seizure precuations. Keppra loading, keppra 500 mg BID. Continue lamotrigine. Prostate Ca on radiation, u/a noted. send urine cultures, start macrobid. Continue home meds. DVTPPX Dispo admit stroke tele PT eval, speech/swallow eval Plan discussed with in detail, all questions answered. Total admit time 65 min.
[2017-11-05 20:27] VITALS: BMI 25.0
[2017-11-05] MEDS ORDERED: busPIRone HCL 5 MG TABLET PO SCH (22:00)
[2017-11-05] MEDS ORDERED: NITROFURANTOIN MACROCRYSTAL 50 MG CAPSULE (FP) PO SCH (22:00)
[2017-11-05] MEDS: ATORVASTATIN CA 10 MG TABLET (FP) PO SCH (23:39)
[2017-11-05] MEDS: HEPARIN NA (PORCINE) 5,000 UNITS/ML 1ML VIAL SQ SCH (23:39)
[2017-11-05] MEDS: lamoTRIgine 100 MG TABLET (FP) PO SCH (23:39)
[2017-11-06] MEDS: HEPARIN NA (PORCINE) 5,000 UNITS/ML 1ML VIAL SQ SCH ×3 (06:06→21:11)
[2017-11-06 06:49] LABS: BASO % 0.9 % (0-2.0); EOS % 3.3 % (0-4.5); HEMATOCRIT 37.2 % (35.4-49); HEMOGLOBIN 12.6 GM/dL (11.7-16.9); LYMPH % 14.3 % (8-40); MCH 31.7 pg (25.7-33.7); MCHC 33.8 g/dl (32.0-35.9); MEAN CELL VOLUME 93.6 fl (80-96); MEAN PLT VOLUME 8.8 fl (7.5-11.1); NEUT % 73.5 % (42.8-82.8); PLATELET COUNT 196 K/MM3 (134-434); RBC 3.97 M/mm3 (4.00-5.60); RDW 14.7 % (11.9-15.9); WHITE BLOOD COUNT 5.9 K/mm3 (4.0-10.0)
[2017-11-06 07:56] LABS: ALBUMIN 3.5 g/dl (3.4-5.0); ALK PHOS 86 U/L (45-117); ANION GAP 4 (8-16); BILIRUBIN,TOTAL 0.3 mg/dL (0.2-1.0); BLOOD UREA NITROGEN 18 mg/dL (7-18); CALCIUM 8.8 mg/dL (8.5-10.1); CHLORIDE 110 mmol/L (98-107); CO2 30 mmol/L (21-32); CREATININE 1.4 mg/dL (0.7-1.3); GLUCOSE,RANDOM 84 mg/dL (74-106); MAGNESIUM 2.2 mg/dL (1.8-2.4); PHOSPHOROUS 2.9 mg/dL (2.5-4.9); POTASSIUM 4.5 mmol/L (3.5-5.1); SGOT/AST 12 U/L (15-37); SGPT/ALT 16 U/L (12-78); SODIUM 144 mmol/L (136-145); TOT PROT 6.2 g/dl (6.4-8.2)
--- NOTE | 2017-11-06 08:58 | PN ---
Physical Exam: SUBJECTIVE: Patient seen and examined,s till with delayed responses, at bedside concerned about not back to normal. reports patient has a teeth grinding shaking episode earlier, not witnessed earlier. OBJECTIVE: Vital Signs Period Temp Pulse Resp BP Sys/Gong Pulse Ox Last 24 Hr 97.4 F-98.4 F 52-69 14-16 137-164/70-85 97-100 GENERAL: sitting in bed in no acute distress chest:CTAB, no rales or wheezing Abdomen:soft, NT, ND Neuro: AA, still with delayed responses, unchanged exam, otherwise nonfocal Laboratory Results - last 24 hr 11/05/17 11/05/17 11/05/17 14:26 14:26 14:26 WBC 6.5 RBC 4.28 Hgb 13.5 Hct 40.1 MCV 93.6 MCH 31.6 MCHC 33.7 RDW 14.9 Plt Count 210 MPV 9.1 Absolute Neuts (auto) 4.9 Neutrophils % 75.8 Lymphocytes % 12.2 D Monocytes % 8.6 Eosinophils % 2.3 Basophils % 1.1 Nucleated RBC % 0 PT with INR 11.10 INR 0.98 Sodium Potassium Chloride Carbon Dioxide Anion Gap BUN Creatinine Creat Clearance w eGFR Random Glucose Calcium Phosphorus Magnesium Total Bilirubin AST ALT Alkaline Phosphatase Creatine Kinase Troponin I Total Protein Albumin Triglycerides Cholesterol Total LDL Cholesterol HDL Cholesterol Urine Color Yellow Urine Appearance Clear Urine pH 6.0 Ur Specific [place] 1.021 Urine Protein Negative Urine Glucose (UA) Negative Urine Ketones Negative Urine Blood 1+ H Urine Nitrite Negative Urine Bilirubin Negative Urine Urobilinogen Negative Ur Leukocyte Esterase 1+ H Urine WBC (Auto) 24 Urine RBC (Auto) 4 Hyaline Casts 13 Urine Mucus Rare Blood Type Antibody Screen 11/05/17 11/05/17 11/06/17 14:26 14:26 05:30 WBC 5.9 RBC 3.97 L Hgb 12.6 Hct 37.2 MCV 93.6 MCH 31.7 MCHC 33.8 RDW 14.7 Plt Count 196 MPV 8.8 Absolute Neuts (auto) 4.3 Neutrophils % 73.5 Lymphocytes % 14.3 Monocytes % 8.0 Eosinophils % 3.3 Basophils % 0.9 Nucleated RBC % 0 PT with INR INR Sodium 142 Potassium 4.6 Chloride 108 H Carbon Dioxide 26 Anion Gap 8 BUN 20 H Creatinine 1.4 H Creat Clearance w eGFR 49.54 Random Glucose 97 Calcium 9.1 Phosphorus Magnesium Total Bilirubin 0.3 AST 18 D ALT 21 D Alkaline Phosphatase 94 Creatine Kinase 113 Troponin I < 0.02 D Total Protein 6.8 Albumin 3.6 Triglycerides 178 H D Cholesterol 182 Total LDL Cholesterol 101 H HDL Cholesterol 60 Urine Color Urine Appearance Urine pH Ur Specific [place] Urine Protein Urine Glucose (UA) Urine Ketones Urine Blood Urine Nitrite Urine Bilirubin Urine Urobilinogen Ur Leukocyte Esterase Urine WBC (Auto) Urine RBC (Auto) Hyaline Casts Urine Mucus Blood Type O POSITIVE Antibody Screen Negative 11/06/17 05:30 WBC RBC Hgb Hct MCV MCH MCHC RDW Plt Count MPV Absolute Neuts (auto) Neutrophils % Lymphocytes % Monocytes % Eosinophils % Basophils % Nucleated RBC % PT with INR INR Sodium 144 Potassium 4.5 Chloride 110 H Carbon Dioxide 30 Anion Gap 4 L BUN 18 Creatinine 1.4 H Creat Clearance w eGFR 49.54 Random Glucose 84 Calcium 8.8 Phosphorus 2.9 Magnesium 2.2 Total Bilirubin 0.3 AST 12 L D ALT 16 D Alkaline Phosphatase 86 Creatine Kinase Troponin I Total Protein 6.2 L Albumin 3.5 Triglycerides Cholesterol Total LDL Cholesterol HDL Cholesterol Urine Color Urine Appearance Urine pH Ur Specific [place] Urine Protein Urine Glucose (UA) Urine Ketones Urine Blood Urine Nitrite Urine Bilirubin Urine Urobilinogen Ur Leukocyte Esterase Urine WBC (Auto) Urine RBC (Auto) Hyaline Casts Urine Mucus Blood Type Antibody Screen Active Medications Generic Name Dose Route Start Last Admin Trade Name Adalbertoq PRN Reason Stop Dose Admin Aspirin 81 mg 11/06/17 10:00 Ecotrin - PO DAILY [facility] Atorvastatin Calcium 10 mg 11/05/17 22:00 11/05/17 23:39 Lipitor - PO 10 mg HS [facility] Administration Buspirone HCl 10 mg/ Buspirone 15 mg 11/06/17 10:00 HCl 5 mg PO BID [facility] Heparin Sodium (Porcine) 5,000 unit 11/05/17 22:00 11/06/17 06:06 Heparin - SQ 5,000 unit TID [facility] Administration Sodium Chloride 1,000 mls @ 42 mls/hr 11/05/17 14:30 11/05/17 14:30 Normal Saline - IV 42 mls/hr ASDIR [facility] Administration Lamotrigine 200 mg 11/05/17 22:00 11/05/17 23:39 Lamictal - PO 200 mg BID [facility] Administration Levetiracetam 500 mg 11/06/17 10:00 Keppra - PO BID [facility] Lorazepam 2 mg 11/05/17 18:54 Ativan Injection - IVPUSH Q6H PRN AGITATION Nicotine 7 mg 11/05/17 17:30 Nicoderm Patch - TD DAILY [facility] Nitrofurantoin Macrocrystals 100 mg 11/06/17 10:00 Macrodantin - PO BID [facility] Sertraline HCl 75 mg 11/06/17 10:00 Zoloft - PO DAILY [facility] MRI brain neg for acute process Carotid doppler read pending. ASSESSMENT/PLAN: 72 yom with PMHx of Seizure disorder (with GTC seizures), prostate cancer on radiotherapy (last session this ), depression, HTN, Prior alcoholism ( abstinence x35yrs), GERD, ADHD, PACs (asymptomatic) admitted with AMS -AMS, presenting as delayed responses/word finding difficulty/stare, ?TIA vs seizure vs encephalopathy from UTI, MRI neg for CVA -?Lower complicated UTI (on radiation for prostate Ca) -Seizure disorder -Depression -HTN -Prior alcoholism -CKD stage II-III (baseline creatinine around 1.4) -GERD -ADHD -?Chronic herpes suppression Plan: MRI brain neg. Carotid dopplers noted, call manager neurology Dr. Garcia consulted in ED given r/o stroke, input appreciated. patient follows with Dr. Godinez, requesting input. Dr. Polanco covering Dr. Godinez, case discussed, concern for partial seizures. increase keppra to 1 g BID and change to IV. Discussed possible transfer to tertiary care for continuous EEG monitoring with Dr. Polanco and , will follow up. Continue lamotrigine, seizure precautions. Prostate Ca on radiation, u/a noted. Follow up urine cultures, Macrobid day 2. Creatinine around baseline, CVA ruled out. Resume ramipril. D/c IVF. Continue home meds. On Acyclovir for ?35 years. interested in discontinuation but patient hesitant. Will defer to PCP. DVTPPX Dispo pending clinical improvement and above work up. Plan discussed with , Dr. Garcia, and nursing in detail, all questions answered. Visit type - Emergency Visit Emergency Visit: No - New Patient This patient is new to me today: No - Critical Care Critical Care patient: No - Discharge Referral Referred to [facility] No
[2017-11-06] MEDS ORDERED: PT OWN MED DRAWER 7, Y5N ONE ×2 (09:50→20:48)
[2017-11-06] MEDS: BUSPIRONE HCL 10 MG, BUSPIRONE HCL 5 MG PO SCH ×2 (09:57→21:12)
[2017-11-06] MEDS: RAMIPRIL 5 MG CAPSULE (FP) PO SCH (09:58)
[2017-11-06] MEDS: ASPIRIN COATED 81 MG TABLET.EC PO SCH (09:59)
[2017-11-06] MEDS ORDERED: METHYLPHENIDATE HCL 40 MG PO SCH (10:00)
[2017-11-06] MEDS ORDERED: levETIRAcetam 500 MG TABLET (FP) PO SCH (10:00)
[2017-11-06] MEDS: lamoTRIgine 100 MG TABLET (FP) PO SCH ×2 (10:00→21:14)
[2017-11-06] MEDS: SERTRALINE HCL 25 MG TABLET (FP) PO SCH (10:01)
[2017-11-06] MEDS: NITROFURANTOIN MACROCRYSTAL 50 MG CAPSULE (FP) PO SCH ×2 (10:01→21:15)
--- NOTE | 2017-11-06 12:59 | CONSULT ---
Consult - text type - Consultation Consultation Note: Neurology CHIEF COMPLAINT: confusion HISTORY OF PRESENT ILLNESS: This is a 72 year old male with a history of epileptic seizures, hx of prostate CA s/p radiotherapy who presented with due to altered mental status. at bedside giving history. Patient reportedly did not remember his symptoms or how he came to the hospital. As per , she noticed around 12:30 yesterday afternoon that her was standing in bedroom, leaning, holding on to railing, staring off. This episode was less than five minutes. They then drove to the ER, she noticed some improvement, although still confused, not remembering episode and starring off. She denied any witnessed physical trauma , head injury, tongue biting, incontinence, cp, sob, n, v. He has history of generalized tonic clonic seizures and last seizure episode was in July 2107. Episodes consist of tongue biting, bowel incontinence, and bilateral arm clenching, which did not happen during this episode. She does states his aura last for about one hour and consists of starring. CT head completed and reviewed , no acute changes. MRI brain completed overnight, reviewed, and no CVA or acute changes noted. Discussed with at bedside today and had extensive conversation. He has been put on Keppra 500mg twice daily. She's concerned he's having seizures. He was arousable and briefly conversive but with word finding difficulties. Spoke to her with PCP for at least 30 mins. Offered option of continous epilepsy monitoring. Patient previously seen by Dr. Godinez and she did want to proceed with transfer to [facility]. Recent Travel: no PAST MEDICAL HISTORY: Prostate CA, HTN, depression, GERD, ADHD, Recovering alcoholic ; quit 35yrs ago ; seizure PAST SURGICAL HISTORY: Social History: Smoking:no Alcohol:previous hx quit 35yrs ago Drugs: none Family History: Allergies Penicillins Allergy (Intermediate, Verified 11/05/17 14:00) Rash Active Medications Aspirin (Ecotrin -) 81 mg PO DAILY [facility] Last Admin: 11/06/17 09:59 Dose: 81 mg Atorvastatin Calcium (Lipitor -) 10 mg PO HS [facility] Last Admin: 11/05/17 23:39 Dose: 10 mg Buspirone HCl 10 mg/ Buspirone (HCl 5 mg) 15 mg PO BID [facility] Last Admin: 11/06/17 09:57 Dose: 15 mg Heparin Sodium (Porcine) (Heparin -) 5,000 unit SQ TID [facility] Last Admin: 11/06/17 06:06 Dose: 5,000 unit Sodium Chloride (Normal Saline -) 1,000 mls @ 42 mls/hr IV ASDIR [facility] Last Admin: 11/05/17 14:30 Dose: 42 mls/hr Lamotrigine (Lamictal -) 200 mg PO BID [facility] Last Admin: 11/06/17 10:00 Dose: 200 mg Levetiracetam (Keppra -) 500 mg PO BID [facility] Last Admin: 11/06/17 10:00 Dose: 500 mg Lorazepam (Ativan Injection -) 2 mg IVPUSH Q6H PRN PRN Reason: AGITATION Nicotine (Nicoderm Patch -) 7 mg TD DAILY [facility] Nitrofurantoin Macrocrystals (Macrodantin -) 100 mg PO BID [facility] Last Admin: 11/06/17 10:01 Dose: 100 mg Ramipril (Altace -) 10 mg PO DAILY [facility] Last Admin: 11/06/17 09:58 Dose: 10 mg Sertraline HCl (Zoloft -) 75 mg PO DAILY [facility] Last Admin: 11/06/17 10:01 Dose: 75 mg PHYSICAL EXAMINATION Vital Signs Temperature 98.0 F 11/06/17 06:00 Pulse Rate 68 11/06/17 10:00 Respiratory Rate 15 11/06/17 10:00 Blood Pressure 162/84 11/06/17 10:00 O2 Sat by Pulse Oximetry (%) 100 11/06/17 09:00 GENERAL: Awake, starring, not making eye contact; does respond to commands; slow to react HEAD: Normal with no signs of trauma. EYES: Pupils un equal L>R, round and reactive to light, extraocular movements intact, sclera anicteric, conjunctiva clear. No lid lag. THROAT: oropharynx clear without exudates. dry mucous membranes. NECK: Normal range of motion, supple without lymphadenopathy, JVD, or masses. LUNGS: Breath sounds equal, clear to auscultation bilaterally. No wheezes, and no crackles. No accessory muscle use. HEART: Regular rate and rhythm, normal S1 and S2 without murmur, rub or gallop. ABDOMEN: Soft, nontender, not distended, normoactive bowel sounds, no guarding, no rebound, no masses. No hepatomegaly or splenomegaly. MUSCULOSKELETAL: Normal range of motion at all joints. No bony deformities or tenderness. No CVA tenderness. UPPER EXTREMITIES: 2+ pulses, warm, well-perfused. No cyanosis. No clubbing. No peripheral edema. LOWER EXTREMITIES: 2+ pulses, warm, well-perfused. No calf tenderness. No peripheral edema. NEUROLOGICAL: Cranial nerves II-XII intact.speech slowed. gait not observed. no facial droop, sensation intact, moving extremities grossly though not following commands, no abnormal motor activity note PSYCHIATRIC: Cooperative. Good eye contact. Appropriate mood and affect. SKIN: Warm, dry, normal turgor, no rashes or lesions noted, normal capillary refill. Laboratory Results - last 24 hr 11/05/17 11/05/17 11/05/17 14:26 14:26 14:26 WBC 6.5 RBC 4.28 Hgb 13.5 Hct 40.1 MCV 93.6 MCH 31.6 MCHC 33.7 RDW 14.9 Plt Count 210 MPV 9.1 Absolute Neuts (auto) 4.9 Neutrophils % 75.8 Lymphocytes % 12.2 D Monocytes % 8.6 Eosinophils % 2.3 Basophils % 1.1 Nucleated RBC % 0 PT with INR 11.10 INR 0.98 Sodium Potassium Chloride Carbon Dioxide Anion Gap BUN Creatinine Creat Clearance w eGFR Random Glucose Calcium Total Bilirubin AST ALT Alkaline Phosphatase Creatine Kinase Troponin I Total Protein Albumin Triglycerides Cholesterol Total LDL Cholesterol HDL Cholesterol Urine Color Yellow Urine Appearance Clear Urine pH 6.0 Ur Specific [place] 1.021 Urine Protein Negative Urine Glucose (UA) Negative Urine Ketones Negative Urine Blood 1+ H Urine Nitrite Negative Urine Bilirubin Negative Urine Urobilinogen Negative Ur Leukocyte Esterase 1+ H Urine WBC (Auto) 24 Urine RBC (Auto) 4 Hyaline Casts 13 Urine Mucus Rare Blood Type Antibody Screen 11/05/17 11/05/17 14:26 14:26 WBC RBC Hgb Hct MCV MCH MCHC RDW Plt Count MPV Absolute Neuts (auto) Neutrophils % Lymphocytes % Monocytes % Eosinophils % Basophils % Nucleated RBC % PT with INR INR Sodium 142 Potassium 4.6 Chloride 108 H Carbon Dioxide 26 Anion Gap 8 BUN 20 H Creatinine 1.4 H Creat Clearance w eGFR 49.54 Random Glucose 97 Calcium 9.1 Total Bilirubin 0.3 AST 18 D ALT 21 D Alkaline Phosphatase 94 Creatine Kinase 113 Troponin I < 0.02 D Total Protein 6.8 Albumin 3.6 Triglycerides 178 H D Cholesterol 182 Total LDL Cholesterol 101 H HDL Cholesterol 60 Urine Color Urine Appearance Urine pH Ur Specific [place] Urine Protein Urine Glucose (UA) Urine Ketones Urine Blood Urine Nitrite Urine Bilirubin Urine Urobilinogen Ur Leukocyte Esterase Urine WBC (Auto) Urine RBC (Auto) Hyaline Casts Urine Mucus Blood Type O POSITIVE Antibody Screen Negative Imaging CT head reviewed MRI brain reviewed ASSESSMENT/PLAN: 72 year old male with a history of epileptic seizures, hx of prostate CA s/p radiotherapy who presented with due to altered mental status. at bedside giving history. Patient reportedly did not remember his symptoms or how he came to the hospital. As per , she noticed around 12:30 yesterday afternoon that her was standing in bedroom, leaning, holding on to railing, staring off. This episode was less than five minutes. They then drove to the ER, she noticed some improvement, although still confused, not remembering episode and starring off. She denied any witnessed physical trauma , head injury, tongue biting, incontinence, cp, sob, n, v. He has history of generalized tonic clonic seizures and last seizure episode was in July 2107. Episodes consist of tongue biting, bowel incontinence, and bilateral arm clenching, which did not happen during this episode. She does states his aura last for about one hour and consists of starring. CT head completed and reviewed , no acute changes. MRI brain completed overnight, reviewed, and no CVA or acute changes noted. Discussed with at bedside today and had extensive conversation. He has been put on Keppra 500mg twice daily. She's concerned he's having seizures. He was arousable and briefly conversive but with word finding difficulties. Spoke to her with PCP for at least 30 mins. Offered option of continous epilepsy monitoring. Patient previously seen by Dr. Godinez and she did want to proceed with transfer to [facility]. PCP to connect with Dr. Godinez group for transfer of care as they know patient well. Keppra can be increased to 750mg twice daily. Ativan for seizure activity if persistent. Agree with transfer. Monitor BP, maintain normotensive range. DVT ppx. Total time of case, 1hr 15 mins.
[2017-11-06] MEDS ORDERED: levETIRAcetam 500 MG/5 ML INJECTION VIAL IVPB ONE ×3 (13:00→21:30)
[2017-11-06] MEDS: NICOTINE 7 MG/24 HOURS TOPICAL PATCH TD SCH (14:59)
[2017-11-06] MEDS: SODIUM CHLORIDE 1,000 ML IV SCH (15:16)
--- NOTE | 2017-11-06 17:06 | PN ---
Progress Note (short form) - Note Progress Note: Chart/hx. noted. Asked by hospitalist staff to see pt-he is followed by my colleague Dr. godinez. He appears yto have had flurries of partial seizures since yesterday noon-staring spella, clouding of consciousness, f;lexor movements of both legs without LOC and other accompaniemenbts that he usually has when he has gen. seizures. Last spell was early this morning. His informs His exam now reveals an awake, alert gentleman who follows all commands, he has apparent non-fluent speech and word finding difficulty but upon detailed examination he has a recent memory retrieval impairment, there is no aphasia. Pt. appears to have memory impairment as part of post ictal state, he does not appear to be having seizures at this time.?? infection trigerring breakthrough seizures. Plan: Cont. Lamictal 200mg bid Have increased Keppra to 1000mg ivss q12 hrs EEG tomorrow Will d/w Dr. Godinez tomorrow. Pts. agrees with above plan. Please call me [phone] if need arises tonight. Thank you, Fly Polanco MD
[2017-11-06] MEDS: ATORVASTATIN CA 10 MG TABLET (FP) PO SCH (21:14)
[2017-11-06] MEDS: levETIRAcetam 500 MG/5 ML INJECTION VIAL IVPB SCH (21:35)
[2017-11-07] MEDS: HEPARIN NA (PORCINE) 5,000 UNITS/ML 1ML VIAL SQ SCH ×2 (05:09→15:35)
[2017-11-07 06:07] LABS: BASO % 1.2 % (0-2.0); EOS % 3.5 % (0-4.5); HEMATOCRIT 36.7 % (35.4-49); HEMOGLOBIN 12.7 GM/dL (11.7-16.9); LYMPH % 24.3 % (8-40); MCH 32.4 pg (25.7-33.7); MCHC 34.7 g/dl (32.0-35.9); MEAN CELL VOLUME 93.5 fl (80-96); MEAN PLT VOLUME 8.8 fl (7.5-11.1); MONO % 9.6 % (3.8-10.2); NEUT % 61.4 % (42.8-82.8); PLATELET COUNT 182 K/MM3 (134-434); RBC 3.93 M/mm3 (4.00-5.60); RDW 14.6 % (11.9-15.9); WHITE BLOOD COUNT 4.5 K/mm3 (4.0-10.0)
[2017-11-07 06:35] LABS: ANION GAP 6 (8-16); BLOOD UREA NITROGEN 15 mg/dL (7-18); CALCIUM 8.7 mg/dL (8.5-10.1); CHLORIDE 109 mmol/L (98-107); CO2 29 mmol/L (21-32); CREATININE 1.3 mg/dL (0.7-1.3); GLUCOSE,RANDOM 86 mg/dL (74-106); PHOSPHOROUS 3.2 mg/dL (2.5-4.9); POTASSIUM 4.4 mmol/L (3.5-5.1); SODIUM 144 mmol/L (136-145)
--- NOTE | 2017-11-07 08:27 | PN ---
Teaching Attending Note Name of Resident: Baldo Ham ATTENDING PHYSICIAN STATEMENT I saw and evaluated the patient. I reviewed the resident's note and discussed the case with the resident. I agree with the resident's findings and plan as documented with exceptions below. SUBJECTIVE: Patient seen and examined. no complaints, talking well, no concerns. Denies any urinary symptoms. OBJECTIVE: Vital Signs Period Temp Pulse Resp BP Sys/Gong Pulse Ox Last 24 Hr 98.3 F-98.6 F 54-68 15-18 114-162/62-84 100-100 Intake & Output 11/04/17 11/05/17 11/06/17 11/07/17 23:59 23:59 23:59 23:59 Intake Total 168 1166 560 Output Total 250 1420 600 Balance -82 -254 -40 Weight 174 lb 6.4 oz General: sitting in bed in no acute distress Neuro: AAOx3, able to talk fluently, power 5/5, no gross deficits, improved today Active Medications Aspirin (Ecotrin -) 81 mg PO DAILY [facility] Last Admin: 11/06/17 09:59 Dose: 81 mg Atorvastatin Calcium (Lipitor -) 10 mg PO HS [facility] Last Admin: 11/06/17 21:14 Dose: 10 mg Buspirone HCl 10 mg/ Buspirone (HCl 5 mg) 15 mg PO BID [facility] Last Admin: 11/06/17 21:12 Dose: 15 mg Heparin Sodium (Porcine) (Heparin -) 5,000 unit SQ TID [facility] Last Admin: 11/07/17 05:09 Dose: 5,000 unit Sodium Chloride (Normal Saline -) 1,000 mls @ 42 mls/hr IV ASDIR [facility] Last Admin: 11/06/17 15:16 Dose: Not Given Lamotrigine (Lamictal -) 200 mg PO BID [facility] Last Admin: 11/06/17 21:14 Dose: 200 mg Levetiracetam (Keppra Injection -) 1,000 mg IVPB BID [facility] Last Admin: 11/06/17 21:35 Dose: 1,000 mg Lorazepam (Ativan Injection -) 2 mg IVPUSH Q6H PRN PRN Reason: AGITATION Nicotine (Nicoderm Patch -) 7 mg TD DAILY [facility] Last Admin: 11/06/17 14:59 Dose: 7 mg Nitrofurantoin Macrocrystals (Macrodantin -) 100 mg PO BID [facility] Last Admin: 11/06/17 21:15 Dose: 100 mg Ramipril (Altace -) 10 mg PO DAILY [facility] Last Admin: 11/06/17 09:58 Dose: 10 mg Sertraline HCl (Zoloft -) 75 mg PO DAILY [facility] Last Admin: 11/06/17 10:01 Dose: 75 mg Laboratory Results - last 24 hr 11/05/17 11/07/17 11/07/17 14:10 05:30 05:30 WBC 4.5 RBC 3.93 L Hgb 12.7 Hct 36.7 MCV 93.5 MCH 32.4 MCHC 34.7 RDW 14.6 Plt Count 182 MPV 8.8 Absolute Neuts (auto) 2.8 Neutrophils % 61.4 Lymphocytes % 24.3 D Monocytes % 9.6 Eosinophils % 3.5 Basophils % 1.2 Nucleated RBC % 0 Sodium 144 Potassium 4.4 Chloride 109 H Carbon Dioxide 29 Anion Gap 6 L BUN 15 Creatinine 1.3 Creat Clearance w eGFR 53.96 POC Glucometer 105.34673 Random Glucose 86 Calcium 8.7 Phosphorus 3.2 Magnesium 2.0 ASSESSMENT AND PLAN: 72 yom with PMHx of Seizure disorder (with GTC seizures), prostate cancer on radiotherapy (last session this ), depression, HTN, Prior alcoholism ( abstinence x35yrs), GERD, ADHD, PACs (asymptomatic) admitted with AMS -AMS, presenting as delayed responses/word finding difficulty/stare, ?TIA vs seizure vs encephalopathy from UTI, MRI neg for CVA -?Lower complicated UTI (on radiation for prostate Ca) -Seizure disorder -Depression -HTN -Prior alcoholism -CKD stage II-III (baseline creatinine around 1.4) -GERD -ADHD -?Chronic herpes suppression Plan: Symptoms resolved neurology input noted. Keppra and continue lamotrigine. outpatient EEG with Dr. Godinez. MRI neg for concerns. Carotid US noted. No events on telemetry. Follow up 2D echo. d/c home if 2D echo non concerning and if no new events. Plan discussed with patient in detail, all questions answered.
--- NOTE | 2017-11-07 08:32 | PN ---
Progress Note, Physician History of Present Illness: back to baseline, no seziures - Current Medication List Current Medications: Active Medications Aspirin (Ecotrin -) 81 mg PO DAILY [facility] Last Admin: 11/06/17 09:59 Dose: 81 mg Atorvastatin Calcium (Lipitor -) 10 mg PO HS [facility] Last Admin: 11/06/17 21:14 Dose: 10 mg Buspirone HCl 10 mg/ Buspirone (HCl 5 mg) 15 mg PO BID [facility] Last Admin: 11/06/17 21:12 Dose: 15 mg Heparin Sodium (Porcine) (Heparin -) 5,000 unit SQ TID [facility] Last Admin: 11/07/17 05:09 Dose: 5,000 unit Sodium Chloride (Normal Saline -) 1,000 mls @ 42 mls/hr IV ASDIR [facility] Last Admin: 11/06/17 15:16 Dose: Not Given Lamotrigine (Lamictal -) 200 mg PO BID [facility] Last Admin: 11/06/17 21:14 Dose: 200 mg Levetiracetam (Keppra Injection -) 1,000 mg IVPB BID [facility] Last Admin: 11/06/17 21:35 Dose: 1,000 mg Lorazepam (Ativan Injection -) 2 mg IVPUSH Q6H PRN PRN Reason: AGITATION Nicotine (Nicoderm Patch -) 7 mg TD DAILY [facility] Last Admin: 11/06/17 14:59 Dose: 7 mg Nitrofurantoin Macrocrystals (Macrodantin -) 100 mg PO BID [facility] Last Admin: 11/06/17 21:15 Dose: 100 mg Ramipril (Altace -) 10 mg PO DAILY [facility] Last Admin: 11/06/17 09:58 Dose: 10 mg Sertraline HCl (Zoloft -) 75 mg PO DAILY [facility] Last Admin: 11/06/17 10:01 Dose: 75 mg - Objective Vital Signs: Vital Signs Temperature 98.6 F 11/07/17 02:00 Pulse Rate 55 L 11/07/17 06:00 Respiratory Rate 18 11/07/17 06:00 Blood Pressure 114/62 11/07/17 06:00 O2 Sat by Pulse Oximetry (%) 100 11/06/17 20:10 Neurological: Yes: WNL (nonfocal) Labs: CBC, BMP 11/07/17 05:30 11/07/17 05:30 INR, PTT INR 0.98 (0.82-1.09) 11/05/17 14:26 - ....Imaging Cat Scan: Report Reviewed, Image Reviewed Problem List - Problems (1) Altered mental status Code(s): R41.82 - ALTERED MENTAL STATUS, UNSPECIFIED Qualifiers: Altered mental status type: unspecified Qualified Code(s): R41.82 - Altered mental status, unspecified (2) Epilepsy Code(s): G40.909 - EPILEPSY, UNSP, NOT INTRACTABLE, WITHOUT STATUS EPILEPTICUS Assessment/Plan Known Seizure D/O, with breakthrough , now stable and back to baseline on keppra 1000BID and lAmitcal 200BID ( prior seen outpt and we had discussed tapering RX but given this circumstance- -will maintain doses) he can be dc home and Follow up in office thanks Dr Godinez [phone]
[2017-11-07] MEDS ORDERED: PT OWN MED DRAWER 7, Y5N ONE ×2 (09:43→10:15)
[2017-11-07] MEDS: lamoTRIgine 100 MG TABLET (FP) PO SCH (10:41)
[2017-11-07] MEDS: BUSPIRONE HCL 10 MG, BUSPIRONE HCL 5 MG PO SCH (10:41)
[2017-11-07] MEDS: levETIRAcetam 500 MG/5 ML INJECTION VIAL IVPB SCH (10:41)
[2017-11-07] MEDS: SERTRALINE HCL 25 MG TABLET (FP) PO SCH (10:41)
[2017-11-07] MEDS: NICOTINE 7 MG/24 HOURS TOPICAL PATCH TD SCH ×2 (10:42→10:43)
[2017-11-07] MEDS: ASPIRIN COATED 81 MG TABLET.EC PO SCH (10:42)
[2017-11-07] MEDS: NITROFURANTOIN MACROCRYSTAL 50 MG CAPSULE (FP) PO SCH (10:42)
[2017-11-07] MEDS: RAMIPRIL 5 MG CAPSULE (FP) PO SCH (10:43)
--- NOTE | 2017-11-07 11:19 | CONSULT ---
Admitting History and Physical - Primary Care Physician PCP: Naif Harrington - Admission History of Present Illness: Admitted with dx of seizures. CT head/MRI (-). Back to baseline. Verbal. Cognitively intact. Swallowing intact. Reports h/o HH, with food sticking mid chest, needing to regurgitate food, last in 2016. Reflux symptoms controlled with Zantac. Educated pt on LPR/GERD precautions. History Source: Patient, Family Member Limitations to Obtaining History: No Limitations - Past Medical History HAT COPYIST: Yes: Alzheimer's, Seizure (Initially presented in 2010- thought to be due to Bupropion-discontinued) Cardiovascular: Yes: CAD Psych: Yes: Anxiety, Depression Musculoskeletal: Yes: Osteoarthritis - Past Surgical History Past Surgical History: Yes: None - Smoking History Smoking history: Never smoked Have you smoked in the past 12 months: No Aproximately how many cigarettes per day: 15 If you are a former smoker, when did you quit?: SMOKES E-CIGARETTES - Alcohol/Substance Use Hx Alcohol Use: Yes (RECOVERING ALCOHOLIC) - Social History ADL: Independent Occupation: retired History of Recent Travel: No History - Admission Reason For Visit: OBDULIA Altered Mental Status - Diagnostics X-ray: Report Reviewed CT Scan: Report Reviewed MRI: Report Reviewed - General Mental Status: Alert and Oriented, Awake and Alert, Able to Follow Commands Attention: Intact Ability to Follow Directions: Excellent Head/Neck Control: WFL - Hearing Hearing: Functional Hearing: Impaired Speech Evaluation - Communication Primary Language: SAMI Communication: Yes: Within Normal Limits Oral Expression Ability: Yes: No Impairment - Speech Production Able to Make Needs Known: Yes: WNL Intelligibility: Yes: WNL - Speech Characteristics Voice Loudness: Normal Voice Pitch: Yes: Normal Voice Phonatory-based Quality: Yes: Normal Speech Pattern: Normal Speech Clarity: < 100% Nasal Resonance: Normal Articulation: Yes: Precise Rate of Speech: Intact - Language/Auditory Comprehension Follows: Yes: Complex Commands - Language/Verbal Expression Able to Respond to Simple Queries: Yes: WNL Able to Communicate Wants and Needs: Yes: WNL Functional Communication Status: Yes: WNL - Memory/Perception terminal operator Memory: Yes: WNL Short Term Memory: Yes: WNL - Swallow Evaluation/Bedside Assessment Current Nutritional Intake: Regular, Thin Liquids Oral Secretions: Yes: WFL Dentition: Yes: Adequate Facial Symmetry at Rest: Symmetrical Facial Symmetry on Retraction: Symmetrical Facial Movement: Controlled Sensation: Normal Against Resistance Opening: Normal Against Resistance Closing: Normal Pucker Lips: Normal Smile: Normal Lingual Movement: Normal, Symmetric Lingual Speed of Movement: Normal Lingual Movement Strgth Against Opposition: Normal Lingual Movement Characteristics: Normal Velopharyngeal Movement: Normal Laryngeal Elevation: WFL Laryngeal Movement: Able to Palpate Rate of Intake: WFL Bolus Size: WFL Labial Seal: WFL Chewing: WFL Oral Prep Time: WFL A-P Transit: WFL Pocketing: None Timing of Swallow: WFL Coughing/Throat Clear: No Change in Voice: No Recommendations - Speech Evaluation, Impression/Plan Impression: Speech,swallow, cognition intact- back to baseline. Educated pt on LPR/GERD precautions.Handout given. Educated on reduction of caffiene, carbonation,citrus, spicy foods, upright after meals, etc. Encouraged Mediterannean diet/Alkaline water. - Dysphagia Impressions/Plan Swallowing Skills: WFL Dysphagia Impressions: No Impairment *Silent aspiration: cannot be R/O at bedside - Recommendations Diet Consistency: Regular Medication Administration: Whole with water Liquids: Thin Liquids
--- NOTE | 2017-11-07 14:31 | DS ---
Physical Exam: SUBJECTIVE: Patient seen and examined at bedside. No complaints at this time. OBJECTIVE: Vital Signs Period Temp Pulse Resp BP Sys/Gong Pulse Ox Last 24 Hr 98.6 F 54-66 16-18 114-131/62-74 98-100 PHYSICAL EXAM Gen: NAD sitting comfortably in bed. AAOx3 HEENT: NCAT, EOMI Neck: supple, no jvd Cardio: RRR, no MRG, normal s1s2 Pulm: cta b/l Abd: soft nontender, normal bs Ext: 2+ pulses, no edema LABS Laboratory Results - last 24 hr 11/05/17 11/07/17 11/07/17 14:10 05:30 05:30 WBC 4.5 RBC 3.93 L Hgb 12.7 Hct 36.7 MCV 93.5 MCH 32.4 MCHC 34.7 RDW 14.6 Plt Count 182 MPV 8.8 Absolute Neuts (auto) 2.8 Neutrophils % 61.4 Lymphocytes % 24.3 D Monocytes % 9.6 Eosinophils % 3.5 Basophils % 1.2 Nucleated RBC % 0 Sodium 144 Potassium 4.4 Chloride 109 H Carbon Dioxide 29 Anion Gap 6 L BUN 15 Creatinine 1.3 Creat Clearance w eGFR 53.96 POC Glucometer 105.97750 Random Glucose 86 Calcium 8.7 Phosphorus 3.2 Magnesium 2.0 HOSPITAL COURSE: Date of Admission:11/05/17 Date of Discharge: 11/07/17 Pt is a 72 M with PMHx of Seizure disorder with generalized tonic clonic seizures, prostate cancer on radiotherapy (last session this ), depression, HTN, Prior alcoholism (abstinence x35yrs), GERD, ADHD, PACs ( asymptomatic) who was brought to ED with AMS. He was admitted for seizure vs stroke workup. Pt was worked up for stroke. CT, MRI, Carotid U/S were all negative. Lipids revealed high TG. Pt has known seizure disorder. This episode was likely a seizure. He was seen by Neurology who recommended Lamictal and Keppra and out pt follow up in 2 weeks. Pt has been receiveing XRT for prostate CA. He had a UA concerning for UTI, but UCx was negative. Pt has hx of Depression, which was stable during his admission. Pt has HTN. He was treated with home meds. Pt has CKD stage II-III (baseline creatinine around 1.4). Ehs Teacher was at baseline. Pt also has history of GERD, ADHD, genital herpes (suppressed with Acyclovir), and prior alcoholism, none of which were active concerns during this admission. Pt is stable for d/c home at this time. Minutes to complete discharge: 30 Discharge Summary Reason For Visit: OBDULIA Altered Mental Status Current Active Problems OBDULIA (acute kidney injury) (Acute) Altered mental status (Acute) Word finding difficulty (Acute) Condition: Good - Instructions Diet, Activity, Other Instructions: You were in the hospital because of a seizure. You need to follow up with your neurologist, Dr. Godinez in [address] weeks[address] not [address], operate heavy machinery, or be alone near water or on heights or with children until your neurologist clears you. You are being discharged with the following seizure medications: Lamigdal 200mg twice daily Keppra 1000mg twice daily (new medication) Please make sure you take your medications as directed. You can resume the rest of your medications as before. Discuss with Dr. Godinez for outpatient EEG. Referrals: Emre Godinez DO [Staff Physician] - 2 Weeks ON STAFF,NOT [Primary Care Provider] - 1 Week Disposition: HOME - Home Medications Comprehensive Discharge Medication List: Ambulatory Orders Aspirin [ASA -] 81 mg PO DAILY 04/29/14 Buspirone HCl [Buspar -] 15 mg PO BID 04/29/14 Sertraline HCl [Zoloft -] 75 mg PO DAILY 04/29/14 Lamotrigine [LaMICtal -] 200 mg PO BID 11/21/15 Ramipril 10 mg PO DAILY 11/21/15 Methylphenidate HCl [Ritalin LA] 40 mg PO DAILY 09/04/17 Acyclovir [Zovirax -] 200 mg PO BID 11/05/17 levETIRAcetam [Keppra -] 500 mg PO BID #56 tablet 11/07/17 This patient is new to me today: No Emergency Visit: No Critical Care patient: No - Discharge Referral Referred to [facility] Med P.C.: No
[2017-11-07] MEDS: SODIUM CHLORIDE 1,000 ML IV SCH (15:35)
[2017-11-07 17:21] VITALS: TEMP 98
[2017-11-07 17:22] VITALS: BP 105/63; PULSE 62
--- NOTE | 2017-11-07 21:49 | EKG ---
Test Reason : Blood Pressure : / mmHG Vent. Rate : 066 BPM Atrial Rate : 066 BPM P-R Int : 178 ms QRS Dur : 100 ms QT Int : 398 ms P-R-T Axes : 032 004 040 degrees QTc Int : 417 ms NORMAL SINUS RHYTHM INCOMPLETE RIGHT BUNDLE BRANCH BLOCK BORDERLINE ECG WHEN COMPARED WITH ECG OF 05-SEP-2017 00:46, PREMATURE VENTRICULAR COMPLEXES ARE NO LONGER PRESENT VENT. RATE HAS DECREASED BY 79 BPM Confirmed by NOELLE PAULINO, JENARO ([id number]) on 11/07/2017 9:49:37 PM Referred By: Confirmed By:JENARO DRAKE MD
== END 2017-11-07 17:45 | disposition home or self-care (01) | DRG 101 ==
LOC: JER 13:53 → JERBED 16:21 → J2W 20:22
PROVIDERS: ADMIT Hospitalist; ATTEND Hospitalist
DX: G40.909 Epilepsy, unspecified, not intractable, without status epilepticus (principal); N17.9 Acute kidney failure, unspecified; M62.82 Rhabdomyolysis; R47.01 Aphasia; H91.93 Unspecified hearing loss, bilateral; E78.1 Pure hyperglyceridemia; I25.10 Atherosclerotic heart disease of native coronary artery without angina pectoris; E78.5 Hyperlipidemia, unspecified; K21.9 Gastro-esophageal reflux disease without esophagitis; F32.9 Major depressive disorder, single episode, unspecified; F90.9 Attention-deficit hyperactivity disorder, unspecified type; A60.00 Herpesviral infection of urogenital system, unspecified; Z85.46 Personal history of malignant neoplasm of prostate; Z88.0 Allergy status to penicillin
CPT/HCPCS: 36415; 70450-TC; 70551-TC; 80048; 80053; 81003; 81015; 82465; 82550; 82962; 83036; 83718; 83721; 83735; 84100; 84478; 84484; 85025; 85610; 86850; 86900; 86901; 87086; 93005; 93010; 93306-TC; 93880-TC; 95816; 97116-GP; 97161-GP; 99285-25; J1644; J7030

== ENCOUNTER 2018-06-01 20:10 | Inpatient (IN) | payer OTHER, MEDICARE ==
--- NOTE | 2018-06-01 20:17 | PDOC ---
Rapid Medical Evaluation Time Seen by Provider: 06/01/18 20:15 Medical Evaluation: Allergies Allergy/AdvReac Type Severity Reaction Status Date / Time Penicillins Allergy Intermediate Rash Verified 11/05/17 14:00 06/01/18 20:15 I have performed a brief in-person evaluation of this patient. The patient presents with a chief complaint of: Seizure, AMS - does not seem to be recovering as usual. Given 1000mg Keppra by . Pertinent physical exam findings: Ambulatory and following commands but not speaking. I have ordered the following: Labs, CT brain. The patient will proceed to the ED for further evaluation. Discharge Disposition - Diagnosis Altered mental status Qualifiers: Altered mental status type: disorientation Qualified Code(s): R41.0 - Disorientation, unspecified - Referrals - Patient Instructions - Post Discharge Activity
[2018-06-01 20:22] VITALS: BMI 24.3
--- NOTE | 2018-06-01 20:48 | PDOC ---
History of Present Illness - General Chief Complaint: Altered Mental Status Stated Complaint: ALTERED MENTAL STATUS Time Seen by Provider: 06/01/18 20:15 - History of Present Illness Initial Comments: The patient is a 73M w/ history of seizure d/o, depression, HSV (acyclovir) presents for evaluation for prolonged post-ictal state. Hx per as patient is aphasic at time of presentation. She states that since 1130 today the patient has not been at baseline. She states that he has not had any of his typical seizure activity but had an 'aura' starting at that time. He was able to eat lunch but noted that he became aphasic. She gave him 1000mg of keppra and spoke with his Neurologist. She states that he may have missed his evening and/or morning dose of Keppra over the last 24 hrs. She denies him having any tonic-clonic activity, bowel or bladder incontinence, or tongue injury. Endorses recent illness (1wk URI), denies fevers, vomiting, diarrhea. 06/01/18 21:05 tPA Exclusion checklist 3-4.5h - Time Elapsed Date last known well: 06/01/18 Time last known well: 11:30 Elaspsed time: Day(s) and 13 Hour(s) and 45 Minutes - Thrombolytic Therapy Candidate Is patient eligible for thrombolytic therapy: No - Exclusion Criteria 3-4.5 hr SBP greater than 185 or DBP greater than 110mmHg despite tx: No Recent IC/spinal surgery,head trauma or stroke<3mos.: No Hx IC hemorrhage, IC neoplasm, AV malformation or aneurysm: No Active internal bleeding: No Blding diathesis(low plt ct, inc PTT,INR>1.7 or use of NOAC): No Symptoms suggest subarachnoid hemorrhage: No CT demonstrates multilobar infarct(>1/3 cerebral hemiphere): No Arterial puncture at noncompressible site in previous 7 days: No Blood glucose concentration less than 50mg/dL (2.7mmol/L): No - Relative Exclusion Criteria 3-4.5 hr Life expectancy <1 yr or severe co-morbid illness: No : No Patient/family refused: No Rapid improvement: No Stroke severity too mild: No Recent acute WI (w/in previous 3 months): No Seizure at onset with postictal residual neuro impairments: Yes Major surgery or serious trauma w/in previous 14 days: No Recent GI or hemorrhage (w/in previous 21 days): No - Add'l Relative Exclusion 3-4.5 hr Age > 80: No - Ineligibility reason(s) Reasons No tPA given: Outside of window - delayed arrival NIH Stroke Scale - Last Known Well Date/Time & Onset Date Last Known Well: 06/01/18 Time Last Known Well: 11:30 - Initial Evaluation Level of consciousness: Alert Ask patient the month and their age: Both incorrect Ask patient to open & close eyes; make fist and let go: Obeys both correctly Best gaze (horizontal eye movement): Normal Visual field testing: No visual field loss Facial paresis (Show teeth/raise eyebrows/close eyes tight): Normal symmetrical movement Motor Function: Left Arm: Normal Motor Function: Right Arm: Normal (extends arm 90 (or 45) degrees for 10 seconds without drift Motor Function: Left Leg: Normal (extends leg 30 degrees for 5 seconds without drift) Motor Function: Right Leg: Normal (extends leg 30 degrees for 5 seconds without drift) Limb Ataxia: No ataxia Sensory(Use pinprick test arms,legs,trunk,face/side to side): Normal Best language (Describe picture, name items, read sentences): Mild to moderate aphasia Dysarthria (read several words): Mild to moderate slurring of words Extinction and Inattention: No abnormality - Total Score NIH Stroke Scale Score: 4 Past History - Past Medical History Allergies/Adverse Reactions: Allergies Allergy/AdvReac Type Severity Reaction Status Date / Time Penicillins Allergy Intermediate Rash Verified 11/05/17 14:00 Home Medications: Ambulatory Orders Aspirin [ASA -] 81 mg PO DAILY 04/29/14 Sertraline HCl [Zoloft -] 100 mg PO BID 04/29/14 Lamotrigine [LaMICtal -] 200 mg PO BID 11/21/15 Ramipril 5 mg PO HS 11/21/15 Acyclovir [Zovirax -] 200 mg PO BID 11/05/17 levETIRAcetam [Keppra -] 500 mg PO BID #56 tablet 11/07/17 Cholecalciferol (Vitamin D3) [Vitamin D3 -] 400 unit PO DAILY 06/01/18 Anemia: No Asthma: No Cancer: Yes (radiation for prostate ? 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 PRESENTLY IN A) Diabetes: (STUDY REGARDING MEMORY ISSUES @ [facility]) GI Disorders: Yes (GERD) Disorders: No HTN: Yes Hypercholesterolemia: No Liver Disease: No Psychiatric Problems: Yes (DEPRESSION) Seizures: Yes (SEIZURE DISORDER-ON LAMICTAL NOW-LAST SEIZURE 04/2014) Thyroid Disease: No - Surgical History Abdominal Surgery: Yes (hernia sx at age 23) Appendectomy: No Cardiac Surgery: No Cholecystectomy: No Lung Surgery: No Neurologic Surgery: No Orthopedic Surgery: No - Immunization History Immunization Up to Date: Yes - Suicide/Smoking/Psychosocial Hx Smoking History: Former smoker Have you smoked in the past 12 months: No Number of Cigarettes Smoked Daily: 15 If you are a former smoker, when did you quit?: SMOKES E-CIGARETTES Information on smoking cessation initiated: No 'Breaking Loose' booklet given: 09/04/17 Hx Alcohol Use: Yes (RECOVERING ALCOHOLIC) Drug/Substance Use Hx: No Substance Use Type: None Hx 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 Moist mucosa LUNGS: No distress, speaks full sentences, clear to auscultation bilaterally HEART: Regular rate and rhythm, normal S1 and S2, no murmurs appreciated, peripheral pulses normal and equal bilaterally ABDOMEN: Soft, nontender, normoactive bowel sounds. No guarding, no rebound EXTREMITIES : Normal inspection, Normal range of motion, no edema. No clubbing or cyanosis SKIN: Warm, Dry NEUROLOGICAL: Awake, oriented to person only, follows simple commands, no focal motor/sensory deficit. Partial expressive aphasia w/ questionable receptive aphasia 06/01/18 22:35 Moderate Sedation - Procedure Monitoring Vital Signs: Procedure Monitoring Vital Signs Temperature 98.8 F 06/01/18 20:19 Pulse Rate 66 06/01/18 20:19 Respiratory Rate 17 06/01/18 20:19 Blood Pressure 152/77 06/01/18 20:19 O2 Sat by Pulse Oximetry (%) 100 06/01/18 20:19 ED Treatment Course - LABORATORY CBC & Chemistry Diagram: 06/01/18 20:50 06/01/18 22:50 Medical Decision Making - Critical Care Time Total Critical Care Time (minutes): 35 Critical Care Statement: The care of this patient involved high complexity decision making to prevent further life threatening deterioration of the patient 's condition and/or to evaluate & treat vital organ system(s) failure or risk of failure. - Medical Decision Making The patient is a 73M w/ a history of seizure d/o who presents for evaluation for change of seizure activity, prolonged ictal state, and aphasia since 1129 today. ED Course NIHSS 4, outside of window for TPA CT Head w/o evidence of acute pathology No leukocytosis No anemia 06/01/18 21:51 s/p Ativan 2mg IV once for seizure in ED Mild elevation in lactate, 1.8 CK wnl Pending repeat BMP as lytes not likely accurate Plan for admission to Stroke floor for r/o stroke MRI pending Neuro consulted Dispo: Admit 06/01/18 23:13 Lytes wnl LFTs wnl 06/02/18 01:20 *DC/Admit/Observation/Transfer Diagnosis at time of Disposition: Seizure Altered mental status Qualifiers: Altered mental status type: disorientation Qualified Code(s): R41.0 - Disorientation, unspecified - Discharge Dispostion Condition at time of disposition: Fair Decision to Admit order: Yes - Referrals - Patient Instructions - Post Discharge Activity
--- NOTE | 2018-06-01 20:58 | PDOC ---
Attending Attestation - HPI HPI: 06/01/18 22:31 Patient is a 73 year old male with a significant past medical history of Prostate CA, HTN, depression, GERD, ADHD, seizure, who presents to the ED with complaints of seizures that occured this morning at 11:30am. As per patient's , patient experienced a seizure this morning, starting shortly after patient was unable to speak, follow commands and unable to state where he was a who his was. She reports calling patient's neurologist who advised she give the patient 1000 mg of keppra. Patient's reports bringing the patient into the ED for further evaluation after patient's post ictal state continued for 9 hours. Denies chest pain, Sob. Denies nausea, vomiting. Denies fevers, chills. Denies dysuria, hematuria. Denies constipation, diarrhea. Denies trauma to affected area. Denies contact with sick individuals, out of state travelling. Denies any other symptoms. Allergies: Penicillin Social history: No smoking. Former alcohol use (last 35 years ago). No illicit drugs. Surgical: None PMD: Dr. Hopkins - Physicial Exam PE: 06/01/18 22:31 GENERAL: Awake, alert, and fully oriented, in no acute distress HEAD: No signs of trauma EYES: PERRLA, EOMI, sclera anicteric, conjunctiva clear ENT: Auricles normal inspection, hearing grossly normal, nares patent, oropharynx clear without exudates. Moist mucosa NECK: Normal ROM, supple, no lymphadenopathy, JVD, or masses LUNGS: Breath sounds equal, clear to auscultation bilaterally. No wheezes, and no crackles HEART: Regular rate and rhythm, normal S1 and S2, no murmurs, rubs or gallops ABDOMEN: Soft, nontender, normoactive bowel sounds. No guarding, no rebound. No masses EXTREMITIES: Normal range of motion, no edema. No clubbing or cyanosis. No cords, erythema, or tenderness NEUROLOGICAL: +Muscle strength 5/5 upper and lower extremity. +follows simple commands. +Partial expressive aphasia possible expressive aphasia. AAO to person only. Unable to provide history. Cranial nerves II through XII grossly intact. SKIN: Warm, Dry, normal turgor, no rashes or lesions noted. <Wing Michelle - Last Filed: 06/01/18 22:31> - Resident Resident Name: Jose Daniel Handley - ED Attending Attestation I have performed the following: I have examined & evaluated the patient, The case was reviewed & discussed with the resident, I agree w/resident's findings & plan, Exceptions are as noted - Critical Care Time Total Critical Care Time: 35 Critical Care Statement: The care of this patient involved high complexity decision making to prevent further life threatening deterioration of the patient 's condition and/or to evaluate & treat vital organ system(s) failure or risk of failure. - Medical Decision Making 06/01/18 20:57 I, Dr. Светлана Stein, DO, attest that this document has been prepared under my direction and personally reviewed by me in its entirety. I further attest, that it accurately reflects all work, treatment, procedures and medical decision -making performed by me. 06/01/18 22:19 a/p: 73yo male with hx of frontal lobe dementia and seizures on Keppra - follows with Dr. Polanco -symptoms started at 1130 - aphasic/ no shaking, but less responsive -given 1000mg keppra at home at noon -still aphasic at dinner with some hand trembling, which is different from his prior seizure activity -pt will speak his own name, will say yes and no, but unable to answer other questions -pt had a seizure in the ED - given ativan -head ct ordered from [facility] was negative -no TPA given seizure activity -concern for CVA vs status epilepticus -will discuss with neurology -will admit to [facility] -pmd is Dr. Short 06/01/18 22:49 resident discussed the case with Dr. Polanco case was discussed with BARTOLOMEERIK who accepts pt to service 06/01/18 22:51 chemistry labs abnl will repeat the chemistry 06/01/18 23:23 repeat chem at baseline Cr sodium 140 <Светлана Stein - Last Filed: 06/01/18 23:23> Heart Score/ECG Review - ECG Intrepretation Comment:: 06/01/18 22:18 sinus at 65, nl axis, nl interval, no acute st/t wave findings <Светлана Stein - Last Filed: 06/01/18 23:23>
[2018-06-01] MEDS ORDERED: LORazepam 2 MG/ML SDV VIAL ONE (21:13)
[2018-06-01 21:15] LABS: BASO % 0.8 % (0-2.0); EOS % 1.2 % (0-4.5); HEMATOCRIT 37.9 % (35.4-49); HEMOGLOBIN 12.7 GM/dL (11.7-16.9); MCHC 33.6 g/dl (32.0-35.9); MEAN CELL VOLUME 89.5 fl (80-96); MEAN PLT VOLUME 8.3 fl (7.5-11.1); MONO % 6.1 % (3.8-10.2); NEUT % 78.9 % (42.8-82.8); PLATELET COUNT 316 K/MM3 (134-434); RBC 4.23 M/mm3 (4.00-5.60); RDW 15.6 % (11.9-15.9); WHITE BLOOD COUNT 6.9 K/mm3 (4.0-10.0)
[2018-06-01 21:38] LABS: INR 0.99 (0.83-1.09); PROTHROMBIN TIME (PATIENT) 11.7 SEC (9.7-13.0)
[2018-06-01] MEDS ORDERED: levETIRAcetam 250 MG TABLET (FP) PO SCH (22:00)
[2018-06-01 22:27] LABS: ALBUMIN 3.8 g/dl (3.4-5.0); ALK PHOS 116 U/L (45-117); BILIRUBIN,TOTAL 0.2 mg/dL (0.2-1); BLOOD UREA NITROGEN 22 mg/dL (7-18); CALCIUM 8.8 mg/dL (8.5-10.1); CO2 26 mmol/L (21-32); CREATININE 1.6 mg/dL (0.55-1.3); GLUCOSE,RANDOM 103 mg/dL (74-106); SGOT/AST 12 U/L (15-37); SGPT/ALT 17 U/L (13-61); TOT PROT 7.1 g/dl (6.4-8.2)
--- NOTE | 2018-06-01 23:21 | HP ---
CHIEF COMPLAINT: PCP: Dr. Dangelo HISTORY OF PRESENT ILLNESS: 73 y/o M with PMH prostate CA (s/p radiation), HTN, depression, GERD, ADHD, sz disorder (dx 2013), who presented to the ED for aura that started at 11:30AM. As per , at this time pt became slow to respond and stared straight ahead. became worried as this continued for hours, thus she called pt's neurologist, Dr. Polanco who advised to load pt with Keppra 1000mg x 1. Afterward , pt was able to eat lunch, but became increasingly lethargic and aphasic, thus she brought pt to the ED for further evaluation. It is unclear whether pt skipped his PM doses of Keppra and lamictal. Denies fever, chills, SOB, or changes in urinary or bowel function. While in ED, pt had a sz episode where he stared straight ahead and his eyes rolled to the back of his head. Was given ativan 2mg IVP x1 which resolved the activity. Pt was dx with sz disorder in 2013. Since then, he has had four sz episodes as per - last ep in August. During his usual episodes, he stares straight ahead , has urinary incontinence and tonic-clonic movements. Dr. Polanco is his neurologist. Per , his keppra dosing was scheduled to change to 750mg in PM and 500mg in AM recently. At baseline, he is able to ambulate on his own and is verbal. Was about to take a trip to [place] this week. 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 Smoking: in past- not currently; unable to quantify Alcohol: quit 36 yrs ago, used to drink heavily Drugs: denies Family History: seizures - uncle, mother - dementia Allergies Penicillins Allergy (Intermediate, Verified 11/05/17 14:00) Rash Seizures HOME MEDICATIONS: Home Medications Medication Instructions Recorded Aspirin [ASA -] 81 mg PO DAILY 04/29/14 Sertraline HCl [Zoloft -] 100 mg PO BID 04/29/14 Lamotrigine [LaMICtal -] 200 mg PO BID 11/21/15 Ramipril 5 mg PO HS 11/21/15 Acyclovir [Zovirax -] 200 mg PO BID 11/05/17 levETIRAcetam [Keppra -] 500 mg PO BID #56 tablet recently discussed change to 750HS [address] Polanco, neuro 11/07/17 Cholecalciferol (Vitamin D3) 400 unit PO DAILY 06/01/18 [Vitamin D3 -] medications have been verified by at bedside with list REVIEW OF SYSTEMS CONSTITUTIONAL: Absent: fever, chills, diaphoresis, generalized weakness, malaise, loss of appetite, weight change HEENT: Absent: rhinorrhea, nasal congestion, throat pain, throat swelling, difficulty swallowing, mouth swelling, ear pain, eye pain, visual changes CARDIOVASCULAR: Absent: chest pain, syncope, palpitations, irregular heart rate, lightheadedness , peripheral edema RESPIRATORY: Absent: cough, shortness of breath, dyspnea with exertion, orthopnea, wheezing, stridor, hemoptysis GASTROINTESTINAL: Absent: abdominal pain, abdominal distension, nausea, vomiting, diarrhea, constipation, melena, hematochezia GENITOURINARY: Absent: dysuria, frequency, urgency, hesitancy, hematuria, flank pain, genital pain MUSCULOSKELETAL: Absent: myalgia, arthralgia, joint swelling, back pain, neck pain SKIN: Absent: rash, itching, pallor HEMATOLOGIC/IMMUNOLOGIC: Absent: easy bleeding, easy bruising, lymphadenopathy, frequent infections ENDOCRINE: Absent: unexplained weight gain, unexplained weight loss, heat intolerance, cold intolerance NEUROLOGIC: +aphasia, mental status change, ?sz Absent: headache, focal weakness or paresthesias, dizziness, unsteady gait, seizure, mental status changes, bladder or bowel incontinence PSYCHIATRIC: Absent: anxiety, depression, suicidal or homicidal ideation, hallucinations. PHYSICAL EXAMINATION Vital Signs - 24 hr 06/01/18 20:19 Temperature 98.8 F Pulse Rate 66 Respiratory 17 Rate Blood Pressure 152/77 O2 Sat by Pulse 100 Oximetry (%) GENERAL: resting in bed, in NAD HEAD: Normal with no signs of trauma. without facial asymmetry EYES: Pupils equal, round and reactive to light, extraocular movements intact, sclera anicteric, conjunctiva clear. EARS, NOSE, THROAT: Ears normal, nares patent, oropharynx clear NECK: Normal range of motion, supple LUNGS: Breath sounds equal, clear to auscultation bilaterally. No wheezes, and no crackles. No accessory muscle use. HEART: Regular rate and rhythm, normal S1 and S2 without murmur, rub or gallop. ABDOMEN: Soft, nontender, not distended, normoactive bowel sounds, no guarding, no rebound LOWER EXTREMITIES: 2+ pt pulses, warm, well-perfused. No calf tenderness. No peripheral edema. NEUROLOGICAL: CN 2-6, 8-12 grossly intact. 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 3/5 upper and lower ext strength. +clenched UE. sensation intact throughout no pronator drift in UE or LE 2+ bicep, brachioradialis, patellar reflexes b/l. +dysmetria PSYCHIATRIC: Cooperative. SKIN: Warm, dry Laboratory Results 06/01/18 06/01/18 06/01/18 00:24 20:50 20:50 AST 12 L ALT 17 Triglycerides 141 Cholesterol 177 Total LDL Cholesterol 104 H HDL Cholesterol 48 Levetiracetam Pending 06/01/18 06/01/18 20:50 22:50 BUN 23 H Creatinine 1.5 H TSH 2.[address] Head CT: no CT evidence of acute intracranial pathology. The intracranial structures demonstrate no definite interval change in comparison to a prior CT study of 11/05/17. interval development of mild mucosal thickening is seen within the R sphenoid sinus ventrally. EKG: NSR, nl axis, no acute ST-t wave changes. rate 65bpm, AR 182ms, QRS 90ms, Qtc 422ms ASSESSMENT/PLAN: 73 y/o M with PMH prostate CA, HTN, depression, GERD, ADHD, sz disorder (dx 2013 ), who presented to the ED for aura that started at 11:30AM. #seizure episodes 2/2 likely medication noncompliance -likely as pt non compliant with PM doses of lamotrigine, and keppra night prior to episode -may also need improved med baseline coverage to prevent episodes -s/p keppra loading 1000mg prior to presentation -will c/w keppra 500mg qd, 750mg HS as per recent rec adjustment by neuro as per . convert to PO when able -f/u keppra level -c/w lamictal -ativan PRN for breakthrough episodes -neuro consult: Dr. Sherri -f/u brain MRI -sz precautions #CAD -c/w asa 81 #HTN- uncontrolled -c/w rampiril #Depression -c/w zoloft #F/E/N gentle IVF continue to follow lytes NPO except meds until assessed by speech/swallow #PPX DVT: SCD's #Dispo admit to 4w/4S Visit type - Emergency Visit Emergency Visit: Yes ED Registration Date: 06/01/18 Care time: The patient presented to the Emergency Department on the above date and was hospitalized for further evaluation of their emergent condition. - New Patient This patient is new to me today: Yes Date on this admission: 06/02/18 - Critical Care Critical Care patient: No
[2018-06-01 23:22] LABS: ANION GAP 4 MMOL/L (8-16); BLOOD UREA NITROGEN 23 mg/dL (7-18); CALCIUM 8.5 mg/dL (8.5-10.1); CHLORIDE 109 mmol/L (98-107); CO2 28 mmol/L (21-32); CREATININE 1.5 mg/dL (0.55-1.3); GLUCOSE,RANDOM 105 mg/dL (74-106); POTASSIUM 4.4 mmol/L (3.5-5.1); SODIUM 140 mmol/L (136-145)
[2018-06-01 23:42] LABS: ANION GAP 5 MMOL/L (8-16); CHLORIDE 109 mmol/L (98-107); POTASSIUM 4.4 mmol/L (3.5-5.1); SODIUM 140 mmol/L (136-145)
[2018-06-01] MEDS: SODIUM CHLORIDE 1,000 ML IV SCH (23:58)
[2018-06-02 00:34] LABS: CHOLESTEROL 177 mg/dL (50-200); HDL CHOLESTEROL 48 mg/dL (40-60); TRIGLYCERIDES 141 mg/dL (0-150)
[2018-06-02] MEDS ORDERED: levETIRAcetam 250 MG TABLET (FP) PO SCH (01:00)
--- NOTE | 2018-06-02 01:00 | PN ---
Teaching Attending Note Name of Resident: Kinsey Mtz ATTENDING PHYSICIAN STATEMENT I saw and evaluated the patient. I reviewed the resident's note and discussed the case with the resident. I agree with the resident's findings and plan as documented. SUBJECTIVE: This is a 73 year old man with a history of seizure disorder, CAD, HTN, stage 3 CKD, depression, GERD, ADHD, prostate cancer who comes to the ED because of a possible seizure. As per his , around 11:30 am, she noted he was slow to respond and was staring straight ahead. After several hours, she called Dr. Polanco who advised her to give him Keppra 1000 mg PO x 1 and then increase his standing doses. He was able to eat lunch, but then became lethargic and aphasic, and so she brought him to the ED for further evaluation. She thinks he might have missed his doses of Keppra and Lamictal last night and this morning. While in the ED, he had an episode where he stared straight ahead and his eyes rolled back. He was treated with Ativan 2 mg IVP, and he improved. Currently he is sleeping but arousable. OBJECTIVE: Vital Signs Period Temp Pulse Resp BP Sys/Gong Pulse Ox Last 24 Hr 98.8 F 66 17 152/77 100 HEART: S1S2, RRR LUNGS: Clear ABDOMEN: Soft, non-distended, normal BS EXTREMITIES: No edema NEUROLOGICAL: Arousable, nods yes/no, follows some commands, strength 4/5 in all extremities Laboratory Tests 06/01/18 06/01/18 06/01/18 00:24 20:47 20:50 WBC 6.9 RBC 4.23 Hgb 12.7 Hct 37.9 MCV 89.5 MCH 30.0 MCHC 33.6 RDW 15.6 Plt Count 316 D MPV 8.3 Absolute Neuts (auto) 5.5 Neutrophils % 78.9 D Lymphocytes % 13.0 D Monocytes % 6.1 Eosinophils % 1.2 Basophils % 0.8 Nucleated RBC % 0 PT with INR INR Sodium Potassium Chloride Carbon Dioxide Anion Gap BUN Creatinine Creat Clearance w eGFR Random Glucose Lactic Acid 1.8 Calcium Total Bilirubin AST ALT Alkaline Phosphatase Creatine Kinase 70 Troponin I < 0.02 Total Protein Albumin Triglycerides 141 Cholesterol 177 Total LDL Cholesterol 104 H HDL Cholesterol 48 TSH 06/01/18 06/01/18 06/01/18 20:50 20:50 20:50 WBC RBC Hgb Hct MCV MCH MCHC RDW Plt Count MPV Absolute Neuts (auto) Neutrophils % Lymphocytes % Monocytes % Eosinophils % Basophils % Nucleated RBC % PT with INR 11.70 INR 0.99 Sodium 140 Potassium 4.4 Chloride 109 H Carbon Dioxide 26 Anion Gap 5 L BUN 22 H Creatinine 1.6 H Creat Clearance w eGFR 42.35 Random Glucose 103 Lactic Acid Calcium 8.8 Total Bilirubin 0.2 AST 12 L ALT 17 Alkaline Phosphatase 116 Creatine Kinase 86 Troponin I Total Protein 7.1 Albumin 3.8 Triglycerides Cholesterol Total LDL Cholesterol HDL Cholesterol TSH 2.15 D 06/01/18 22:50 WBC RBC Hgb Hct MCV MCH MCHC RDW Plt Count MPV Absolute Neuts (auto) Neutrophils % Lymphocytes % Monocytes % Eosinophils % Basophils % Nucleated RBC % PT with INR INR Sodium 140 Potassium 4.4 Chloride 109 H Carbon Dioxide 28 Anion Gap 4 L BUN 23 H Creatinine 1.5 H Creat Clearance w eGFR 45.62 Random Glucose 105 Lactic Acid Calcium 8.5 Total Bilirubin AST ALT Alkaline Phosphatase Creatine Kinase Troponin I Total Protein Albumin Triglycerides Cholesterol Total LDL Cholesterol HDL Cholesterol TSH Home Medications Medication Instructions Recorded Aspirin [ASA -] 81 mg PO DAILY 04/29/14 Sertraline HCl [Zoloft -] 100 mg PO BID 04/29/14 Lamotrigine [LaMICtal -] 200 mg PO BID 11/21/15 Ramipril 5 mg PO HS 11/21/15 Acyclovir [Zovirax -] 200 mg PO BID 11/05/17 levETIRAcetam [Keppra -] 500 mg PO BID #56 tablet 11/07/17 Cholecalciferol (Vitamin D3) 400 unit PO DAILY 06/01/18 [Vitamin D3 -] ASSESSMENT AND PLAN: This is a 73 year old man with a history of seizure disorder, CAD, HTN, stage 3 CKD, depression, GERD, ADHD, prostate cancer who presented to the ED after a possible seizure. 1. Probable seizure, now post-ictal - Likely secondary to missing medication doses - Patient was given Keppra 1000 mg PO earlier today - Increase Keppra from 500 mg bid to 500 mg in am and 750 mg in pm - Continue Lamictal - MRI of brain pending - Neurology consult 2. CAD - Continue aspirin 3. HTN - Continue ramipril 4. Stage 3 CKD - Stable 5. Depression - Continue Zoloft 6. ADHD 7. GERD 8. Prostate cancer
[2018-06-02] MEDS ORDERED: levETIRAcetam 500 MG/5 ML INJECTION VIAL IVPB SCH ×2 (01:15→10:00)
[2018-06-02] MEDS ORDERED: levETIRAcetam 500 MG/5 ML INJECTION VIAL IVPB ONE ×2 (01:27→10:34)
[2018-06-02] MEDS: lamoTRIgine 100 MG TABLET (FP) PO SCH ×3 (01:35→21:14)
[2018-06-02 08:08] LABS: BASO % 0.7 % (0-2.0); EOS % 1.6 % (0-4.5); HEMATOCRIT 33.7 % (35.4-49); HEMOGLOBIN 11.4 GM/dL (11.7-16.9); LYMPH % 16.1 % (8-40); MCH 30.3 pg (25.7-33.7); MEAN PLT VOLUME 7.8 fl (7.5-11.1); MONO % 7.2 % (3.8-10.2); NEUT % 74.4 % (42.8-82.8); PLATELET COUNT 256 K/MM3 (134-434); RBC 3.78 M/mm3 (4.00-5.60); RDW 15.1 % (11.9-15.9); WHITE BLOOD COUNT 6.1 K/mm3 (4.0-10.0)
[2018-06-02 09:03] LABS: ALBUMIN 3.2 g/dl (3.4-5.0); ALK PHOS 95 U/L (45-117); ANION GAP 4 MMOL/L (8-16); BILIRUBIN,TOTAL 0.3 mg/dL (0.2-1); BLOOD UREA NITROGEN 19 mg/dL (7-18); CALCIUM 8.7 mg/dL (8.5-10.1); CHLORIDE 109 mmol/L (98-107); CO2 28 mmol/L (21-32); CREATININE 1.3 mg/dL (0.55-1.3); GLUCOSE,RANDOM 88 mg/dL (74-106); POTASSIUM 4.3 mmol/L (3.5-5.1); SGOT/AST 12 U/L (15-37); SGPT/ALT 14 U/L (13-61); SODIUM 141 mmol/L (136-145)
[2018-06-02 09:51] LABS: URINE APPEARANCE CLEAR; URINE BILIRUBIN NEGATIVE (<2.0 mg/dL); URINE COLOR LTYELLOW; URINE GLUCOSE (UA) NEGATIVE (NEGATIVE); URINE KETONE NEGATIVE (NEGATIVE); URINE LEUK ESTERASE NEGATIVE (NEGATIVE); URINE NITRITE NEGATIVE (NEGATIVE); URINE PROTEIN NEGATIVE (NEGATIVE); URINE UROBILINOGEN NEGATIVE mg/dL (0.2-1.0)
--- NOTE | 2018-06-02 09:53 | CON.NEURO ---
Consult - History of Present Illness History of Present Illness: 73 y/o M with PMH prostate CA (s/p radiation), HTN, depression, GERD, ADHD, sz disorder (dx 2013), who presented to the ED for aura that started at 11:30AM. As per , at this time pt became slow to respond and stared straight ahead. became worried as this continued for hours, thus she called pt's neurologist, Dr. Polanco who advised to load pt with Keppra 1000mg x 1. Afterward , pt was able to eat lunch, but became increasingly lethargic and aphasic, thus she brought pt to the ED for further evaluation. It is unclear whether pt skipped his PM doses of Keppra and lamictal. Denies fever, chills, SOB, or changes in urinary or bowel function. While in ED, pt had a sz episode where he stared straight ahead and his eyes rolled to the back of his head. Was given ativan 2mg IVP x1 which resolved the activity. Pt was dx with sz disorder in 2013. Since then, he has had four sz episodes as per - last ep in August. During his usual episodes, he stares straight ahead , has urinary incontinence and tonic-clonic movements. Dr. Polanco is his neurologist. Per , his keppra dosing was scheduled to change to 750mg in PM and 500mg in AM recently. is unsure regarding his complaince. today , he is poorly attentive, sleepy, unable to elaborate hx ( is present ) - Past Medical History AIR DIRECTOR: Yes: Alzheimer's, Seizure (Initially presented in 2010- thought to be due to Bupropion-discontinued) Cardio/Vascular: Yes: CAD Psych: Yes: Anxiety, Depression Musculoskeletal: Yes: Osteoarthritis - Past Surgical History Past Surgical History: Yes: None - Alcohol/Substance Use Hx Alcohol Use: Yes (RECOVERING ALCOHOLIC) - Smoking History Smoking history: Former smoker Have you smoked in the past 12 months: No Aproximately how many cigarettes per day: 15 If you are a former smoker, when did you quit?: SMOKES E-CIGARETTES - Social History Usual Living Arrangement: Alone ADL: Independent Occupation: retired History of Recent Travel: No Home Medications - Allergies Allergies/Adverse Reactions: Allergies Allergy/AdvReac Type Severity Reaction Status Date / Time Penicillins Allergy Intermediate Rash Verified 11/05/17 14:00 - Home Medications Home Medications: Ambulatory Orders Aspirin [ASA -] 81 mg PO DAILY 04/29/14 Sertraline HCl [Zoloft -] 100 mg PO BID 04/29/14 Lamotrigine [LaMICtal -] 200 mg PO BID 11/21/15 Ramipril 5 mg PO HS 11/21/15 Acyclovir [Zovirax -] 200 mg PO BID 11/05/17 levETIRAcetam [Keppra -] 500 mg PO BID #56 tablet 11/07/17 Cholecalciferol (Vitamin D3) [Vitamin D3 -] 400 unit PO DAILY 06/01/18 Physical Exam-Neuro Vital Signs: Vital Signs Temperature 98.5 F 06/02/18 01:24 Pulse Rate 59 L 06/02/18 06:44 Respiratory Rate 06/02/18 01:24 Blood Pressure 142/73 06/02/18 06:44 O2 Sat by Pulse Oximetry (%) 99 06/02/18 06:44 Labs: CBC, BMP 06/02/18 07:45 06/02/18 07:45 INR, PTT INR 0.99 (0.83-1.09) 06/01/18 20:50 Imaging - Results MRI: Image Reviewed Problem List - Problems (1) Altered mental status Code(s): R41.82 - ALTERED MENTAL STATUS, UNSPECIFIED Qualifiers: Altered mental status type: disorientation Qualified Code(s): R41.0 - Disorientation, unspecified (2) Seizure Code(s): R56.9 - UNSPECIFIED CONVULSIONS (3) Epilepsy Code(s): G40.909 - EPILEPSY, UNSP, NOT INTRACTABLE, WITHOUT STATUS EPILEPTICUS Assessment/Plan 73 y/o M with [facility] prostate CA (s/p radiation), HTN, depression, GERD, ADHD, sz disorder (dx 2013), who presented to the ED for aura that started at 11:30AM. As per , at this time pt became slow to respond and stared straight ahead. became worried as this continued for hours, thus she called pt's neurologist, Dr. Polanco who advised to load pt with Keppra 1000mg x 1. Afterward , pt was able to eat lunch, but became increasingly lethargic and aphasic, thus she brought pt to the ED for further evaluation. It is unclear whether pt skipped his PM doses of Keppra and lamictal. Denies fever, chills, SOB, or changes in urinary or bowel function. While in ED, pt had a sz episode where he stared straight ahead and his eyes rolled to the back of his head. Was given ativan 2mg IVP x1 which resolved the activity. Pt was dx with sz disorder in 2013. Since then, he has had four sz episodes as per - last ep in August. During his usual episodes, he stares straight ahead , has urinary incontinence and tonic-clonic movements. Dr. Polanco is his neurologist. Per , his keppra dosing was scheduled to change to 750mg in PM and 500mg in AM recently--though he never followed with this. AP : breakthrough SZ , ? noncompliance vs idiopathic epilepsy continue Keppra 500BID for now ( in past he has been reluctant to go higher dose ) ; compliance has been issue add VIMPAT 100 IV x now, and then start 50BID ideally will achieve mental baseline if not will consider prolonged post ictal vs status vs less likley psych FU MRI BRAIN plz call any questions DR RUBI [phone]
[2018-06-02] MEDS: ASPIRIN 81 MG CHEWABLE TABLETS PO SCH (10:00)
[2018-06-02] MEDS: SERTRALINE HCL 50 MG TABLET (FP) PO SCH ×2 (10:00→21:14)
[2018-06-02] MEDS: levETIRAcetam 500 MG/5 ML INJECTION VIAL IVPB SCH ×2 (10:00→21:14)
[2018-06-02] MEDS ORDERED: Lacosamide 200 MG/20 ML VIAL IVPB ONE ×2 (10:41→11:35)
--- NOTE | 2018-06-02 10:53 | PN ---
Teaching Attending Note Name of Resident: Va Lafleur ATTENDING PHYSICIAN STATEMENT I saw and evaluated the patient. I reviewed the resident's note and discussed the case with the resident. I agree with the resident's findings and plan as documented with exceptions below. SUBJECTIVE: Patient seen and examined. word finding difficult, delayed responses to intermittent questioning. Was aware is at [facility], and may but unable to provide date or year. limited interview given the same. OBJECTIVE: Vital Signs Period Temp Pulse Resp BP Sys/Gong Pulse Ox Last 24 Hr 98.5 F-98.8 F 59-66 -19 102-152/58-77 98-100 Intake & Output 05/30/18 05/31/18 06/01/18 06/02/18 23:59 23:59 23:59 23:59 Weight 170 lb General: sitting in bed in no acute distress Chest: CTAB, no rales or wheezing Abdomen: soft, NT, ND, positive bowel sounds extremities: no edema neuro: AA, word finding difficulty, delayed responses, knows is [facility], may, power 5/5, pronator drift, finger nose test with no past pointing, toes down going Home Medications Medication Instructions Recorded Aspirin [ASA -] 81 mg PO DAILY 04/29/14 Sertraline HCl [Zoloft -] 100 mg PO BID 04/29/14 Lamotrigine [LaMICtal -] 200 mg PO BID 11/21/15 Ramipril 5 mg PO HS 11/21/15 Acyclovir [Zovirax -] 200 mg PO BID 11/05/17 levETIRAcetam [Keppra -] 500 mg PO BID #56 tablet 11/07/17 Cholecalciferol (Vitamin D3) 400 unit PO DAILY 06/01/18 [Vitamin D3 -] Active Medications Aspirin (Asa -) 81 mg PO DAILY CONCEPCION Sodium Chloride (Normal Saline -) 1,000 mls @ 42 mls/hr IV ASDIR CONCEPCION Last Admin: 06/01/18 23:58 Dose: 42 mls/hr Lacosamide (Vimpat Injection -) 50 mg IVPB BID CONCEPCION Lamotrigine (Lamictal -) 200 mg PO BID CONCEPCION Last Admin: 06/02/18 01:35 Dose: 200 mg Levetiracetam (Keppra Injection -) 500 mg IVPB BID CONCEPCION Sertraline HCl (Zoloft -) 100 mg PO BID CONCEPCION Abnormal Lab Results 06/01/18 06/01/18 06/01/18 00:24 20:50 22:50 RBC Hgb Hct Chloride 109 H 109 H Anion Gap 5 L 4 L BUN 22 H 23 H Creatinine 1.6 H 1.5 H AST 12 L Total Protein Albumin Total LDL Cholesterol 104 H 06/02/18 06/02/18 07:45 07:45 RBC 3.78 L Hgb 11.4 L Hct 33.7 L Chloride 109 H Anion Gap 4 L BUN 19 H Creatinine AST 12 L Total Protein 6.0 L Albumin 3.2 L Total LDL Cholesterol ASSESSMENT AND PLAN: 73 yom with PMHx of prostate CA (s/p radiation), HTN, depression, GERD, ADHD, sz disorder (dx 2013), alcoholism (abstinent x35 years), admitted with seizure/ AMS -Breakthrough seizure, medication non compliance vs idiopathic epilepsy -AMS, prolonged post ictal state, less likely psych -OBDULIA, suspect from hypovolumia -ADHD -HTN -Depression -GERD -Prostate Ca s/p radiation Plan: Patient known to me from prior admit Similar presentation then with word finding difficulty/delayed responses/stare. Prolonged post ictal state high on differential. Per charts, usual seizure with stare/urinary incontinence/Generalized tonic clonic seizures. Neurology input appreicated. Beltran. Loaded with vimpat. Follow up MRI brain EEG from 11/2017 suggestive of epileptic activity, again favors seizure with post ictal state rather than psych. Per charts, patient also reportedly with psych history with psychosis, psychotic episodes, paranoia, schizophrenia, hallucination, or misperceptions ( per discussion with Dr. Russo) Hold Ramipril, gentle hydration Neuro checks, seizure precautions. Continue ASA/sertraline Heparin for DVTPPx pending MRI read Dispo d/c planning in 24 hours pending clinical improvement, MRI brain
--- NOTE | 2018-06-02 11:39 | EKG ---
Test Reason : Blood Pressure : / mmHG Vent. Rate : 065 BPM Atrial Rate : 065 BPM P-R Int : 182 ms QRS Dur : 090 ms QT Int : 406 ms P-R-T Axes : 078 011 044 degrees QTc Int : 422 ms POOR DATA QUALITY, INTERPRETATION MAY BE ADVERSELY AFFECTED NORMAL SINUS RHYTHM NORMAL ECG WHEN COMPARED WITH ECG OF 05-NOV-2017 14:40, NO SIGNIFICANT CHANGE WAS FOUND Confirmed by JUANA PAULINO, LAWSON ([id number]) on 06/02/2018 11:38:36 AM Referred By: Confirmed By:LAWSON ARIAS MD
--- NOTE | 2018-06-02 15:07 | CONSULT ---
Admitting History and Physical - Primary Care Physician PCP: Naif Harrington - Admission History of Present Illness: Per EMR- 73 yom with PMHx of prostate CA (s/p radiation), HTN, depression, GERD, ADHD, sz disorder (dx 2013), alcoholism (abstinent x35 years), admitted with seizure/ AMS -Breakthrough seizure, medication non compliance vs idiopathic epilepsy -AMS, prolonged post ictal state, less likely psych -OBDULIA, suspect from hypovolumia -ADHD -HTN -Depression -GERD -Prostate Ca s/p radiation CT head/MRI head noted. 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: Alzheimer's, Seizure (Initially presented in 2010- thought to be due to Bupropion-discontinued) Cardiovascular: Yes: CAD Psych: Yes: Anxiety, Depression Musculoskeletal: Yes: Osteoarthritis - Past Surgical History Past Surgical History: Yes: None - Smoking History Smoking history: Former smoker Have you smoked in the past 12 months: No Aproximately how many cigarettes per day: 15 If you are a former smoker, when did you quit?: SMOKES E-CIGARETTES - Alcohol/Substance Use Hx Alcohol Use: Yes (RECOVERING ALCOHOLIC) - Social History ADL: Independent Occupation: retired History of Recent Travel: No History - Admission Reason For Visit: SEIZURE ALTERED MENTAL STATUS HYPERTENSION - Diagnostics X-ray: Report Reviewed CT Scan: Report Reviewed MRI: Report Reviewed - General Mental Status: Awake and Alert, Forgetful, Vague, Confused Attention: Distractible, Moderate Impairment Ability to Follow Directions: Fair Head/Neck Control: Good - Hearing Hearing: Normal Hearing Aide: No Speech Evaluation - Communication Primary Language: BULGARIAN Communication: Yes: Simple Responses - Speech Production Intelligibility: Yes: WNL - Speech Characteristics Voice Loudness: Normal Voice Pitch: Yes: Normal Voice Phonatory-based Quality: Yes: Normal Speech Pattern: Normal Speech Clarity: < 100% Nasal Resonance: Normal Articulation: Yes: Precise Rate of Speech: Intact - Language/Auditory Comprehension Observation: Able to respond to yes/no queries: Yes, Comprehends Conversational Speech: Yes (simple. When attending), Benefits from Repetiton: Yes - Language/Verbal Expression Able to Respond to Simple Queries: Yes: Moderately Impaired - Swallow Evaluation/Bedside Assessment Current Nutritional Intake: NPO Oral Secretions: Yes: WFL Dentition: Yes: Adequate Facial Symmetry at Rest: Symmetrical Facial Symmetry on Retraction: Symmetrical Facial Movement: Controlled Against Resistance Opening: Normal Against Resistance Closing: Normal Pucker Lips: Normal Smile: Normal Lingual Movement: Normal, Symmetric Lingual Speed of Movement: Normal Lingual Movement Strgth Against Opposition: Normal Lingual Movement Characteristics: Normal Velopharyngeal Movement: Normal Laryngeal Elevation: WFL Laryngeal Movement: Able to Palpate Rate of Intake: WFL Bolus Size: WFL Labial Seal: WFL Chewing: WFL Oral Prep Time: WFL A-P Transit: WFL Pocketing: None Timing of Swallow: WFL Coughing/Throat Clear: No Change in Voice: No Recommendations - Speech Evaluation, Impression/Plan Impression: Post-ictal. Just woke up, distractible, fleeting attention, difficulty answering questions but achieved on simple level intermittently. Swallowing intact. Risk of aspiration sec to distractibility. - Dysphagia Impressions/Plan Swallowing Skills: WFL Dysphagia Impressions: Risk of Aspiration *Silent aspiration: cannot be R/O at bedside Dysphagia Treatment Plan: Other (Assist with meals) - Recommendations Diet Consistency: Other (Trial full fluids,thin liquids, Upgrade as pt becomes more alert and attentive, as tolerated.)
--- NOTE | 2018-06-02 18:13 | PN ---
Physical Exam: SUBJECTIVE: Patient seen and examined by me at bedside. Patient responds to verbal commands but unable to speak. Only thing he can say is "ok" but with delayed response. Otherwise, unable to give information. When asking systemic questions, nods no to chest pain, palpitations, shortness of breath, fever, chills, nausea, vomiting, abdominal pain. OBJECTIVE: Vital Signs Period Temp Pulse Resp BP Sys/Gong Pulse Ox Last 24 Hr 98.1 F-98.8 F 59-70 17-19 102-158/58-88 98-100 GENERAL: The patient is awake, alert, in no acute distress HEAD: Normal with no signs of trauma. EYES: PERRL, extraocular movements intact, sclera anicteric, conjunctiva clear. No ptosis. ENT: moist mucous membranes. NECK: Trachea midline, full range of motion, supple. LUNGS: Breath sounds equal, clear to auscultation bilaterally, no wheezes, no crackles, no accessory muscle use. HEART: Regular rate and rhythm, S1, S2 without murmur, rub or gallop. ABDOMEN: Soft, nontender, nondistended, normoactive bowel sounds, no guarding, no rebound, no hepatosplenomegaly, no masses. EXTREMITIES: No edema. NEUROLOGICAL: Cranial nerves II through XII grossly intact but with delayed responses and only able to say "OK" SKIN: Warm, dry, normal turgor, no rashes or lesions noted Laboratory Results 06/02/18 07:45 06/02/18 07:45 Active Medications Generic Name Dose Route Start Last Admin Trade Name Adalbertoq PRN Reason Stop Dose Admin Aspirin 81 mg 06/02/18 10:00 06/02/18 10:00 Asa - PO 81 mg DAILY CONCEPCION Administration Sodium Chloride 1,000 mls @ 42 mls/hr 06/01/18 23:15 06/01/18 23:58 Normal Saline - IV 42 mls/hr ASDIR CONCEPCION Administration Lacosamide 50 mg 06/02/18 22:00 Vimpat Injection - IVPB BID CONCEPCION Lamotrigine 200 mg 06/02/18 00:45 06/02/18 10:00 Lamictal - PO 200 mg BID CONCEPCION Administration Levetiracetam 500 mg 06/02/18 10:45 06/02/18 10:00 Keppra Injection - IVPB 500 mg BID CONCEPCION Administration Sertraline HCl 100 mg 06/02/18 10:00 06/02/18 10:00 Zoloft - PO 100 mg BID CONCEPCION Administration IMAGES: Head CT: no CT evidence of acute intracranial pathology. The intracranial structures demonstrate no definite interval change in comparison to a prior CT study of 11/05/17. interval development of mild mucosal thickening is seen within the R sphenoid sinus ventrally. BRAIN MRI: Moderate volume loss without evidence of acute intracranial pathology. ASSESSMENT/PLAN: 73 y/o M with PMH prostate CA, HTN, depression, GERD, ADHD, sz disorder (dx 2013 ), who presented to the ED for aura that started at 11:30AM. #Seizure Episodes 2/2 likely Medication Noncompliance vs. idiopathic epilepsy -likely as pt non compliant with PM doses of lamotrigine, and keppra night prior to episode -Similar presentation with word difficulty and delayed responses on previous admission -s/p keppra loading 1000mg prior to presentation -will c/w keppra 500mg qd, 750mg HS as per recent rec adjustment by neuro as per . convert to PO when able -Head CT and Brain MRI no acute pathology -EEG from 11/2017 suggestive of epileptic activity, again favors seizure with post ictal state rather than psych. -Continue Keppra, Lamictal and Vimpat loading dose currently, followed by 50 BID -Seizure precautions -Neuro checks OBDULIA -Likely secondary to hypovolemia -Hold nephrotoxic medications -Continue hydration with NS @42mls/hr -Continue to monitor BMP #CAD -c/w asa 81 #HTN -Controlled -Hold Ramipril due to OBDULIA -Continue to monitor BP #Depression -c/w zoloft #F/E/N -gentle IVF -electrolytes wnl -Thin liquids #PPX DVT: SCD's #Dispo -Full code -Tele monitoring Va Lafleur [id number] Visit type - Emergency Visit Emergency Visit: Yes ED Registration Date: 06/01/18 Care time: The patient presented to the Emergency Department on the above date and was hospitalized for further evaluation of their emergent condition. - New Patient This patient is new to me today: Yes Date on this admission: 06/02/18 - Critical Care Critical Care patient: No
[2018-06-02] MEDS: Lacosamide 200 MG/20 ML VIAL IVPB SCH (21:14)
[2018-06-02] MEDS ORDERED: RAMIPRIL 5 MG CAPSULE (FP) PO SCH (22:00)
[2018-06-03] MEDS: SODIUM CHLORIDE 1,000 ML IV SCH (06:18)
[2018-06-03 08:07] LABS: HEMATOCRIT 33.6 % (35.4-49); HEMOGLOBIN 11.4 GM/dL (11.7-16.9); MCH 30.4 pg (25.7-33.7); MCHC 34.1 g/dl (32.0-35.9); MEAN PLT VOLUME 8.3 fl (7.5-11.1); PLATELET COUNT 272 K/MM3 (134-434); RBC 3.77 M/mm3 (4.00-5.60); RDW 15.3 % (11.9-15.9); WHITE BLOOD COUNT 5.6 K/mm3 (4.0-10.0)
[2018-06-03 08:33] LABS: ANION GAP 7 MMOL/L (8-16); BLOOD UREA NITROGEN 14 mg/dL (7-18); CALCIUM 8.6 mg/dL (8.5-10.1); CHLORIDE 112 mmol/L (98-107); CO2 25 mmol/L (21-32); CREATININE 1.2 mg/dL (0.55-1.3); GLUCOSE,RANDOM 84 mg/dL (74-106); PHOSPHOROUS 2.6 mg/dL (2.5-4.9); POTASSIUM 4.6 mmol/L (3.5-5.1); SODIUM 144 mmol/L (136-145)
[2018-06-03] MEDS: Lacosamide 200 MG/20 ML VIAL IVPB SCH (10:14)
[2018-06-03] MEDS: levETIRAcetam 500 MG/5 ML INJECTION VIAL IVPB SCH (10:16)
[2018-06-03] MEDS: SERTRALINE HCL 50 MG TABLET (FP) PO SCH (10:16)
[2018-06-03] MEDS: lamoTRIgine 100 MG TABLET (FP) PO SCH (10:16)
[2018-06-03] MEDS: ASPIRIN 81 MG CHEWABLE TABLETS PO SCH (10:16)
--- NOTE | 2018-06-03 11:50 | PN ---
Physical Exam: SUBJECTIVE: Patient seen and examined, AAOx3, doing well, no complaints, pleasant. OBJECTIVE: Vital Signs Period Temp Pulse Resp BP Sys/Gong Pulse Ox Last 24 Hr 98.1 F-98.7 F 59-70 16-18 122-158/66-88 99-100 Intake & Output 05/31/18 06/01/18 06/02/18 06/03/18 23:59 23:59 23:59 23:59 Intake Total 670 650 Output Total 200 260 Balance 470 390 Weight 170 lb 170 lb GENERAL: The patient is awake, alert, and fully oriented, in no acute distress. HEAD: Normal with no signs of trauma. EYES: PERRL, extraocular movements intact, sclera anicteric, conjunctiva clear. No ptosis. ENT: Ears normal, nares patent, oropharynx clear without exudates, moist mucous membranes. NECK: Trachea midline, full range of motion, supple. LUNGS: Breath sounds equal, clear to auscultation bilaterally, no wheezes, no crackles, no accessory muscle use. HEART: Regular rate and rhythm, S1, S2 without murmur, rub or gallop. ABDOMEN: Soft, nontender, nondistended, normoactive bowel sounds, no guarding, no rebound tenderness EXTREMITIES: 2+ pulses, warm, well-perfused, no edema. NEUROLOGICAL: Cranial nerves II through XII grossly intact. Normal speech, gait not observed. AAOx3, power 5/5, sensation intact to light touch, toes downgoing, pleasant, appropriate conversation PSYCH: Normal mood, normal affect. SKIN: Warm, dry, normal turgor, no rashes or lesions noted Laboratory Results - last 24 hr 06/03/18 06/03/18 06:00 06:00 WBC 5.6 RBC 3.77 L Hgb 11.4 L Hct 33.6 L MCV 89.0 MCH 30.4 MCHC 34.1 RDW 15.3 Plt Count 272 MPV 8.3 Sodium 144 Potassium 4.6 Chloride 112 H Carbon Dioxide 25 Anion Gap 7 L BUN 14 Creatinine 1.2 Creat Clearance w eGFR 59.02 Random Glucose 84 Calcium 8.6 Phosphorus 2.6 Magnesium 2.0 Active Medications Generic Name Dose Route Start Last Admin Trade Name Freq PRN Reason Stop Dose Admin Aspirin 81 mg 06/02/18 10:00 06/03/18 10:16 Asa - PO 81 mg DAILY CONCEPCION Administration Sodium Chloride 1,000 mls @ 42 mls/hr 06/01/18 23:15 06/03/18 06:18 Normal Saline - IV 42 mls/hr ASDIR CONCEPCION Administration Lacosamide 50 mg 06/02/18 22:00 06/03/18 10:14 Vimpat Injection - IVPB 50 mg BID CONCEPCION Administration Lamotrigine 200 mg 06/02/18 00:45 06/03/18 10:16 Lamictal - PO 200 mg BID CONCEPCION Administration Levetiracetam 500 mg 06/02/18 10:45 06/03/18 10:16 Keppra Injection - IVPB 500 mg BID CONCEPCION Administration Sertraline HCl 100 mg 06/02/18 10:00 06/03/18 10:16 Zoloft - PO 100 mg BID CONCEPCION Administration MRI brain results reviewed ASSESSMENT/PLAN: 73 yom with PMHx of prostate CA (s/p radiation), HTN, depression, GERD, ADHD, sz disorder (dx 2013), alcoholism (abstinent x35 years), admitted with seizure/ AMS -Breakthrough seizure, medication non compliance vs idiopathic epilepsy -AMS, prolonged post ictal state, less likely psych -OBDULIA, suspect from hypovolumia -ADHD -HTN -Depression -GERD -Prostate Ca s/p radiation Plan: Mental status improved, Ox3, seems at baseline. On keppra/Vimpat. Discussed with Dr. Hannon, possible d/c later today once evaluated by neurology. MRI brain neg for concerns. Resume ramipril on dc. ASA/sertraline. Dispo possible d/c later today pending neurology input. Plan discussed with patient and nursing. Visit type - Emergency Visit Emergency Visit: Yes ED Registration Date: 06/01/18 Care time: The patient presented to the Emergency Department on the above date and was hospitalized for further evaluation of their emergent condition. - New Patient This patient is new to me today: No - Critical Care Critical Care patient: No - Discharge Referral Referred to [facility] Med P.C.: No
--- NOTE | 2018-06-03 14:36 | PN ---
Progress Note (short form) - Note Progress Note: 73 y/o M with PMH prostate CA (s/p radiation), HTN, depression, GERD, ADHD, sz disorder (dx 2013), who presented to the ED for aura that started at 11:30AM. As per , at this time pt became slow to respond and stared straight ahead. became worried as this continued for hours, thus she called pt's neurologist, Dr. Polanco who advised to load pt with Keppra 1000mg x 1. Afterward , pt was able to eat lunch, but became increasingly lethargic and aphasic, thus she brought pt to the ED for further evaluation. It is unclear whether pt skipped his PM doses of Keppra and lamictal. Denies fever, chills, SOB, or changes in urinary or bowel function. While in ED, pt had a sz episode where he stared straight ahead and his eyes rolled to the back of his head. Was given ativan 2mg IVP x1 which resolved the activity. Pt was dx with sz disorder in 2013. Since then, he has had four sz episodes as per - last ep in August. During his usual episodes, he stares straight ahead , has urinary incontinence and tonic-clonic movements. Dr. Polanco is his neurologist. Per , his keppra dosing was scheduled to change to 750mg in PM and 500mg in AM recently. is unsure regarding his complaince. Patient well known to me, as I've treated his for years. He appears to be at baseline. Can go home on recommended doses of medication as previously discussed. Will f/u with him as outpatient (Sherri).
[2018-06-03 15:24] VITALS: BP 134/63; PULSE 79; TEMP 98.3
--- NOTE | 2018-06-03 15:28 | DS ---
Physical Exam: SUBJECTIVE: Patient seen and examined, AAOx3, appropriate conversation, no word finding difficulty, shaking or staring noted. Eager to go home. OBJECTIVE: Vital Signs Period Temp Pulse Resp BP Sys/Gong Pulse Ox Last 24 Hr 98 F-98.7 F 65-79 16-18 122-146/63-84 99-99 PHYSICAL EXAM GENERAL: The patient is awake, alert, and fully oriented, in no acute distress. HEAD: Normal with no signs of trauma. EYES: PERRL, extraocular movements intact, sclera anicteric, conjunctiva clear. ENT: Ears normal, nares patent, oropharynx clear without exudates, moist mucous membranes. NECK: Trachea midline, full range of motion, supple. LUNGS: Breath sounds equal, clear to auscultation bilaterally, no wheezes, no crackles, no accessory muscle use. HEART: Regular rate and rhythm, S1, S2 ABDOMEN: Soft, nontender, nondistended, normoactive bowel sounds, no guarding, no rebound, no hepatosplenomegaly, no masses. EXTREMITIES: 2+ pulses, warm, well-perfused, no edema. NEUROLOGICAL: Cranial nerves II through XII grossly intact. Normal speech, gait not observed. power 5/5 sensation intact and symmetric to light touch, no word finding difficulty or shaking, finger nose test WNL PSYCH: Normal mood, normal affect. SKIN: Warm, dry, normal turgor, no rashes or lesions noted. LABS Laboratory Results - last 24 hr 06/03/18 06/03/18 06:00 06:00 WBC 5.6 RBC 3.77 L Hgb 11.4 L Hct 33.6 L MCV 89.0 MCH 30.4 MCHC 34.1 RDW 15.3 Plt Count 272 MPV 8.3 Sodium 144 Potassium 4.6 Chloride 112 H Carbon Dioxide 25 Anion Gap 7 L BUN 14 Creatinine 1.2 Creat Clearance w eGFR 59.02 Random Glucose 84 Calcium 8.6 Phosphorus 2.6 Magnesium 2.0 MRI brain MRI of the brain without intravenous contrast A noncontrast MRI of the brain was performed with multiplanar T1 and T2-weighted images including T1/T2 weighted thin coronal images of the temporal lobes were obtained. Compared to prior CT scan of the head dated 06/01/2018 There is moderate volume loss and ventricular dilatation. No mass lesion, acute infarct or intracranial hemorrhage are identified. There is a linear-like artifact in the left cerebellum on the SWI images. On the T2 weighted coronal images, the hippocampi are symmetric without gross evidence of focal atrophy or abnormal signal intensity seen. No gross cortical dysplasia is identified in the temporal lobes. Flow voids are present within the central intracranial arterial circulation. Both orbits appear unremarkable. Mild deviation of the nasal septum to the right. Minimal mucosal thickening in the ethmoid air cells and maxillary antra. No suspicious bone marrow abnormal signal is identified. Normal flow void within the intracranial venous sinuses IMPRESSION: Moderate volume loss without evidence of acute intracranial pathology. The hippocampi are symmetric without evidence of mesial temporal sclerosis. Correlate clinically to determine further evaluation and follow-up. HOSPITAL COURSE: Date of Admission:06/01/18 Date of Discharge: 06/03/18 Minutes to complete discharge: 36 Discharge Summary Reason For Visit: SEIZURE ALTERED MENTAL STATUS HYPERTENSION Current Active Problems Altered mental status (Acute) Seizure (Acute) Hospital Course: 73 yom with PMHx of prostate CA (s/p radiation), HTN, depression, GERD, ADHD, sz disorder (dx 2013), alcoholism (abstinent x35 years), admitted with seizure/ AMS. Patient was felt to have breakthrough seizure from medication non compliance vs idiopathic epilepsy. He was seen by neurology, continued on keppra 500 mg BID, lamictal 200 mg BID and loaded with vimpat 100 mg IV and started on 50 mg BID. He mental status improved and he was noted AAOx3 with no further word finding difficulty/staring or shaking during his hospital stay. He also received MRI brain that was negative for CVA or acute concerns. He was also noted with OBDULIA, that resolved with hydration. His ramipril was held , and is being resumed on discharge. He will be discharged with outpatient neurology follow up in 1 week. Condition: Good - Instructions Diet, Activity, Other Instructions: MEDICATIONS: You are started on new medication Vimpat at 50 mg twice daily per neurology recommendations. (medication information has been provided) You are provided with 1 week script, please follow up with Dr. Polanco for further directions and prescription. Continue your keppra at 500 mg twice daily Continue lamictal at prior dose. Continue other home medications as before. ACTIVITY: No driving, operating heavy machinery, being alone with children, on heights or in water FOLLOW UP: Neurologist Dr. Polanco in 1 week PCP in 1 week. If you notice new seizures, or any new concerns, please call 911 or come to ED. Referrals: Felicitas Polanco MD [Staff Physician] - Disposition: HOME - Home Medications Comprehensive Discharge Medication List: Ambulatory Orders Aspirin [ASA -] 81 mg PO DAILY 04/29/14 Sertraline HCl [Zoloft -] 100 mg PO BID 04/29/14 Lamotrigine [LaMICtal -] 200 mg PO BID 11/21/15 Ramipril 5 mg PO HS 11/21/15 Acyclovir [Zovirax -] 200 mg PO BID 11/05/17 levETIRAcetam [Keppra -] 500 mg PO BID #56 tablet 11/07/17 Cholecalciferol (Vitamin D3) [Vitamin D -] 400 unit PO DAILY 06/01/18 Lacosamide [Vimpat -] 50 mg PO BID #14 tab MDD 100 mg 06/03/18 This patient is new to me today: No Emergency Visit: Yes ED Registration Date: 06/01/18 Care time: The patient presented to the Emergency Department on the above date and was hospitalized for further evaluation of their emergent condition. Critical Care patient: No - Discharge Referral Referred to [facility] Med P.C.: No
== END 2018-06-03 18:39 | disposition home or self-care (01) | DRG 101 ==
LOC: JER 20:10 → JERBED 21:32 → J4S 06-02 12:59
PROVIDERS: ADMIT Internal Medicine; ATTEND Hospitalist
DX: G40.909 Epilepsy, unspecified, not intractable, without status epilepticus (principal); N17.9 Acute kidney failure, unspecified; N18.3 Chronic kidney disease, stage 3 (moderate); N28.9 Disorder of kidney and ureter, unspecified; I12.9 Hypertensive chronic kidney disease with stage 1 through stage 4 chronic kidney disease, or unspecified chronic kidney disease; K21.9 Gastro-esophageal reflux disease without esophagitis; I25.10 Atherosclerotic heart disease of native coronary artery without angina pectoris; F32.9 Major depressive disorder, single episode, unspecified; R41.82 Altered mental status, unspecified
CPT/HCPCS: 36415; 70450-TC; 70551-TC; 71045-TC-FY; 80048; 80053; 80177; 81003; 82465; 82550; 83605; 83718; 83721; 83735; 84100; 84443; 84478; 84484; 85025; 85027; 85610; 86850; 86900; 86901; 87040; 87086; 93005; 93010; 99285-25; J7030

== ENCOUNTER 2019-04-24 11:38 | Inpatient (IN) | payer OTHER, MEDICARE ==
--- NOTE | 2019-04-24 13:05 | PDOC ---
History of Present Illness - General Chief Complaint: Seizure Stated Complaint: Seizure Time Seen by Provider: 04/24/19 12:16 History Source: Spouse - History of Present Illness Initial Comments: 04/24/19 12:58 Patient is a 73 year old male with PMH epilepsy who presents s/p grand mal seizure. Pt was in the ER last night after an aphasic episode. Pt's at bedside to assist with history. Workup was done to r/o stroke and was negative. Dr. Polanco (pt's neurologist) was consulted, recommended observing pt in ER for 4 hours, and if no seizures, then to send home and f/u today as outpatient. Today, pt was on way to appointment with Dr. Polanco and had grand mal seizure at office. Pt LOC, urinated himself, no bowel movements, did not hit head. Dr. Polanco was not at office at the time, told pt's to bring pt to [facility] ER to admit. Pt takes lamictal 100mg BID and oxycarbamazine 300mg 6x day (1800mg total). He was previously on Keppra but d/c'ed in November 14 unwanted side effects. Pt has been compliant with new meds with no new seizures up until this point. Pt's denies recent illnesses, no alcohol or drug use (pt is recovering alcoholic x30+ years). At this time, pt is able to follow commands, but does not complete full sentences, gets confused. Oriented to person and place if prompted. Unsure of date. Neurologist: Dr. Polanco PCP: Dr. Steve Allergies: PCN 04/24/19 13:06 04/24/19 14:34 Past History - Past Medical History Allergies/Adverse Reactions: Allergies Allergy/AdvReac Type Severity Reaction Status Date / Time Penicillins Allergy Intermediate Rash Verified 04/23/19 19:53 Home Medications: Ambulatory Orders Aspirin [ASA -] 81 mg PO DAILY 04/29/14 Sertraline HCl [Zoloft -] 100 mg PO BID 04/29/14 Lamotrigine [LaMICtal -] 200 mg PO BID 11/21/15 Ramipril 5 mg PO HS 11/21/15 Acyclovir [Zovirax -] 200 mg PO BID 11/05/17 levETIRAcetam [Keppra -] 500 mg PO BID #56 tablet 11/07/17 Cholecalciferol (Vitamin D3) [Vitamin D -] 400 unit PO DAILY 06/01/18 Lacosamide [Vimpat -] 50 mg PO BID #14 tab MDD 100 mg 06/03/18 Anemia: No Asthma: No Cancer: Yes (radiation for prostate ? 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 PRESENTLY IN A) Diabetes: (STUDY REGARDING MEMORY ISSUES @ [facility]) GI Disorders: Yes (GERD) Disorders: No HTN: Yes Hypercholesterolemia: No Liver Disease: No Psychiatric Problems: Yes (DEPRESSION) Seizures: Yes (SEIZURE DISORDER-ON LAMICTAL NOW-LAST SEIZURE 04/2014) Thyroid Disease: No - Surgical History Abdominal Surgery: Yes (hernia sx at age 23) Appendectomy: No Cardiac Surgery: No Cholecystectomy: No Lung Surgery: No Neurologic Surgery: No Orthopedic Surgery: No - Immunization History Immunization Up to Date: Yes - Psycho Social/Smoking Cessation Hx Smoking History: Never smoked Have you smoked in the past 12 months: No Number of Cigarettes Smoked Daily: 15 If you are a former smoker, when did you quit?: SMOKES E-CIGARETTES 'Breaking Loose' booklet given: 06/02/18 Hx Alcohol Use: No Drug/Substance Use Hx: No Substance Use Type: None Hx Substance Use Treatment: No Review of Systems - Review of Systems Able to Perform ROS?: No (Confused and aphasic) Constitutional: No: Symptoms Reported, See HPI, Chills, Diaphoresis, Fever, Loss of Appetite, Malaise, Night Sweats, Weakness, Weight Stable, Unintentional Wgt. Loss, Unexplained wgt Loss, Other HEENTM: No: Symptoms Reported, See HPI, Eye Pain, Blurred Vision, Tearing, Recent change in vision, Double Vision, Cataracts, Ear Pain, Ocular Prothesis, Ear Discharge, Nose Pain, Nose Congestion, Tinnitus, Nose Bleeding, Hearing Loss , Throat Pain, Throat Swelling, Mouth Pain, Dental Problems, Difficulty Swallowing, Mouth Swelling, Other Respiratory: No: Symptoms reported, See HPI, Cough, Orthopnea, Shortness of Breath, SOB with Exertion, SOB at Rest, Stridor, Wheezing, Productive cough, Hemoptysis, Other Cardiac (ROS): No: Symptoms Reported, See HPI, Chest Pain, Edema, Irregular Heart Rate, Lightheadedness, Palpitations, Syncope, Chest Tightness, Other ABD/GI: No: Symptoms Reported, See HPI, Abdominal Distended, Abd. Pain w/ defecation, Blood Streaked Bowels, Constipated, Diarrhea, Difficulty Swallowing , Nausea, Poor Appetite, Poor Fluid Intake, Rectal Bleeding, Vomiting, Indigestion, Abdominal cramping, Tarry Stools, Other : No: Symptoms Reported, See HPI, Burning, Dysuria, Discharge, Frequency, Flank Pain, Hematuria, Incontinence, Pain, Urgency, Testicular Mass, Testicular Swelling, Lesions, Testicular Pain, Other Musculoskeletal: No: Symptoms Reported, See HPI, Back Pain, Gout, Joint Pain, Joint Swelling, Muscle Pain, Muscle Weakness, Neck Pain, Joint Stiffness, Other Integumentary: No: Symptoms Reported, See HPI, Bruising, Change in Color, Change in Hair/Nails, Dryness, Erythema, Flushing, Lesions, Lumps, Pallor, Pruritus, Rash, Sweating, Other Neurological: Yes: Seizure Psychiatric: No: Anxiety, Depression, Frequent Crying, Stressors, Sleep Pattern Change, Emotional Problems, Mood Swings, Change in Appetite, Other *Physical Exam - Vital Signs Last Vital Signs Temp Pulse Resp BP Pulse Ox 98.7 F 64 18 173/92 H 96 04/24/19 12:08 04/24/19 12:08 04/24/19 12:08 04/24/19 12:08 04/24/19 12:08 - Physical Exam General Appearance: Yes: Nourished, Appropriately Dressed. No: Apparent Distress HEENT: positive: EOMI, MARIO, Normal Voice, Pharynx Normal Neck: positive: Normal Thyroid, Supple Respiratory/Chest: positive: Lungs Clear, Normal Breath Sounds. negative: Respiratory Distress Cardiovascular: positive: Regular Rhythm, Regular Rate, S1, S2. negative: Edema , JVD, Murmur Vascular Pulses: Dorsalis-Pedis (R): 2+, Doralis-Pedis (L): 2+ Gastrointestinal/Abdominal: positive: Normal Bowel Sounds, Soft. negative: Tender Neurologic: positive: cook cold meat II-XII NML intact, Alert, Confused, Disoriented. negative: Fully Oriented, Normal Response, Motor Strength 5/5 (Strength 3/5, likely limited to difficulty following commands) Deep Tendon Reflexes: Ankle (L): 2+, Ankle (R): 2+, Knee (L): 2+, Knee (R): 2+, Bicep (L): 2+, Bicep (R): 2+, Tricep (L): 2+, Tricep (R): 2+ ED Treatment Course - LABORATORY CBC & Chemistry Diagram: 04/24/19 13:20 04/24/19 13:20 Medical Decision Making - Medical Decision Making 04/24/19 13:[address] Polanco to discuss plan, will likely admit >> CBC, CMP, CPK >> Give IVF NS 04/24/19 13:[address] Polanco. Believes pt is not compliant with medications. Due to having 2 seizures in past 24 hours, will admit for further obs/evaluation. No need for further imaging at this time. Pt's gave 300mg of pt's oxcarbazapine at 12:30pm. Gave an additional 300mg around 1:45pm as per Dr. Polanco's request. 04/24/19 15:27 04/24/19 15:28 Discharge - Discharge Information Problems reviewed: Yes Clinical Impression/Diagnosis: Grand mal seizure - Admission Yes - Follow up/Referral Referrals: Jose Martin Steve MD [Primary Care Provider] - Felicitas Polanco MD [Staff Physician] - - Patient Discharge Instructions - Post Discharge Activity
[2019-04-24] MEDS ORDERED: SODIUM CHLORIDE 0.9% 1000 ML INFUS.BAG IV ONE (13:11)
--- NOTE | 2019-04-24 13:27 | PDOC ---
Attending Attestation - Resident Resident Name: Nery Benavidez - ED Attending Attestation I have performed the following: I have examined & evaluated the patient, The case was reviewed & discussed with the resident, I agree w/resident's findings & plan - HPI HPI: 04/24/19 13:22 73y/o M h/o seizures maintained on seizure meds (neuro: Dr. Polanco) with good compliance, seen here yesterday for episode of aphasia considered to be post- ictal after negative CT and monitoring in the ED. D/C yesterday to f/u with Dr. Polanco today, but en route had witnessed GTC seizure with urinary incontinence. No head injury, diverted to ED after speaking with Dr. Polanco. No recent illnesses or alcohol - Physicial Exam PE: 04/24/19 13:27 afebrile, bp slightly elevated atraumatic alert but still intermittently aphasic, with lucid moments where he is appropriately verbal without dysarthria s1s2 rrr, ctab, abd benign 5/5 motor x4 extremities - Medical Decision Making 04/24/19 13:28 73-year-old male with history of seizures with second ED visit in 2 days for a aphasia and witnessed seizure today. Patient still likely had a aphasia as postictal presentation yesterday, today with witnessed generalized tonic-clonic seizure and subsequent a aphasia, which is typical for him. TIA/CVA remains less likely, remaining deficit is isolated to speech without motor involvement. Sent to ED, no evidence of infectious etiology, will check labs and provide IV fluid hydration Dr. Polanco aware of patient and and route to evaluate him in the emergency department At this time, no indication for emergent repeat imaging given no new focal deficit. 04/24/19 15:18 labs wnl, Na 131. remains intermittently aphasic, discussed with Dr. Polanco - this is typical of pt 's post-ictal state. no other deficit. admit, Dr. Polanco to see. Heart Score/ECG Review #1 ECG reviewed & interpreted by me at: 14:44 General ECG Interpretation: Sinus Rhythm, Normal Rate (70), Normal Intervals ( qtc 408), No acute ischemic changes
[2019-04-24 13:33] LABS: BASO % 0.5 % (0-2.0); EOS % 0.5 % (0-4.5); HEMATOCRIT 43.2 % (35.4-49); HEMOGLOBIN 14.4 GM/dL (11.7-16.9); LYMPH % 8.4 % (8-40); MCH 29.9 pg (25.7-33.7); MCHC 33.4 g/dl (32.0-35.9); MEAN CELL VOLUME 89.6 fl (80-96); MEAN PLT VOLUME 8.2 fl (7.5-11.1); MONO % 5.4 % (3.8-10.2); NEUT % 85.2 % (42.8-82.8); PLATELET COUNT 190 K/MM3 (134-434); RBC 4.81 M/mm3 (4.00-5.60); WHITE BLOOD COUNT 6.9 K/mm3 (4.0-10.0)
[2019-04-24] MEDS ORDERED: OXcarbazepine 300 MG/5 ML UNIT DOSE CUPS PO ONE (13:45)
[2019-04-24 14:04] LABS: ALBUMIN 3.8 g/dl (3.4-5.0); BILIRUBIN,TOTAL 0.2 mg/dL (0.2-1); BLOOD UREA NITROGEN 11.1 mg/dL (7-18); CALCIUM 9.1 mg/dL (8.5-10.1); CREATININE 1.1 mg/dL (0.55-1.3); POTASSIUM 4.3 mmol/L (3.5-5.1); TOT PROT 6.7 g/dl (6.4-8.2)
--- NOTE | 2019-04-24 15:48 | PN ---
Teaching Attending Note Name of Resident: Kinsey Mtz ATTENDING PHYSICIAN STATEMENT I saw and evaluated the patient. I reviewed the resident's note and discussed the case with the resident. I agree with the resident's findings and plan as documented. SUBJECTIVE: OBJECTIVE: ASSESSMENT AND PLAN:
[2019-04-24] MEDS ORDERED: LORazepam 2 MG/ML SDV VIAL ONE (17:04)
--- NOTE | 2019-04-24 18:56 | HP ---
<Kinsey Mtz - Last Filed: 04/24/19 19:42> Hospitalist Medicine Admission On examination, pt aphasic. Unable to reach , thus hx per ED: 73 year old male with PMH epilepsy who presents s/p grand mal seizure. Pt was in the ED last night after an aphasic episode. Pt's was at bedside (earlier ) to assist with history. Workup was done to r/o stroke and was negative. Dr. Polanco (pt's neurologist) was consulted, recommended pt observation in ER for 4 hours, and if no seizures, then to send home and f/u today as outpatient. Today , pt was on way to appointment with Dr. Polanco and had grand mal seizure at office. Pt experienced LOC and urinary incontinence, however was without head trauma. Pt's was told to bring pt to ED. Pt takes lamictal 100mg BID and oxycarbamazine 300mg 6x day (1800mg total). He was previously on Keppra but d/c'ed in November 14 adverse effects. Pt has been compliant with new meds with no new seizures up until this point. Pt's denies recent illnesses, no alcohol or drug use (pt is recovering alcoholic x30 + years). At this time, pt is able to follow commands, but does not complete full sentences, gets confused. Oriented to person and place if prompted. Unsure of date. HOME MEDICATIONS: Home Medications Medication Instructions Recorded Aspirin [ASA -] 81 mg PO DAILY 04/29/14 Sertraline HCl [Zoloft -] 100 mg PO BID 04/29/14 Lamotrigine [LaMICtal -] 200 mg PO BID 11/21/15 Ramipril 5 mg PO HS 11/21/15 Acyclovir [Zovirax -] 200 mg PO BID 11/05/17 levETIRAcetam [Keppra -] 500 mg PO BID #56 tablet 11/07/17 Cholecalciferol (Vitamin D3) 400 unit PO DAILY 06/01/18 [Vitamin D -] Lacosamide [Vimpat -] 50 mg PO BID #14 tab MDD 100 mg 06/03/18 PHYSICAL EXAMINATION Vital Signs - 24 hr 04/24/19 04/24/19 12:08 16:50 Temperature 98.7 F Pulse Rate 64 Pulse Rate [ 79 Right Radial] Respiratory 18 20 Rate Blood Pressure 173/92 H Blood Pressure 182/109 H [Right Arm] O2 Sat by Pulse 96 96 Oximetry (%) General: resting in bed, in NAD HEENT: NCAT neck: supple Cardio: S1, S2 RRR. no r/m/g Pulm: CTA b/l abdomen: nontender, nondistended neuro: +aphasic. sensation intact. expressive art therapist 2-9 intact. deficits in 10-12. unable to shrug shoulders, weak strength with SCM b/l LE: 2+ pulses, no edema Laboratory Results - last 24 hr 04/24/19 04/24/19 13:20 13:20 WBC 6.9 RBC 4.81 Hgb 14.4 Hct 43.2 MCV 89.6 MCH 29.9 MCHC 33.4 RDW 23.0 H Plt Count 190 MPV 8.2 Absolute Neuts (auto) 5.9 Neutrophils % 85.2 H Lymphocytes % 8.4 D Monocytes % 5.4 Eosinophils % 0.5 Basophils % 0.5 Nucleated RBC % 0 Sodium 131 L Potassium 4.3 Chloride 99 Carbon Dioxide 25 Anion Gap 7 L BUN 11.1 Creatinine 1.1 Est GFR (CKD-EPI)AfAm 75.71 Est GFR (CKD-EPI)NonAf 65.32 Random Glucose 98 Calcium 9.1 Total Bilirubin 0.2 AST 14 ALT 20 Alkaline Phosphatase 116 Creatine Kinase 76 Total Protein 6.7 Albumin 3.8 ASSESSMENT/PLAN: 73 year old male with PMH epilepsy who presents s/p grand mal seizure. Pt was in the ED last night after an aphasic episode. #Grand mal seizure -may have been 2/2 medication noncompliance, will need collateral hx from unable to reach -at home, pt on lamictal 100mg BID, oxycarbamezpine 300mg 6x day (1800mg total) -ED d/w neuro: received ox 300mg prior to ED, and 300mg in ED per neuro recs -await further recs from neuro. will also need to determine whether EEG needed -meanwhile, will c/t vimpat, lamictal -ativan PRN for sz activity -NPO, S/S -sz precautions -Neuro consult: Dr. Polanco -f/u prolactin, TSH -f/u Brain MRI as with aphasia, neuro deficits -tele monitoring #Hx herpes -f/u HSV testing -c/w acyclovir #HTN -c/w ramipril, may need to increase dose if does not respond #F/E/N no IVF required at this time continue to follow lytes NPO until S/S; aphasic #PPX DVT: SCD's, hep BID #Dispo admit to tele Visit type - Emergency Visit Emergency Visit: Yes ED Registration Date: 04/24/19 Care time: The patient presented to the Emergency Department on the above date and was hospitalized for further evaluation of their emergent condition. - New Patient This patient is new to me today: Yes Date on this admission: 04/24/19 - Critical Care Critical Care patient: No <VeronicastevenMihai mclaughlin - Last Filed: 04/25/19 04:16> CHIEF COMPLAINT: PCP: HISTORY OF PRESENT ILLNESS: ER course was notable for: (1) (2) (3) Recent Travel: PAST MEDICAL HISTORY: PAST SURGICAL HISTORY: Social History: Smoking: Alcohol: Drugs: Allergies Penicillins Allergy (Intermediate, Verified 04/23/19 19:53) Rash HOME MEDICATIONS: Home Medications Medication Instructions Recorded Aspirin [ASA -] 81 mg PO DAILY 04/29/14 Sertraline HCl [Zoloft -] 100 mg PO BID 04/29/14 Lamotrigine [LaMICtal -] 200 mg PO BID 11/21/15 Ramipril 5 mg PO HS 11/21/15 Acyclovir [Zovirax -] 200 mg PO BID 11/05/17 levETIRAcetam [Keppra -] 500 mg PO BID #56 tablet 11/07/17 Cholecalciferol (Vitamin D3) 400 unit PO DAILY 06/01/18 [Vitamin D -] Lacosamide [Vimpat -] 50 mg PO BID #14 tab MDD 100 mg 06/03/18 REVIEW OF SYSTEMS CONSTITUTIONAL: Absent: fever, chills, diaphoresis, generalized weakness, malaise, loss of appetite, weight change HEENT: Absent: rhinorrhea, nasal congestion, throat pain, throat swelling, difficulty swallowing, mouth swelling, ear pain, eye pain, visual changes CARDIOVASCULAR: Absent: chest pain, syncope, palpitations, irregular heart rate, lightheadedness , peripheral edema RESPIRATORY: Absent: cough, shortness of breath, dyspnea with exertion, orthopnea, wheezing, stridor, hemoptysis GASTROINTESTINAL: Absent: abdominal pain, abdominal distension, nausea, vomiting, diarrhea, constipation, melena, hematochezia GENITOURINARY: Absent: dysuria, frequency, urgency, hesitancy, hematuria, flank pain, genital pain MUSCULOSKELETAL: Absent: myalgia, arthralgia, joint swelling, back pain, neck pain SKIN: Absent: rash, itching, pallor HEMATOLOGIC/IMMUNOLOGIC: Absent: easy bleeding, easy bruising, lymphadenopathy, frequent infections ENDOCRINE: Absent: unexplained weight gain, unexplained weight loss, heat intolerance, cold intolerance NEUROLOGIC: Absent: headache, focal weakness or paresthesias, dizziness, unsteady gait, seizure, mental status changes, bladder or bowel incontinence PSYCHIATRIC: Absent: anxiety, depression, suicidal or homicidal ideation, hallucinations. PHYSICAL EXAMINATION Vital Signs - 24 hr 04/24/19 04/24/19 04/24/19 12:08 16:50 20:47 Temperature 98.7 F 98.3 F Pulse Rate 64 67 Pulse Rate [ 79 Right Radial] Respiratory 18 20 20 Rate Blood Pressure 173/92 H 149/88 Blood Pressure 182/109 H [Right Arm] O2 Sat by Pulse 96 96 98 Oximetry (%) 04/24/19 04/25/19 21:00 02:00 Temperature 98 F Pulse Rate 66 Pulse Rate [ Right Radial] Respiratory 20 18 Rate Blood Pressure 127/77 Blood Pressure [Right Arm] O2 Sat by Pulse 98 Oximetry (%) GENERAL: Awake, alert, and fully oriented, in no acute distress. HEAD: Normal with no signs of trauma. EYES: Pupils equal, round and reactive to light, extraocular movements intact, sclera anicteric, conjunctiva clear. No lid lag. EARS, NOSE, THROAT: Ears normal, nares patent, oropharynx clear without exudates. Moist mucous membranes. NECK: Normal range of motion, supple without lymphadenopathy, JVD, or masses. LUNGS: Breath sounds equal, clear to auscultation bilaterally. No wheezes, and no crackles. No accessory muscle use. HEART: Regular rate and rhythm, normal S1 and S2 without murmur, rub or gallop. ABDOMEN: Soft, nontender, not distended, normoactive bowel sounds, no guarding, no rebound, no masses. No hepatomegaly or splenomegaly. MUSCULOSKELETAL: Normal range of motion at all joints. No bony deformities or tenderness. No CVA tenderness. UPPER EXTREMITIES: 2+ pulses, warm, well-perfused. No cyanosis. No clubbing. No peripheral edema. LOWER EXTREMITIES: 2+ pulses, warm, well-perfused. No calf tenderness. No peripheral edema. NEUROLOGICAL: Cranial nerves II-XII intact. Normal speech. Normal gait. PSYCHIATRIC: Cooperative. Good eye contact. Appropriate mood and affect. SKIN: Warm, dry, normal turgor, no rashes or lesions noted, normal capillary refill. Laboratory Results - last 24 hr 04/24/19 04/24/19 04/24/19 13:20 13:20 21:40 WBC 6.9 RBC 4.81 Hgb 14.4 Hct 43.2 MCV 89.6 MCH 29.9 MCHC 33.4 RDW 23.0 H Plt Count 190 MPV 8.2 Absolute Neuts (auto) 5.9 Neutrophils % 85.2 H Lymphocytes % 8.4 D Monocytes % 5.4 Eosinophils % 0.5 Basophils % 0.5 Nucleated RBC % 0 Sodium 131 L Potassium 4.3 Chloride 99 Carbon Dioxide 25 Anion Gap 7 L BUN 11.1 Creatinine 1.1 Est GFR (CKD-EPI)AfAm 75.71 Est GFR (CKD-EPI)NonAf 65.32 Random Glucose 98 Calcium 9.1 Total Bilirubin 0.2 AST 14 L ALT 20 Alkaline Phosphatase 116 Creatine Kinase 76 Total Protein 6.7 Albumin 3.8 Urine Color Yellow Urine Appearance Cloudy Urine pH 8.0 D Ur Specific Gallant 1.018 Urine Protein Negative Urine Glucose (UA) Negative Urine Ketones Negative Urine Blood Negative Urine Nitrite Negative Urine Bilirubin Negative Urine Urobilinogen 0.2 Ur Leukocyte Esterase Negative ASSESSMENT/PLAN: ATTENDING PHYSICIAN STATEMENT I saw and evaluated the patient. I reviewed the resident's note and discussed the case with the resident. I agree with the resident's findings and plan as documented. SUBJECTIVE: OBJECTIVE: ASSESSMENT AND PLAN:
[2019-04-24] MEDS ORDERED: LORazepam 2 MG/ML SDV VIAL IVPUSH PRN (19:37)
--- NOTE | 2019-04-24 19:53 | CON.NEURO ---
Consult Consult Specialty:: NEUROLOGY-PAVAN PAULINO - History of Present Illness History of Present Illness: 73 year old male with PMH epilepsy who presents s/p grand mal seizure. Pt was in the ED last night after an aphasic episode. Pt's was at bedside (earlier ) to assist with history. Workup was done to r/o stroke and was negative. Dr. Polanco (pt's neurologist) was consulted, recommended pt observation in ER for 4 hours, and if no seizures, then to send home and f/u today as outpatient. Today , pt was on way to appointment with Dr. Polanco and had grand mal seizure at office. Pt experienced LOC and urinary incontinence, however was without head trauma. Pt's was told to bring pt to ED. Pt takes lamictal 100mg BID and oxycarbamazine 300mg 6x day (1800mg total). He was previously on Keppra but d/c'ed in November 14 adverse effects. Pt has been compliant with new meds with no new seizures up until this point. Pt's denies recent illnesses, no alcohol or drug use (pt is recovering alcoholic x30 + years). At this time, pt is able to follow commands, but does not complete full sentences, gets confused. Oriented to person and place if prompted. Unsure of date. -Pts seizuresare always partial- present with Brocas aphasia that can last for up to 48 hours, this am had similar partial sz. in my office but with urinary incont. In ER today aphasia remitted completely but now he is again having word finding difficulty. At home is compliant with meds, Oxvcarb total of 1800mg daily and lamictal 100mg [id number] bipolar d/o).CT head last night reported without acute abn. 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: Yes: Alzheimer's, Seizure (Initially presented in 2010- thought to be due to Bupropion-discontinued) Cardio/Vascular: Yes: CAD Psych: Yes: Anxiety, Depression Musculoskeletal: Yes: Osteoarthritis - Past Surgical History Past Surgical History: Yes: None - Alcohol/Substance Use Hx Alcohol Use: No - Smoking History Smoking history: Never smoked Have you smoked in the past 12 months: No Aproximately how many cigarettes per day: 15 If you are a former smoker, when did you quit?: SMOKES E-CIGARETTES - Social History Usual Living Arrangement: Alone ADL: Independent Occupation: retired History of Recent Travel: No Home Medications - Allergies Allergies/Adverse Reactions: Allergies Allergy/AdvReac Type Severity Reaction Status Date / Time Penicillins Allergy Intermediate Rash Verified 04/23/19 19:53 - Home Medications Home Medications: Ambulatory Orders Aspirin [ASA -] 81 mg PO DAILY 04/29/14 Sertraline HCl [Zoloft -] 100 mg PO BID 04/29/14 Lamotrigine [LaMICtal -] 200 mg PO BID 11/21/15 Ramipril 5 mg PO HS 11/21/15 Acyclovir [Zovirax -] 200 mg PO BID 11/05/17 levETIRAcetam [Keppra -] 500 mg PO BID #56 tablet 11/07/17 Cholecalciferol (Vitamin D3) [Vitamin D -] 400 unit PO DAILY 06/01/18 Lacosamide [Vimpat -] 50 mg PO BID #14 tab MDD 100 mg 06/03/18 Physical Exam-Neuro Vital Signs: Vital Signs Temperature 98.7 F 04/24/19 12:08 Pulse Rate 79 04/24/19 16:50 Respiratory Rate 20 04/24/19 16:50 Blood Pressure 182/109 H 04/24/19 16:50 O2 Sat by Pulse Oximetry (%) 96 04/24/19 16:50 Labs: CBC, BMP 04/24/19 13:20 04/24/19 13:20 - Neuro Exam Level Of Consciousness: Yes: Alert, Oriented to Person, Oriented to Place Eyes: Yes: MARIO Speech: Broca's Aphasia (+ anomia and word finding difficulty, non-fluent speech ) Cranial Nerves II-XII Intact: Yes DTR's: 1+ Left Achilles, 1+ Right Achilles, 2+ Left Bicep, 2+ Right Bicep, 2+ Left Tricep, 2+ Right Tricep, 2+ Left Brachioradialis, 2+ Right Brachioradialis Babinski: Present (+ bilat upgoing toes) Motor Strength: 5/5: Left Arm, Right Arm, Left Leg, Right Leg Gait: Deferred, Other Assessment/Plan Pt. with breakthrough partial sz. ?? sleep deprivation as trigger. He appears to have recurrent partial sz, his typical with aphasia. Plan. Cont Oxcarb 300mg q3hrs total of 6 doses daily while awake , load with Fosphenytoin x1 now 1000mg than cont with dilantin 100mg tid starting tomorrow. Increase lamictal to 125mg bid.EEG Fly Polanco MD
[2019-04-24 21:15] VITALS: BMI 26.0
[2019-04-24] MEDS ORDERED: LACOSAMIDE 50 MG TABLET PO SCH (22:00)
[2019-04-24] MEDS ORDERED: lamoTRIgine 100 MG TABLET (FP) PO SCH (22:00)
[2019-04-24] MEDS ORDERED: FOSPHENYTOIN SODIUM 1,000 MG in SODIUM CHLORIDE 100 ML IVPB ONE (22:15)
[2019-04-24] MEDS: RAMIPRIL 5 MG CAPSULE (FP) PO SCH (23:19)
[2019-04-24] MEDS: HEPARIN NA (PORCINE) 5,000 UNITS/ML 1ML VIAL SQ SCH (23:20)
[2019-04-24] MEDS: SERTRALINE HCL 50 MG TABLET (FP) PO SCH (23:24)
[2019-04-25] MEDS: PHENYTOIN NA EXTENDED 100 MG CAPSULE (FP) PO SCH ×4 (00:04→21:51)
[2019-04-25] MEDS: lamoTRIgine 100 MG TABLET (FP) PO SCH ×3 (00:05→21:52)
[2019-04-25] MEDS: ACYCLOVIR 200 MG/5 ML LIQUID PO SCH ×3 (00:05→21:51)
[2019-04-25] MEDS: OXcarbazepine 300 MG TABLET (UD) PO SCH ×7 (00:06→21:52)
[2019-04-25 00:26] LABS: URINE APPEARANCE CLOUDY; URINE BILIRUBIN NEGATIVE (NEGATIVE); URINE COLOR YELLOW; URINE GLUCOSE (UA) NEGATIVE (NEGATIVE); URINE KETONE NEGATIVE (NEGATIVE); URINE LEUK ESTERASE NEGATIVE (NEGATIVE); URINE NITRITE NEGATIVE (NEGATIVE); URINE PROTEIN NEGATIVE (NEGATIVE); URINE UROBILINOGEN 0.2 mg/dL (0.2-1.0)
[2019-04-25 04:42] LABS: N-TERMINAL BNP 217.8 pg/ml (5-450)
[2019-04-25] MEDS ORDERED: PT OWN MED DRAWER 7, Y5N ONE ×2 (05:51→08:26)
[2019-04-25 07:53] LABS: BASO % 0.8 % (0-2.0); EOS % 1.4 % (0-4.5); HEMATOCRIT 40.3 % (35.4-49); HEMOGLOBIN 13.7 GM/dL (11.7-16.9); LYMPH % 17.4 % (8-40); MCH 30.1 pg (25.7-33.7); MEAN CELL VOLUME 88.5 fl (80-96); MEAN PLT VOLUME 7.9 fl (7.5-11.1); NEUT % 71.4 % (42.8-82.8); PLATELET COUNT 192 K/MM3 (134-434); RBC 4.55 M/mm3 (4.00-5.60); RDW 23.1 % (11.9-15.9); WHITE BLOOD COUNT 4.6 K/mm3 (4.0-10.0)
[2019-04-25 07:54] LABS: INR 0.99 (0.83-1.09); PROTHROMBIN TIME (PATIENT) 11.7 SEC (9.7-13.0)
[2019-04-25 08:38] LABS: ALBUMIN 3.7 g/dl (3.4-5.0); BILIRUBIN,TOTAL 0.3 mg/dL (0.2-1); BLOOD UREA NITROGEN 10.5 mg/dL (7-18); CALCIUM 9.1 mg/dL (8.5-10.1); CREATININE 1.1 mg/dL (0.55-1.3); MAGNESIUM 1.9 mg/dL (1.8-2.4); POTASSIUM 4.3 mmol/L (3.5-5.1); TOT PROT 6.4 g/dl (6.4-8.2)
[2019-04-25] MEDS: SERTRALINE HCL 50 MG TABLET (FP) PO SCH ×2 (09:33→21:51)
[2019-04-25] MEDS: ASPIRIN 81 MG CHEWABLE TABLETS PO SCH (09:33)
[2019-04-25] MEDS: CHOLECALCIFEROL (VIT D3) 400 UNIT (10 MCG) TABLET PO SCH (09:34)
[2019-04-25] MEDS: HEPARIN NA (PORCINE) 5,000 UNITS/ML 1ML VIAL SQ SCH ×2 (09:35→21:52)
[2019-04-25] MEDS ORDERED: lamoTRIgine 25 MG TABLET PO SCH (10:00)
--- NOTE | 2019-04-25 10:25 | EKG ---
Test Reason : Blood Pressure : / mmHG Vent. Rate : 070 BPM Atrial Rate : 070 BPM P-R Int : 188 ms QRS Dur : 092 ms QT Int : 378 ms P-R-T Axes : 045 031 057 degrees QTc Int : 408 ms POOR DATA QUALITY, INTERPRETATION MAY BE ADVERSELY AFFECTED NORMAL SINUS RHYTHM NORMAL ECG WHEN COMPARED WITH ECG OF 23-APR-2019 20:55, NO SIGNIFICANT CHANGE WAS FOUND Confirmed by JUANA PAULION, LAWSON ([id number]) on 04/25/2019 10:25:32 AM Referred By: Confirmed By:LAWSON ARIAS MD
--- NOTE | 2019-04-25 10:26 | PN ---
Progress Note (short form) - Note Progress Note: EEG pending MRI pending DC 2mo <Mihai Hunter - Last Filed: 04/25/19 14:06> - Note Progress Note: Hospitalist Medicine Pt talkative this AM. , Carlota to visit today. Denies complaint. Seen by neuro yesterday, loaded w/ fosphenytoin. no sz activity overnight Vitals 04/25/19 06:01 Temperature 97.6 F Pulse Rate 63 Respiratory 18 Rate Blood Pressure 112/65 General: resting in bed, in NAD HEENT: NCAT neck: supple Cardio: S1, S2 RRR. no r/m/g Pulm: CTA b/l abdomen: nontender, nondistended neuro: +improved aphasia. sensation intact. buffet server 2-9 intact. deficits in 10-12. unable to shrug shoulders, weak strength with SCM b/l. +dysmetria. no pronator drift. sensation intact. LE: 2+ pulses, no edema Laboratory Tests 04/25/19 04/25/19 04/25/19 03:45 03:45 07:10 WBC 4.6 Hgb 13.7 Hct 40.3 Plt Count 192 PT with INR INR Sodium Potassium Chloride Carbon Dioxide Anion Gap BUN Creatinine Est GFR (CKD-EPI)AfAm Calcium Magnesium Total Bilirubin AST Total Protein Albumin TSH 4.18 H D Prolactin Pending 04/25/19 04/25/19 07:10 07:10 WBC Hgb Hct Plt Count PT with INR 11.70 INR 0.99 Sodium 131 L Potassium 4.3 Chloride 98 Carbon Dioxide 26 Anion Gap 7 L BUN 10.5 Creatinine 1.1 Est GFR (CKD-EPI)AfAm 75.71 Calcium 9.1 Magnesium 1.9 Total Bilirubin 0.3 AST 13 L Total Protein 6.4 Albumin 3.7 TSH Prolactin ASSESSMENT/PLAN: 73 year old male with PMH epilepsy who presents s/p grand mal seizure. Pt was in the ED last night after an aphasic episode. #Breakthru partial seizure likely 2/2 sleep deprivation -at home, pt on lamictal 100mg BID, oxycarbamezpine 300mg 6x day (1800mg total) -ED d/w neuro: received ox 300mg prior to ED, and 300mg in ED per neuro recs -on floor, seen by neuro: loaded w/ fosphenytoin, c/w dilantin 100mg TID, lamictal increased to 125mg BID, oxcarbazepine 300mg 6x/day -vimpat was d/c -f/u EEG -f/u brain MRI -ativan PRN for sz activity -sz precautions -Neuro consult: Dr. Polanco -f/u prolactin, TSH elevated -tele monitoring #Hyponatremia, likely chronic 2/2 AEs -c/t monitor; asymptomatic -should not overcorrect, can give IV NS if needed #Hx herpes -f/u HSV testing -c/w acyclovir #HTN- controlled -c/w ramipril #F/E/N no IVF required at this time continue to follow lytes reg diet, thin liquids per S/S #PPX DVT: SCD's, hep BID #Dispo monitoring on tele pending EEG, brain MRI. anticipate d/c once complete <Kinsey Mtz - Last Filed: 04/25/19 16:57>
--- NOTE | 2019-04-25 10:28 | CONSULT ---
Admitting History and Physical - Primary Care Physician PCP: iMhai Hunter - Admission History of Present Illness: -Pt admitted with seizure with aphasia, which has spontaneously improved. 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: Alzheimer's, Seizure (Initially presented in 2010- thought to be due to Bupropion-discontinued) Cardiovascular: Yes: CAD Psych: Yes: Anxiety, Depression Musculoskeletal: Yes: Osteoarthritis - Past Surgical History Past Surgical History: Yes: None - Advance Directives Advance Directives: Yes: Health Care Proxy - Smoking History Smoking history: Never smoked Have you smoked in the past 12 months: No Aproximately how many cigarettes per day: 15 If you are a former smoker, when did you quit?: SMOKES E-CIGARETTES - Alcohol/Substance Use Hx Alcohol Use: No - Social History ADL: Independent Occupation: retired History of Recent Travel: No History - Admission Reason For Visit: EPILEPSY - Diagnostics CT Scan: Report Reviewed - General Mental Status: Alert and Oriented, Awake and Alert, Able to Follow Commands, Forgetful Attention: Mild Impairment Ability to Follow Directions: Fair Head/Neck Control: Good - Hearing Hearing: Functional Hearing: Normal Speech Evaluation - Communication Primary Language: HEBREW Communication: Yes: Simple Responses - Speech Production Able to Make Needs Known: Yes: WNL Intelligibility: Yes: WNL - Speech Characteristics Voice Loudness: Normal Voice Pitch: Yes: Normal Voice Phonatory-based Quality: Yes: Normal Speech Pattern: Normal Speech Clarity: < 100% Nasal Resonance: Normal Articulation: Yes: Precise - Language/Auditory Comprehension Follows: Yes: 1 Stage Simple Commands Observation: Able to respond to yes/no queries: Yes, Yes/No Confusion: No, Comprehends Conversational Speech: Yes, Benefits from Repetiton: Yes - Language/Verbal Expression Able to Respond to Simple Queries: Yes: WNL Able to Communicate Wants and Needs: Yes: WNL - Swallow Evaluation/Bedside Assessment Current Nutritional Intake: NPO Oral Secretions: Yes: WFL Dentition: Yes: Adequate Facial Symmetry at Rest: Symmetrical Facial Symmetry on Retraction: Symmetrical Facial Movement: Controlled Sensation: Normal Against Resistance Opening: Normal Against Resistance Closing: Normal Pucker Lips: Normal Smile: Normal Lingual Movement: Normal, Symmetric Lingual Speed of Movement: Normal Lingual Movement Strgth Against Opposition: Normal Lingual Movement Characteristics: Normal Velopharyngeal Movement: Normal Laryngeal Elevation: WFL Laryngeal Movement: Able to Palpate Rate of Intake: WFL Bolus Size: WFL Chewing: WFL Oral Prep Time: WFL A-P Transit: WFL Timing of Swallow: WFL Coughing/Throat Clear: No (3 oz water (-)) Change in Voice: No Recommendations - Speech Evaluation, Impression/Plan Impression: Now verbal, appropriate, oriented,occasionally forgets the question presented especially if becomes distracted or there is a delay in response.Language function much improved. Swallowing intact - Disposition Discharge to: Home with Assist - Dysphagia Impressions/Plan Swallowing Skills: WFL Dysphagia Impressions: No Impairment *Silent aspiration: cannot be R/O at bedside - Recommendations Diet Consistency: Regular Medication Administration: Whole with water Liquids: Thin Liquids
--- NOTE | 2019-04-25 20:20 | PN ---
Progress Note (short form) - Note Progress Note: 73 year old male with PMH epilepsy who presents s/p grand mal seizure. Pt was in the ED last night after an aphasic episode. Pt's was at bedside (earlier ) to assist with history. Workup was done to r/o stroke and was negative. Dr. Polanco (pt's neurologist) was consulted, recommended pt observation in ER for 4 hours, and if no seizures, then to send home and f/u today as outpatient. Today , pt was on way to appointment with Dr. Polanco and had grand mal seizure at office. Pt experienced LOC and urinary incontinence, however was without head trauma. Pt's was told to bring pt to ED. Pt takes lamictal 100mg BID and oxycarbamazine 300mg 6x day (1800mg total). He was previously on Keppra but d/c'ed in November 14 adverse effects. Pt has been compliant with new meds with no new seizures up until this point. Pt's denies recent illnesses, no alcohol or drug use (pt is recovering alcoholic x30 + years). At this time, pt is able to follow commands, but does not complete full sentences, gets confused. Oriented to person and place if prompted. Unsure of date. -Pts seizuresare always partial- present with Brocas aphasia that can last for up to 48 hours, this am had similar partial sz. in my office but with urinary incont. In ER today aphasia remitted completely but now he is again having word finding difficulty. At home is compliant with meds, Oxvcarb total of 1800mg daily and lamictal 100mg [id number] bipolar d/o).CT head last night reported without acute abn. 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 (Initially presented in 2010- thought to be due to Bupropion-discontinued) Cardio/Vascular: Yes: CAD Psych: Yes: Anxiety, Depression Musculoskeletal: Yes: Osteoarthritis - Past Surgical History Past Surgical History: Yes: None - Alcohol/Substance Use Hx Alcohol Use: No - Smoking History Smoking history: Never smoked Have you smoked in the past 12 months: No Aproximately how many cigarettes per day: 15 If you are a former smoker, when did you quit?: SMOKES E-CIGARETTES - Social History Usual Living Arrangement: Alone ADL: Independent Occupation: retired History of Recent Travel: No Home Medications - Allergies Allergies/Adverse Reactions: Allergies Allergy/AdvReac Type Severity Reaction Status Date / Time Penicillins Allergy Intermediate Rash Verified 04/23/19 19:53 - Home Medications Home Medications: Ambulatory Orders Aspirin [ASA -] 81 mg PO DAILY 04/29/14 Sertraline HCl [Zoloft -] 100 mg PO BID 04/29/14 Lamotrigine [LaMICtal -] 200 mg PO BID 11/21/15 Ramipril 5 mg PO HS 11/21/15 Acyclovir [Zovirax -] 200 mg PO BID 11/05/17 levETIRAcetam [Keppra -] 500 mg PO BID #56 tablet 11/07/17 Cholecalciferol (Vitamin D3) [Vitamin D -] 400 unit PO DAILY 06/01/18 Lacosamide [Vimpat -] 50 mg PO BID #14 tab MDD 100 mg 06/03/18 Physical Exam-Neuro Vital Signs: Vital Signs Temperature 98.2 F 04/25/19 18:00 Pulse Rate 77 04/25/19 18:00 Respiratory Rate 18 04/25/19 18:00 Blood Pressure 104/72 04/25/19 18:00 O2 Sat by Pulse Oximetry (%) 99 04/25/19 09:00 CBC, BMP 04/24/19 13:20 04/24/19 13:20 - Neuro Exam Level Of Consciousness: Yes: Alert, Oriented to Person, Oriented to Place Eyes: Yes: MARIO Speech: Broca's Aphasia (+ anomia and word finding difficulty, non-fluent speech ) Cranial Nerves II-XII Intact: Yes DTR's: 1+ Left Achilles, 1+ Right Achilles, 2+ Left Bicep, 2+ Right Bicep, 2+ Left Tricep, 2+ Right Tricep, 2+ Left Brachioradialis, 2+ Right Brachioradialis Babinski: Present (+ bilat upgoing toes) Motor Strength: 5/5: Left Arm, Right Arm, Left Leg, Right Leg Gait: Deferred, Other Assessment/Plan Pt. with breakthrough partial sz. ?? sleep deprivation as trigger. He appears to have recurrent partial sz, his typical with aphasia. resolving with mild post ictal now . Plan. Cont Oxcarb 300mg q3hrs total of 6 doses daily while awake , cont dilantin 100mg tid starting tomorrow. Increase lamictal to 125mg bid. if no new issues in AM and more steady , can DC home with outpt FU DR RUBI
[2019-04-25] MEDS: RAMIPRIL 5 MG CAPSULE (FP) PO SCH (21:51)
[2019-04-25] MEDS: lamoTRIgine 25 MG TABLET PO SCH (21:53)
[2019-04-26] MEDS: OXcarbazepine 300 MG TABLET (UD) PO SCH ×4 (06:28→14:24)
[2019-04-26] MEDS: PHENYTOIN NA EXTENDED 100 MG CAPSULE (FP) PO SCH ×2 (06:28→14:25)
[2019-04-26 07:32] LABS: BLOOD UREA NITROGEN 14.9 mg/dL (7-18); CALCIUM 8.9 mg/dL (8.5-10.1); CREATININE 1.1 mg/dL (0.55-1.3); MAGNESIUM 1.9 mg/dL (1.8-2.4); POTASSIUM 4.2 mmol/L (3.5-5.1)
[2019-04-26] MEDS ORDERED: PT OWN MED DRAWER 7, Y5N ONE (07:41)
[2019-04-26] MEDS: ASPIRIN 81 MG CHEWABLE TABLETS PO SCH (09:33)
[2019-04-26] MEDS: HEPARIN NA (PORCINE) 5,000 UNITS/ML 1ML VIAL SQ SCH (09:33)
[2019-04-26] MEDS: CHOLECALCIFEROL (VIT D3) 400 UNIT (10 MCG) TABLET PO SCH (09:33)
[2019-04-26] MEDS: SERTRALINE HCL 50 MG TABLET (FP) PO SCH (09:33)
[2019-04-26] MEDS: lamoTRIgine 100 MG TABLET (FP) PO SCH (09:34)
[2019-04-26] MEDS: lamoTRIgine 25 MG TABLET PO SCH (09:35)
[2019-04-26] MEDS: ACYCLOVIR 200 MG/5 ML LIQUID PO SCH (09:35)
[2019-04-26 14:54] VITALS: BP 103/64; PULSE 77; TEMP 97.3
--- NOTE | 2019-04-26 17:55 | DS ---
Physical Exam: SUBJECTIVE: Patient seen and examined at bedside. Feeling well, excited to go home. OBJECTIVE: Vital Signs Period Temp Pulse Resp BP Sys/Gong Pulse Ox Last 24 Hr 97.3 F-98.4 F 61-77 18-20 103-147/59-94 95-98 PHYSICAL EXAM General: resting in bed, in NAD HEENT: NCAT neck: supple Cardio: S1, S2 RRR. no r/m/g Pulm: CTA b/l abdomen: nontender, nondistended neuro: +improved aphasia. sensation intact. travel guide 2-9 intact. deficits in 10-12. unable to shrug shoulders, weak strength with SCM b/l. +dysmetria. no pronator drift. sensation intact. LE: 2+ pulses, no edema LABS Laboratory Results - last 24 hr 04/25/19 04/26/19 03:45 06:32 Sodium 132 L Potassium 4.2 Chloride 98 Carbon Dioxide 26 Anion Gap 8 BUN 14.9 Creatinine 1.1 Est GFR (CKD-EPI)AfAm 75.71 Est GFR (CKD-EPI)NonAf 65.32 Random Glucose 85 Calcium 8.9 Phosphorus 3.0 Magnesium 1.9 Prolactin 15.0 04/24/19 04/25/19 13:20 07:10 WBC 6.9 4.6 Hgb 14.4 13.7 Hct 43.2 40.3 Plt Count 190 192 04/25/19 07:10 PT with INR 11.70 INR 0.99 04/25/19 04/25/19 04/25/19 03:45 03:45 03:45 Sodium Potassium Carbon Dioxide Anion Gap Creatinine Est GFR (CKD-EPI)AfAm Lactic Acid Magnesium Total Bilirubin AST ALT Alkaline Phosphatase Troponin I < 0.02 B-Natriuretic Peptide 217.8 Total Protein Albumin Total Amylase 35 TSH 4.18 H D Prolactin 15.0 04/25/19 04/25/19 04/26/19 03:45 07:10 06:32 Sodium 131 L 132 L Potassium 4.3 4.2 Carbon Dioxide 26 26 Anion Gap 7 L 8 Creatinine 1.1 1.1 Est GFR (CKD-EPI)AfAm 75.71 75.71 Lactic Acid 0.8 Magnesium 1.9 1.9 Total Bilirubin 0.3 AST 13 L ALT 19 Alkaline Phosphatase 111 Troponin I B-Natriuretic Peptide Total Protein 6.4 Albumin 3.7 Total Amylase TSH Prolactin HOSPITAL COURSE: Date of Admission:04/24/19 Date of Discharge: 04/26/19 73 year old male with PMH epilepsy who presents s/p grand mal seizure. Pt was in the ED night prior to admission after an aphasic episode. #Breakthru partial seizure likely 2/2 sleep deprivation -at home, pt on lamictal 100mg BID, oxycarbamezpine 300mg 6x day (1800mg total) -ED d/w neuro: received ox 300mg prior to ED, and 300mg in ED per neuro recs -on floor, seen by neuro: loaded w/ fosphenytoin, c/w dilantin 100mg TID, lamictal increased to 125mg BID, oxcarbazepine 300mg 6x/day -vimpat was d/c -no seizures after admission -pt to complete EEG as an outpt. -sz precautions #Hyponatremia, likely chronic 2/2 AEs -c/t monitor; asymptomatic -should not overcorrect, can give IV NS if needed #Hx herpes -f/u HSV testing -c/w acyclovir #HTN- controlled -c/w ramipril #speech/swallow evaluation reg diet, thin liquids per S/S Minutes to complete discharge: 44 Discharge Summary Problems reviewed: Yes Reason For Visit: EPILEPSY Condition: Improved - Instructions Diet, Activity, Other Instructions: You were in the hospital because you had a seizure. You were seen by a neurologist and your medications were adjusted. You improved and are being sent home. Medications 1. New med: dilantin 100mg three times a day (TID) 2. Dose adjustment: lamictal increased to 125mg twice a day (BID) from 100mg twice a day 3. Continue normal dosing: oxcarbazepine 300mg take daily, every three hours. ( 6x a day) 3. discontinued med: vimpat 4. You may continue your other home meds Care 1. You will need to use a walker at home to help you stabilize your body, as you walk. Testing 1. You will need to have an EEG done as an outpatient. You will do this with your neurologist. 2. Your sodium was borderline low when you were in the hospital (131). Please have this repeated. This may be chronic and from your seizure medications. Follow up Please follow up with your primary care doctor, Dr. Steve in 3-5 days after your discharge Please also see your neurologist, Dr. Polanco- in 1 week to discuss your hospital visit Referrals: Felicitas Polanco MD [Staff Physician] - 1 Week Jose Martin Steve MD [Primary Care Provider] - 04/27/19 Disposition: [facility]NS/HOME HEALTH CARE - Home Medications Comprehensive Discharge Medication List: Ambulatory Orders Aspirin [ASA -] 81 mg PO DAILY 04/29/14 Sertraline HCl [Zoloft -] 100 mg PO BID 04/29/14 Ramipril 5 mg PO HS 11/21/15 Acyclovir [Zovirax -] 200 mg PO BID 11/05/17 Cholecalciferol (Vitamin D3) [Vitamin D -] 400 unit PO DAILY 06/01/18 Lamotrigine [Lamictal] 125 mg PO BID #150 tablet 04/25/19 Oxcarbazepine [Trileptal -] 300 mg PO [id number] #180 tablet 04/25/19 Phenytoin Na Extended [Dilantin -] 100 mg PO TID #90 capsule 04/25/19 This patient is new to me today: No Emergency Visit: No Critical Care patient: No - Discharge Referral Referred to [facility] No
== END 2019-04-26 14:45 | disposition home health service (06) | DRG 101 ==
LOC: JER 11:38 → JERBED 15:51 → J4W 20:23
PROVIDERS: ADMIT Internal Medicine; ATTEND Internal Medicine
DX: R56.9 Unspecified convulsions (principal); E87.1 Hypo-osmolality and hyponatremia; R47.01 Aphasia; I25.10 Atherosclerotic heart disease of native coronary artery without angina pectoris; I10 Essential (primary) hypertension; F41.8 Other specified anxiety disorders
CPT/HCPCS: 36415; 70450-TC; 80048; 80053; 81003; 82150; 82465; 82550; 83605; 83718; 83721; 83735; 83880; 84100; 84146; 84443; 84478; 84484; 85025; 85610; 86850; 86900; 86901; 93005; 93010; 94010; 97116-GP; 97161-GP; 99283-25; 99285-25; J1644; J7030

== ENCOUNTER 2020-04-07 20:42 | Inpatient (IN) | payer OTHER, MEDICARE ==
[2020-04-07] MEDS ORDERED: Lacosamide 200 MG/20 ML VIAL IVPB ONE ×2 (21:10→21:39)
[2020-04-07 21:31] LABS: BASO % 0.8 % (0-2.0); EOS % 0.7 % (0-4.5); HEMATOCRIT 46.3 % (35.4-49); HEMOGLOBIN 15.7 GM/dL (11.7-16.9); LYMPH % 12.7 % (8-40); MCH 33.6 pg (25.7-33.7); MCHC 33.9 g/dl (32.0-35.9); MEAN PLT VOLUME 8.5 fl (7.5-11.1); MONO % 5.9 % (3.8-10.2); NEUT % 79.9 % (42.8-82.8); PLATELET COUNT 253 K/MM3 (134-434); RBC 4.67 M/mm3 (4.00-5.60); RDW 14.2 % (11.9-15.9); WHITE BLOOD COUNT 7.3 K/mm3 (4.0-10.0)
[2020-04-07 22:50] LABS: CHLORIDE 100 mmol/L (98-107); SODIUM 133 mmol/L (136-145)
[2020-04-07 22:52] LABS: CALCIUM 9.1 mg/dL (8.5-10.1)
[2020-04-07 22:53] LABS: BLOOD UREA NITROGEN 15.5 mg/dL (7-18); CO2 25 mmol/L (21-32); GLUCOSE,RANDOM 119 mg/dL (74-106)
[2020-04-07 22:56] LABS: CREATININE 1.3 mg/dL (0.55-1.3); SGOT/AST 66 U/L (15-37)
[2020-04-07 22:58] LABS: BILIRUBIN,TOTAL 0.5 mg/dL (0.2-1); TOT PROT 7.7 g/dl (6.4-8.2)
[2020-04-07 22:59] LABS: ALK PHOS 118 U/L (45-117)
[2020-04-07 23:04] LABS: ANION GAP 8 MMOL/L (8-16); SGPT/ALT 20 U/L (13-61)
[2020-04-07 23:05] LABS: POTASSIUM 6.7 mmol/L (3.5-5.1)
[2020-04-07 23:59] LABS: POTASSIUM 4.4 mmol/L (3.5-5.1)
[2020-04-08 00:01] LABS: ALBUMIN 3.9 g/dl (3.4-5.0); BLOOD UREA NITROGEN 14.9 mg/dL (7-18); CALCIUM 9.1 mg/dL (8.5-10.1)
[2020-04-08 00:04] LABS: CREATININE 1.2 mg/dL (0.55-1.3)
[2020-04-08 00:06] LABS: BILIRUBIN,TOTAL 0.4 mg/dL (0.2-1); TOT PROT 6.8 g/dl (6.4-8.2)
[2020-04-08 04:50] LABS: PH,URINE 6.5 (5.0-8.0); URINE APPEARANCE CLEAR; URINE BILIRUBIN NEGATIVE (NEGATIVE); URINE COLOR YELLOW; URINE GLUCOSE (UA) NEGATIVE (NEGATIVE); URINE KETONE NEGATIVE (NEGATIVE); URINE LEUK ESTERASE NEGATIVE (NEGATIVE); URINE NITRITE NEGATIVE (NEGATIVE); URINE PROTEIN NEGATIVE (NEGATIVE); URINE UROBILINOGEN 0.2 mg/dL (0.2-1.0)
[2020-04-08] MEDS ORDERED: OXcarbazepine 300 MG TABLET (UD) PO SCH (06:15)
[2020-04-08 06:18] LABS: HEMATOCRIT 42.9 % (35.4-49); HEMOGLOBIN 14.6 GM/dL (11.7-16.9); MCH 33.3 pg (25.7-33.7); MEAN CELL VOLUME 98.1 fl (80-96); MEAN PLT VOLUME 7.6 fl (7.5-11.1); PLATELET COUNT 232 K/MM3 (134-434); RBC 4.38 M/mm3 (4.00-5.60); RDW 13.9 % (11.9-15.9); WHITE BLOOD COUNT 7.8 K/mm3 (4.0-10.0)
[2020-04-08] MEDS: OXcarbazepine 300 MG TABLET (UD) PO SCH ×5 (06:18→23:18)
[2020-04-08] MEDS: LACTATED RINGERS SOLUTION 1,000 ML/1,000 ML INFUS.BAG IV SCH (06:18)
[2020-04-08 06:53] LABS: CALCIUM 8.9 mg/dL (8.5-10.1)
[2020-04-08 06:54] LABS: ALBUMIN 3.8 g/dl (3.4-5.0); BLOOD UREA NITROGEN 12.6 mg/dL (7-18); MAGNESIUM 2.1 mg/dL (1.8-2.4)
[2020-04-08 06:57] LABS: CREATININE 1.1 mg/dL (0.55-1.3); PHOSPHOROUS 2.8 mg/dL (2.5-4.9)
[2020-04-08 06:58] LABS: BILIRUBIN,TOTAL 0.4 mg/dL (0.2-1)
[2020-04-08 06:59] LABS: TOT PROT 6.4 g/dl (6.4-8.2)
[2020-04-08] MEDS ORDERED: PT OWN MED DRAWER 7, Y5N ONE ×2 (09:01→17:43)
[2020-04-08] MEDS ORDERED: LACOSAMIDE 50 MG TABLET PO ONE ×2 (09:06→22:40)
[2020-04-08] MEDS ORDERED: lamoTRIgine 100 MG TABLET ONE ×2 (09:07→22:40)
[2020-04-08] MEDS ORDERED: RAMIPRIL 5 MG CAPSULE ONE (09:07)
[2020-04-08] MEDS ORDERED: ENOXAPARIN NA (PORCINE) 40 MG/0.4 ML DISP.SYRIN SQ ONE (09:07)
[2020-04-08] MEDS ORDERED: ASPIRIN 81 MG CHEWABLE TABLETS ONE (09:07)
[2020-04-08] MEDS: RAMIPRIL 5 MG CAPSULE PO SCH (09:12)
[2020-04-08] MEDS: ASPIRIN 81 MG CHEWABLE TABLETS PO SCH (09:12)
[2020-04-08] MEDS: ENOXAPARIN NA (PORCINE) 40 MG/0.4 ML DISP.SYRIN SQ SCH (09:13)
[2020-04-08] MEDS: SERTRALINE HCL 25 MG TABLET (FP) PO SCH ×2 (09:13→23:18)
[2020-04-08] MEDS: LACOSAMIDE 50 MG TABLET PO SCH ×2 (09:13→23:18)
[2020-04-08] MEDS: lamoTRIgine 100 MG TABLET PO SCH ×2 (09:13→23:19)
[2020-04-08] MEDS ORDERED: lamoTRIgine 25 MG TABLET ONE (22:40)
[2020-04-08] MEDS: rOPINIRole HCL 1 MG TABLET (FP) PO SCH (23:18)
[2020-04-08] MEDS: lamoTRIgine 25 MG TABLET PO SCH (23:19)
[2020-04-09 01:40] VITALS: BMI 25.5
[2020-04-09] MEDS: LACTATED RINGERS SOLUTION 1,000 ML/1,000 ML INFUS.BAG IV SCH (02:00)
[2020-04-09] MEDS: OXcarbazepine 300 MG TABLET (UD) PO SCH ×6 (03:01→21:45)
[2020-04-09 07:18] LABS: BASO % 0.5 % (0-2.0); EOS % 0.3 % (0-4.5); HEMATOCRIT 43.9 % (35.4-49); HEMOGLOBIN 14.8 GM/dL (11.7-16.9); MCH 33.2 pg (25.7-33.7); MCHC 33.7 g/dl (32.0-35.9); MEAN CELL VOLUME 98.7 fl (80-96); MEAN PLT VOLUME 7.8 fl (7.5-11.1); NEUT % 81.2 % (42.8-82.8); PLATELET COUNT 231 K/MM3 (134-434); RBC 4.45 M/mm3 (4.00-5.60); RDW 13.7 % (11.9-15.9); WHITE BLOOD COUNT 8.9 K/mm3 (4.0-10.0)
[2020-04-09 07:40] LABS: POTASSIUM 4.3 mmol/L (3.5-5.1)
[2020-04-09 07:57] LABS: ALBUMIN 3.8 g/dl (3.4-5.0); CALCIUM 9.1 mg/dL (8.5-10.1)
[2020-04-09 07:58] LABS: BLOOD UREA NITROGEN 10.8 mg/dL (7-18)
[2020-04-09 07:59] LABS: MAGNESIUM 1.9 mg/dL (1.8-2.4)
[2020-04-09 08:00] LABS: PHOSPHOROUS 3.4 mg/dL (2.5-4.9)
[2020-04-09 08:01] LABS: BILIRUBIN,TOTAL 0.6 mg/dL (0.2-1); TOT PROT 6.6 g/dl (6.4-8.2)
[2020-04-09] MEDS: SERTRALINE HCL 25 MG TABLET (FP) PO SCH ×2 (10:45→21:44)
[2020-04-09] MEDS: RAMIPRIL 5 MG CAPSULE PO SCH (10:45)
[2020-04-09] MEDS: ASPIRIN 81 MG CHEWABLE TABLETS PO SCH (10:45)
[2020-04-09] MEDS: LACOSAMIDE 50 MG TABLET PO SCH ×2 (10:45→21:44)
[2020-04-09] MEDS: ENOXAPARIN NA (PORCINE) 40 MG/0.4 ML DISP.SYRIN SQ SCH (10:48)
[2020-04-09] MEDS ORDERED: PT OWN MED DRAWER 7, Y5N ONE ×5 (10:58→18:19)
[2020-04-09] MEDS: lamoTRIgine 100 MG TABLET PO SCH ×2 (11:14→21:47)
[2020-04-09] MEDS: lamoTRIgine 25 MG TABLET PO SCH (21:46)
[2020-04-09] MEDS: rOPINIRole HCL 1 MG TABLET (FP) PO SCH (21:46)
[2020-04-10] MEDS: OXcarbazepine 300 MG TABLET (UD) PO SCH ×3 (02:34→09:45)
[2020-04-10] MEDS ORDERED: PT OWN MED DRAWER 7, Y5N ONE ×2 (09:18→10:11)
[2020-04-10 09:19] VITALS: TEMP 98
[2020-04-10] MEDS ORDERED: ONDANSETRON *ODT* 4 MG TABLET SL ONE (09:22)
[2020-04-10] MEDS: RAMIPRIL 5 MG CAPSULE PO SCH (09:44)
[2020-04-10] MEDS: ASPIRIN 81 MG CHEWABLE TABLETS PO SCH (09:44)
[2020-04-10] MEDS: SERTRALINE HCL 25 MG TABLET (FP) PO SCH (09:44)
[2020-04-10] MEDS: ENOXAPARIN NA (PORCINE) 40 MG/0.4 ML DISP.SYRIN SQ SCH (09:44)
[2020-04-10] MEDS: LACOSAMIDE 50 MG TABLET PO SCH (09:45)
[2020-04-10] MEDS: lamoTRIgine 100 MG TABLET PO SCH (09:45)
[2020-04-10 11:42] VITALS: BP 150/78; PULSE 80
== END 2020-04-10 11:40 | disposition home or self-care (01) | DRG 101 ==
LOC: JER 20:42 → SUPCPDRO 20:42 → JERBED 04-08 00:24 → J4W 04-09 01:18
PROVIDERS: ADMIT Internal Medicine; ATTEND Internal Medicine
DX: G40.909 Epilepsy, unspecified, not intractable, without status epilepticus (principal); G25.81 Restless legs syndrome; K21.9 Gastro-esophageal reflux disease without esophagitis; C61 Malignant neoplasm of prostate; F90.9 Attention-deficit hyperactivity disorder, unspecified type; F32.9 Major depressive disorder, single episode, unspecified; Z88.0 Allergy status to penicillin; A60.02 Herpesviral infection of other male genital organs; F17.210 Nicotine dependence, cigarettes, uncomplicated
CPT/HCPCS: 36415; 70450-TC; 71045-TC-FY; 80053; 80183; 81003; 82550; 82553; 82962; 83735; 84100; 84484; 85025; 85027; 93005; 93010; 97116-GP; 97161-GP; 99285-25; C9803; Q0162; U0003

== ENCOUNTER 2020-04-24 14:54 | Emergency (ER) | payer OTHER, MEDICARE ==
[2020-04-24 15:37] VITALS: BMI 24.1
[2020-04-24] MEDS ORDERED: MECLIZINE HCL 25 MG TABLET (FP) PO ONE (16:57)
[2020-04-24] MEDS ORDERED: SODIUM CHLORIDE 0.9% 500 ML INFUS.BAG IV ONE (16:58)
[2020-04-24] MEDS ORDERED: MECLIZINE HCL 25 MG TABLET (FP) ONE (17:07)
[2020-04-24 17:33] LABS: BASO % 0.5 % (0-2.0); EOS % 0.5 % (0-4.5); HEMATOCRIT 46.6 % (35.4-49); HEMOGLOBIN 15.3 GM/dL (11.7-16.9); LYMPH % 7.2 % (8-40); MCH 32.4 pg (25.7-33.7); MCHC 32.9 g/dl (32.0-35.9); MEAN CELL VOLUME 98.6 fl (80-96); MEAN PLT VOLUME 9.1 fl (7.5-11.1); MONO % 4.7 % (3.8-10.2); NEUT % 87.1 % (42.8-82.8); PLATELET COUNT 270 K/MM3 (134-434); RBC 4.72 M/mm3 (4.00-5.60); RDW 13.9 % (11.9-15.9); WHITE BLOOD COUNT 8.8 K/mm3 (4.0-10.0)
[2020-04-24 17:59] LABS: CHLORIDE 99 mmol/L (98-107); POTASSIUM 4.6 mmol/L (3.5-5.1); SODIUM 135 mmol/L (136-145)
[2020-04-24 18:01] LABS: CALCIUM 9.4 mg/dL (8.5-10.1)
[2020-04-24 18:03] LABS: ALBUMIN 3.9 g/dl (3.4-5.0); ANION GAP 10 MMOL/L (8-16); BLOOD UREA NITROGEN 11.9 mg/dL (7-18); CO2 26 mmol/L (21-32); GLUCOSE,RANDOM 100 mg/dL (74-106); LIPASE 84 U/L (73-393)
[2020-04-24 18:05] LABS: CREATININE 1.2 mg/dL (0.55-1.3); SGOT/AST 27 U/L (15-37); SGPT/ALT 17 U/L (13-61)
[2020-04-24 18:08] LABS: ALK PHOS 127 U/L (45-117); BILIRUBIN,TOTAL 0.4 mg/dL (0.2-1); TOT PROT 7.2 g/dl (6.4-8.2)
[2020-04-24 18:25] VITALS: BP 161/78; PULSE 98; TEMP 98.1
== END 2020-04-24 19:33 | disposition home or self-care (01) ==
LOC: JER 14:54
DX: R11.2 Nausea with vomiting, unspecified (principal)
CPT/HCPCS: 36415; 80053; 83690; 84484; 85025; 93005; 93010; 99284-25

== ENCOUNTER 2020-07-11 17:53 | Emergency (ER) | payer OTHER, MEDICARE ==
[2020-07-11 18:20] VITALS: BMI 25.8
[2020-07-11] MEDS ORDERED: SODIUM CHLORIDE 1,000 ML IV SCH (18:45)
[2020-07-11 22:20] LABS: BASO % 1.1 % (0-2.0); EOS % 1.7 % (0-4.5); HEMATOCRIT 41.9 % (35.4-49); HEMOGLOBIN 14.5 GM/dL (11.7-16.9); LYMPH % 14.5 % (8-40); MCH 34.2 pg (25.7-33.7); MCHC 34.6 g/dl (32.0-35.9); MEAN PLT VOLUME 8.2 fl (7.5-11.1); MONO % 5.2 % (3.8-10.2); NEUT % 77.5 % (42.8-82.8); PLATELET COUNT 213 K/MM3 (134-434); RBC 4.23 M/mm3 (4.00-5.60); WHITE BLOOD COUNT 7.5 K/mm3 (4.0-10.0)
[2020-07-11 22:29] LABS: INR 0.99 (0.83-1.09); PROTHROMBIN TIME (PATIENT) 12.2 SEC (9.7-13.0)
[2020-07-11 22:31] LABS: ACTIVATED PTT 30.8 SECONDS (25.2-36.5)
[2020-07-11 22:46] LABS: CHLORIDE 102 mmol/L (98-107); POTASSIUM 4.3 mmol/L (3.5-5.1); SODIUM 135 mmol/L (136-145)
[2020-07-11 22:49] LABS: ANION GAP 4 MMOL/L (8-16); BLOOD UREA NITROGEN 14.9 mg/dL (7-18); CO2 28 mmol/L (21-32); GLUCOSE,RANDOM 89 mg/dL (74-106)
[2020-07-11 22:51] LABS: CHOLESTEROL 212 mg/dL (50-200); TRIGLYCERIDES 88 mg/dL (0-150)
[2020-07-11 22:52] LABS: LDL CHOLESTEROL (ONLY SJRH) 114 mg/dL (5-100); SGOT/AST 14 U/L (15-37)
[2020-07-11 22:53] LABS: BILIRUBIN,TOTAL 0.4 mg/dL (0.2-1); SGPT/ALT 19 U/L (13-61); TOT PROT 6.9 g/dl (6.4-8.2)
[2020-07-11 22:54] LABS: ALK PHOS 129 U/L (45-117); HDL CHOLESTEROL 82 mg/dL (40-60)
[2020-07-12 01:54] VITALS: BP 150/81; PULSE 59; TEMP 97.7
== END 2020-07-11 23:50 | disposition home or self-care (01) ==
LOC: JER 17:53
DX: R47.01 Aphasia (principal); R56.9 Unspecified convulsions
CPT/HCPCS: 36415; 70450-TC; 80053; 80061; 82550; 83721; 84484; 85025; 85610; 85730; 86850; 86900; 86901; 93005; 93010; 99284-25; C9803; U0003

== ENCOUNTER 2020-07-19 17:28 | Emergency (ER) | payer OTHER, MEDICARE ==
[2020-07-19 17:42] VITALS: BP 136/72; PULSE 63; TEMP 97.9; BMI 25.8
== END 2020-07-19 18:01 | disposition home or self-care (01) ==
LOC: JER 17:28
DX: U07.1 COVID-19 (principal)
CPT/HCPCS: 99283-25

== ENCOUNTER 2020-07-20 12:16 | Emergency (ER) | payer OTHER, MEDICARE ==
[2020-07-20 12:20] VITALS: BMI 25.1
[2020-07-20] MEDS ORDERED: BAMLANIVIMAB 700 MG in SODIUM CHLORIDE 250 ML IVPB ONE (12:29)
[2020-07-20 15:58] VITALS: TEMP 98
[2020-07-20 17:03] VITALS: BP 129/65; PULSE 58
== END 2020-07-20 17:05 | disposition home or self-care (01) ==
LOC: JER 12:16
DX: U07.1 COVID-19 (principal)
CPT/HCPCS: 99284-25; M0239; Q0239

== ENCOUNTER 2021-01-29 18:39 | Observation (INO) | payer OTHER, MEDICARE ==
[2021-01-29] MEDS ORDERED: LORazepam 2 MG/ML SDV VIAL ONE (19:23)
[2021-01-29] MEDS ORDERED: LORazepam 2 MG/ML SDV VIAL IVPUSH ONE (19:30)
[2021-01-29] MEDS ORDERED: LACTATED RINGERS SOLUTION 1000 ML INFUS.BAG IV ONE (19:31)
[2021-01-29] MEDS ORDERED: OXcarbazepine 300 MG/5 ML 250 ML BULK BOTTLE PO ONE (19:37)
[2021-01-29 19:58] LABS: INR 0.95 (0.83-1.09); PROTHROMBIN TIME (PATIENT) 11.5 SEC (9.7-13.0)
[2021-01-29 20:28] LABS: CHLORIDE 108 mmol/L (98-107); SODIUM 141 mmol/L (136-145)
[2021-01-29 20:31] LABS: ALBUMIN 4.2 g/dl (3.4-5.0); CALCIUM 9.3 mg/dL (8.5-10.1)
[2021-01-29 20:32] LABS: ANION GAP 6 MMOL/L (8-16); BLOOD UREA NITROGEN 20.1 mg/dL (7-18); CO2 26 mmol/L (21-32); GLUCOSE,RANDOM 91 mg/dL (74-106)
[2021-01-29 20:34] LABS: SGPT/ALT 22 U/L (13-61)
[2021-01-29 20:35] LABS: CHOLESTEROL 212 mg/dL (50-200); CREATININE 1.1 mg/dL (0.55-1.3); SGOT/AST 12 U/L (15-37)
[2021-01-29 20:36] LABS: BILIRUBIN,TOTAL 0.4 mg/dL (0.2-1); LDL CHOLESTEROL (ONLY SJRH) 113 mg/dL (5-100); TOT PROT 7.2 g/dl (6.4-8.2); TRIGLYCERIDES 74 mg/dL (0-150)
[2021-01-29 20:37] LABS: ALK PHOS 128 U/L (45-117); HDL CHOLESTEROL 77 mg/dL (40-60)
[2021-01-29] MEDS ORDERED: OXcarbazepine 300 MG TABLET (UD) PO ONE (21:15)
[2021-01-29] MEDS ORDERED: lamoTRIgine 100 MG TABLET PO ONE (21:15)
[2021-01-29 22:33] LABS: BASO % 0.4 % (0-2.0); EOS % 1.3 % (0-4.5); HEMATOCRIT 41.4 % (35.4-49); HEMOGLOBIN 14.2 GM/dL (11.7-16.9); LYMPH % 7.9 % (8-40); MCH 34.1 pg (25.7-33.7); MCHC 34.2 g/dl (32.0-35.9); MEAN CELL VOLUME 99.5 fl (80-96); MONO % 4.9 % (3.8-10.2); NEUT % 85.5 % (42.8-82.8); RBC 4.16 M/mm3 (4.00-5.60); RDW 14.7 % (11.9-15.9); WHITE BLOOD COUNT 8.9 K/mm3 (4.0-10.0)
[2021-01-29 23:59] LABS: PLATELET ESTIMATE NORMAL
[2021-01-30] LABS: MEAN PLT VOLUME 7.6 fl (7.5-11.1); PLATELET COUNT 192 10^3/uL (134-434)
[2021-01-30 03:08] LABS: URINE APPEARANCE Clear; URINE BILIRUBIN Negative (NEGATIVE); URINE COLOR Yellow; URINE GLUCOSE (UA) Negative (NEGATIVE); URINE KETONE Negative (NEGATIVE); URINE LEUK ESTERASE Negative (NEGATIVE); URINE NITRITE Negative (NEGATIVE); URINE PROTEIN Negative (NEGATIVE); URINE UROBILINOGEN 0.2 mg/dL (0.2-1.0)
[2021-01-30 05:15] VITALS: BMI 23.1
[2021-01-30] MEDS: OXcarbazepine 300 MG TABLET (UD) PO SCH ×5 (05:41→21:54)
[2021-01-30] MEDS ORDERED: PT OWN MED DRAWER 7, Y5N ONE ×3 (06:28→21:13)
[2021-01-30] MEDS: ENOXAPARIN NA (PORCINE) 40 MG/0.4 ML DISP.SYRIN SQ SCH (09:20)
[2021-01-30] MEDS: LACOSAMIDE 50 MG TABLET PO SCH ×2 (09:21→09:29)
[2021-01-30] MEDS: SERTRALINE HCL 50 MG TABLET (FP) PO SCH ×2 (09:21→21:57)
[2021-01-30] MEDS: ASPIRIN 81 MG CHEWABLE TABLETS PO SCH (09:22)
[2021-01-30 09:42] LABS: BASO % 0.8 % (0-2.0); EOS % 2.1 % (0-4.5); HEMATOCRIT 38.7 % (35.4-49); HEMOGLOBIN 13.4 GM/dL (11.7-16.9); LYMPH % 12.1 % (8-40); MCH 34.4 pg (25.7-33.7); MCHC 34.6 g/dl (32.0-35.9); MEAN CELL VOLUME 99.4 fl (80-96); MEAN PLT VOLUME 7.4 fl (7.5-11.1); MONO % 6.5 % (3.8-10.2); NEUT % 78.5 % (42.8-82.8); PLATELET COUNT 182 10^3/uL (134-434); RDW 14.9 % (11.9-15.9); WHITE BLOOD COUNT 6.7 K/mm3 (4.0-10.0)
[2021-01-30 09:50] LABS: ALBUMIN 3.4 g/dl (3.4-5.0); BLOOD UREA NITROGEN 11.8 mg/dL (7-18); CALCIUM 8.7 mg/dL (8.5-10.1)
[2021-01-30 09:51] LABS: MAGNESIUM 2.3 mg/dL (1.8-2.4)
[2021-01-30 09:55] LABS: BILIRUBIN,TOTAL 0.6 mg/dL (0.2-1); PHOSPHOROUS 2.8 mg/dL (2.5-4.9)
[2021-01-30] MEDS ORDERED: RAMIPRIL 5 MG CAPSULE PO SCH ×2 (10:00→11:33)
[2021-01-30] MEDS: lamoTRIgine 25 MG TABLET PO SCH ×3 (11:26→21:56)
[2021-01-30] MEDS ORDERED: OXcarbazepine 300 MG TABLET (UD) PO ONE (11:45)
[2021-01-30] MEDS ORDERED: RAMIPRIL 5 MG CAPSULE PO ONE (11:45)
[2021-01-30] MEDS ORDERED: ACETAMINOPHEN WITH CODEINE 300MG/30MG TABLET PO ONE (21:03)
[2021-01-30] MEDS: ACYCLOVIR 200 MG CAPSULE PO SCH (21:55)
[2021-01-30] MEDS ORDERED: ATORVASTATIN CA 40 MG TABLET (FP) PO SCH (22:00)
[2021-01-31] MEDS ORDERED: PRAMIPEXOLE DIHYDROCHLORIDE 0.125 MG TABLET PO ONE (01:08)
[2021-01-31] MEDS: OXcarbazepine 300 MG TABLET (UD) PO SCH (05:59)
[2021-01-31] MEDS: ACYCLOVIR 200 MG CAPSULE PO SCH (06:00)
[2021-01-31 07:47] VITALS: BP 152/91; PULSE 58; TEMP 97.9
[2021-01-31] MEDS: lamoTRIgine 25 MG TABLET PO SCH ×2 (09:21→09:22)
[2021-01-31] MEDS: SERTRALINE HCL 50 MG TABLET (FP) PO SCH (09:22)
[2021-01-31] MEDS: ASPIRIN 81 MG CHEWABLE TABLETS PO SCH (09:22)
[2021-01-31] MEDS: ENOXAPARIN NA (PORCINE) 40 MG/0.4 ML DISP.SYRIN SQ SCH (09:23)
[2021-01-31] MEDS ORDERED: RAMIPRIL 5 MG CAPSULE PO SCH (10:00)
== END 2021-01-31 13:44 | disposition home or self-care (01) ==
LOC: JER 18:39 → JERBED 23:01 → J8W 01-30 04:40
PROVIDERS: ADMIT Internal Medicine; ATTEND Internal Medicine
PROC: 3E0234Z Introduction of Serum, Toxoid and Vaccine into Muscle, Percutaneous Approach (ICD-10-PCS; principal; 2021-01-29)
PROC: 3E0337Z Introduction of Electrolytic and Water Balance Substance into Peripheral Vein, Percutaneous Approach (ICD-10-PCS; 2021-01-29)
PROC: 3E033NZ Introduction of Analgesics, Hypnotics, Sedatives into Peripheral Vein, Percutaneous Approach (ICD-10-PCS; 2021-01-29)
DX: R41.82 Altered mental status, unspecified (principal); I25.10 Atherosclerotic heart disease of native coronary artery without angina pectoris; F05 Delirium due to known physiological condition; E78.5 Hyperlipidemia, unspecified; I10 Essential (primary) hypertension; K21.9 Gastro-esophageal reflux disease without esophagitis; F32.9 Major depressive disorder, single episode, unspecified; Z85.46 Personal history of malignant neoplasm of prostate; R79.89 Other specified abnormal findings of blood chemistry; Z29.9 Encounter for prophylactic measures, unspecified; Z91.14 Patient's other noncompliance with medication regimen; G30.9 Alzheimer's disease, unspecified; Z88.0 Allergy status to penicillin; Z88.8 Allergy status to other drugs, medicaments and biological substances; F41.8 Other specified anxiety disorders; M19.90 Unspecified osteoarthritis, unspecified site; R56.9 Unspecified convulsions; F17.210 Nicotine dependence, cigarettes, uncomplicated
CPT/HCPCS: 36415; 70450-TC; 80053; 80061; 80156; 80175; 81003; 82550; 83036; 83605; 83735; 84100; 84484; 85025; 85610; 85730; 86850; 86900; 86901; 93005; 93010; 96372; 96374; 97116-GP; 97161-GP; 99285-25; C9803; G0378; U0003; U0005

== ENCOUNTER 2021-03-21 12:23 | Emergency (ER) | payer OTHER, MEDICARE ==
[2021-03-21 12:52] VITALS: BMI 24.4
[2021-03-21] MEDS ORDERED: ACETAMINOPHEN 500 MG TABLET (FP) PO ONE (13:59)
[2021-03-21 14:32] LABS: BASO % 0.7 % (0-2.0); EOS % 1.1 % (0-4.5); HEMATOCRIT 44.6 % (35.4-49); HEMOGLOBIN 15.5 GM/dL (11.7-16.9); LYMPH % 9.1 % (8-40); MCH 34.4 pg (25.7-33.7); MCHC 34.7 g/dl (32.0-35.9); MEAN CELL VOLUME 99.1 fl (80-96); MEAN PLT VOLUME 9.3 fl (7.5-11.1); MONO % 5.6 % (3.8-10.2); NEUT % 83.5 % (42.8-82.8); PLATELET COUNT 202 10^3/uL (134-434); RDW 13.8 % (11.9-15.9); WHITE BLOOD COUNT 7.5 K/mm3 (4.0-10.0)
[2021-03-21 14:52] LABS: CHLORIDE 107 mmol/L (98-107); SODIUM 140 mmol/L (136-145)
[2021-03-21 14:54] LABS: CALCIUM 9.4 mg/dL (8.5-10.1)
[2021-03-21 14:55] LABS: ALBUMIN 4.2 g/dl (3.4-5.0); ANION GAP 6 MMOL/L (8-16); BLOOD UREA NITROGEN 20.4 mg/dL (7-18); CO2 28 mmol/L (21-32); GLUCOSE,RANDOM 83 mg/dL (74-106)
[2021-03-21 14:57] LABS: MAGNESIUM 2.2 mg/dL (1.8-2.4)
[2021-03-21 14:58] LABS: CREATININE 1.1 mg/dL (0.55-1.3); PHOSPHOROUS 2.2 mg/dL (2.5-4.9); SGOT/AST 22 U/L (15-37); SGPT/ALT 25 U/L (13-61)
[2021-03-21 15:00] LABS: BILIRUBIN,TOTAL 0.3 mg/dL (0.2-1); TOT PROT 7.4 g/dl (6.4-8.2)
[2021-03-21 15:01] LABS: ALK PHOS 137 U/L (45-117)
[2021-03-21] MEDS ORDERED: LIDOCAINE 1%/EPI 1:100000 (20 ML MULTI DOSE VIAL) IJ ONE (15:13)
[2021-03-21] MEDS ORDERED: ACETAMINOPHEN 325 MG TABLET (FP) ONE (15:14)
[2021-03-21] MEDS ORDERED: LIDOCAINE 1%/EPI 1:100000 (20 ML MULTI DOSE VIAL) ONE (15:14)
[2021-03-21] MEDS ORDERED: DIPHTH,PERTUSS(ACELL),TET 0.5 ML DISP.SYRIN IM ONE ×2 (16:10→16:24)
[2021-03-21 16:37] VITALS: BP 105/70; PULSE 85; TEMP 98.2
== END 2021-03-21 16:30 | disposition home or self-care (01) ==
LOC: JER 12:23
PROC: 3E0234Z Introduction of Serum, Toxoid and Vaccine into Muscle, Percutaneous Approach (ICD-10-PCS; principal; 2021-03-21)
DX: S09.90XA Unspecified injury of head, initial encounter (principal); S01.91XA Laceration without foreign body of unspecified part of head, initial encounter; W19.XXXA Unspecified fall, initial encounter; Y92.9 Unspecified place or not applicable
CPT/HCPCS: 36415; 70450-TC; 71045-TC-FY; 72125-TC; 80053; 82550; 83735; 84100; 84484; 85025; 90471; 90715; 93005; 93010; 99284-25

== ENCOUNTER 2021-12-14 19:25 | Inpatient (IN) | payer OTHER, MEDICARE ==
[2021-12-14 19:48] VITALS: BMI 25.1
[2021-12-14 21:06] LABS: BASO % 0.8 % (0-2.0); HEMATOCRIT 45.1 % (35.4-49); HEMOGLOBIN 15.3 GM/dL (11.7-16.9); LYMPH % 8.9 % (8-40); MCH 33.3 pg (25.7-33.7); MCHC 33.8 g/dl (32.0-35.9); MEAN CELL VOLUME 98.5 fl (80-96); MEAN PLT VOLUME 8.7 fl (7.5-11.1); MONO % 6.3 % (3.8-10.2); PLATELET COUNT 176 10^3/uL (134-434); RBC 4.58 M/mm3 (4.00-5.60); RDW 14.2 % (11.9-15.9); WHITE BLOOD COUNT 5.6 K/mm3 (4.0-10.0)
[2021-12-14 21:19] LABS: CHLORIDE 107 mmol/L (98-107); SODIUM 142 mmol/L (136-145)
[2021-12-14] MEDS ORDERED: levETIRAcetam 500 MG/5 ML INJECTION VIAL IVPB ONE ×2 (21:20→21:52)
[2021-12-14 21:21] LABS: CALCIUM 9.2 mg/dL (8.5-10.1)
[2021-12-14 21:22] LABS: ALBUMIN 3.9 g/dl (3.4-5.0); ANION GAP 11 MMOL/L (8-16); BLOOD UREA NITROGEN 16.5 mg/dL (7-18); CO2 24 mmol/L (21-32); GLUCOSE,RANDOM 89 mg/dL (74-106)
[2021-12-14 21:25] LABS: CREATININE 1.2 mg/dL (0.55-1.3); SGOT/AST 22 U/L (15-37); SGPT/ALT 25 U/L (13-61)
[2021-12-14 21:27] LABS: BILIRUBIN,TOTAL 0.4 mg/dL (0.2-1); TOT PROT 6.9 g/dl (6.4-8.2)
[2021-12-14 21:28] LABS: ALK PHOS 92 U/L (45-117)
[2021-12-14] MEDS ORDERED: lamoTRIgine 100 MG TABLET ONE (22:03)
[2021-12-14 22:13] LABS: EPI CELLS 21 /uL (0-25.1); HYALINE CASTS 7 /uL (0-3.1); PH,URINE 5.5 (5.0-8.0); URINE APPEARANCE CLEAR; URINE BACTERIA 4 /uL (0-1359); URINE BILIRUBIN NEGATIVE (NEGATIVE); URINE COLOR YELLOW; URINE GLUCOSE (UA) NEGATIVE (NEGATIVE); URINE KETONE NEGATIVE (NEGATIVE); URINE LEUK ESTERASE NEGATIVE (NEGATIVE); URINE NITRITE NEGATIVE (NEGATIVE); URINE PROTEIN 2+ (NEGATIVE); URINE RBC 16 /uL (0-23.9); URINE UROBILINOGEN 0.2 mg/dL (0.2-1.0); URINE WBC 6 /uL (0-25.8)
[2021-12-14] MEDS ORDERED: rOPINIRole HCL 0.5 MG TABLET PO ONE (23:45)
[2021-12-15] MEDS ORDERED: LORazepam 2 MG/ML SDV VIAL IVPUSH ONE (05:53)
[2021-12-15] MEDS ORDERED: levETIRAcetam 500 MG/5 ML INJECTION VIAL IVPB SCH ×4 (06:00→10:00)
[2021-12-15 09:34] LABS: HEMATOCRIT 44.8 % (35.4-49); HEMOGLOBIN 15.4 GM/dL (11.7-16.9); MCH 33.4 pg (25.7-33.7); MCHC 34.3 g/dl (32.0-35.9); MEAN CELL VOLUME 97.3 fl (80-96); MEAN PLT VOLUME 8.6 fl (7.5-11.1); PLATELET COUNT 177 10^3/uL (134-434); RBC 4.61 M/mm3 (4.00-5.60); RDW 13.9 % (11.9-15.9); WHITE BLOOD COUNT 7.6 K/mm3 (4.0-10.0)
[2021-12-15] MEDS: ENOXAPARIN NA (PORCINE) 40 MG/0.4 ML DISP.SYRIN SQ SCH (09:50)
[2021-12-15] MEDS: LISINOPRIL 20 MG TABLET PO SCH (09:54)
[2021-12-15] MEDS ORDERED: lamoTRIgine 100 MG TABLET PO SCH ×2 (10:00→22:00)
[2021-12-15 11:26] LABS: ALBUMIN 3.8 g/dl (3.4-5.0); BLOOD UREA NITROGEN 13.5 mg/dL (7-18)
[2021-12-15 11:29] LABS: CALCIUM 9.3 mg/dL (8.5-10.1); PHOSPHOROUS 2.1 mg/dL (2.5-4.9)
[2021-12-15 11:30] LABS: CREATININE 1.1 mg/dL (0.55-1.3); MAGNESIUM 2.5 mg/dL (1.8-2.4)
[2021-12-15 11:31] LABS: BILIRUBIN,TOTAL 0.6 mg/dL (0.2-1); TOT PROT 6.5 g/dl (6.4-8.2)
[2021-12-15] MEDS ORDERED: LORazepam 2 MG/ML SDV VIAL IVPUSH PRN ×2 (11:45→18:08)
[2021-12-15] MEDS ORDERED: lamoTRIgine 100 MG TABLET PO ONE (20:39)
[2021-12-15] MEDS: SERTRALINE HCL 50 MG TABLET (FP) PO SCH (22:15)
[2021-12-15] MEDS: ATORVASTATIN CA 40 MG TABLET (FP) PO SCH (22:15)
[2021-12-15] MEDS: levETIRAcetam 500 MG/5 ML INJECTION VIAL IVPB SCH (22:45)
[2021-12-16 08:15] LABS: BASO % 0.7 % (0-2.0); EOS % 2.5 % (0-4.5); HEMATOCRIT 45.2 % (35.4-49); HEMOGLOBIN 15.5 GM/dL (11.7-16.9); MCH 33.4 pg (25.7-33.7); MCHC 34.3 g/dl (32.0-35.9); MEAN CELL VOLUME 97.4 fl (80-96); MEAN PLT VOLUME 8.1 fl (7.5-11.1); MONO % 7.9 % (3.8-10.2); NEUT % 74.9 % (42.8-82.8); PLATELET COUNT 159 10^3/uL (134-434); RBC 4.64 M/mm3 (4.00-5.60); WHITE BLOOD COUNT 6.1 K/mm3 (4.0-10.0)
[2021-12-16 08:37] LABS: BLOOD UREA NITROGEN 11.5 mg/dL (7-18); CALCIUM 9.2 mg/dL (8.5-10.1); MAGNESIUM 2.4 mg/dL (1.8-2.4)
[2021-12-16 08:41] LABS: CREATININE 0.9 mg/dL (0.55-1.3)
[2021-12-16] MEDS: levETIRAcetam 500 MG/5 ML INJECTION VIAL IVPB SCH ×2 (09:37→21:39)
[2021-12-16] MEDS: ENOXAPARIN NA (PORCINE) 40 MG/0.4 ML DISP.SYRIN SQ SCH (09:37)
[2021-12-16] MEDS: SERTRALINE HCL 50 MG TABLET (FP) PO SCH ×2 (09:38→21:39)
[2021-12-16] MEDS: lamoTRIgine 100 MG TABLET PO SCH ×2 (09:39→21:38)
[2021-12-16] MEDS: LISINOPRIL 20 MG TABLET PO SCH (09:44)
[2021-12-16] MEDS: ATORVASTATIN CA 40 MG TABLET (FP) PO SCH (21:38)
[2021-12-17] MEDS ORDERED: rOPINIRole HCL 1 MG TABLET (FP) PO ONE (03:22)
[2021-12-17 06:45] LABS: BASO % 0.6 % (0-2.0); EOS % 2.5 % (0-4.5); HEMATOCRIT 42.8 % (35.4-49); HEMOGLOBIN 14.8 GM/dL (11.7-16.9); LYMPH % 11.1 % (8-40); MCH 33.4 pg (25.7-33.7); MCHC 34.5 g/dl (32.0-35.9); MEAN CELL VOLUME 96.9 fl (80-96); MEAN PLT VOLUME 8.9 fl (7.5-11.1); MONO % 7.6 % (3.8-10.2); NEUT % 78.2 % (42.8-82.8); PLATELET COUNT 165 10^3/uL (134-434); RBC 4.42 M/mm3 (4.00-5.60); RDW 13.7 % (11.9-15.9); WHITE BLOOD COUNT 7.7 K/mm3 (4.0-10.0)
[2021-12-17 07:12] LABS: ALBUMIN 3.5 g/dl (3.4-5.0); BLOOD UREA NITROGEN 17.2 mg/dL (7-18); CALCIUM 8.7 mg/dL (8.5-10.1); MAGNESIUM 2.2 mg/dL (1.8-2.4)
[2021-12-17 07:15] LABS: PHOSPHOROUS 2.9 mg/dL (2.5-4.9)
[2021-12-17 07:17] LABS: BILIRUBIN,TOTAL 0.6 mg/dL (0.2-1)
[2021-12-17] MEDS: lamoTRIgine 100 MG TABLET PO SCH ×2 (09:49→21:39)
[2021-12-17] MEDS: SERTRALINE HCL 50 MG TABLET (FP) PO SCH ×2 (09:49→21:33)
[2021-12-17] MEDS: levETIRAcetam 500 MG/5 ML INJECTION VIAL IVPB SCH ×2 (09:50→22:45)
[2021-12-17] MEDS: ENOXAPARIN NA (PORCINE) 40 MG/0.4 ML DISP.SYRIN SQ SCH (09:59)
[2021-12-17] MEDS: LISINOPRIL 20 MG TABLET PO SCH (10:18)
[2021-12-17] MEDS: ATORVASTATIN CA 40 MG TABLET (FP) PO SCH (21:33)
[2021-12-18 08:28] LABS: BASO % 0.9 % (0-2.0); EOS % 2.9 % (0-4.5); HEMATOCRIT 43.2 % (35.4-49); HEMOGLOBIN 14.8 GM/dL (11.7-16.9); LYMPH % 16.6 % (8-40); MCH 33.4 pg (25.7-33.7); MCHC 34.2 g/dl (32.0-35.9); MEAN CELL VOLUME 97.5 fl (80-96); MEAN PLT VOLUME 8.5 fl (7.5-11.1); MONO % 7.7 % (3.8-10.2); NEUT % 71.9 % (42.8-82.8); PLATELET COUNT 149 10^3/uL (134-434); RBC 4.43 M/mm3 (4.00-5.60); WHITE BLOOD COUNT 5.9 K/mm3 (4.0-10.0)
[2021-12-18 08:29] LABS: CALCIUM 8.9 mg/dL (8.5-10.1)
[2021-12-18 08:30] LABS: MAGNESIUM 2.2 mg/dL (1.8-2.4)
[2021-12-18 08:33] LABS: PHOSPHOROUS 2.8 mg/dL (2.5-4.9)
[2021-12-18 08:34] LABS: CREATININE 1.1 mg/dL (0.55-1.3)
[2021-12-18] MEDS: ENOXAPARIN NA (PORCINE) 40 MG/0.4 ML DISP.SYRIN SQ SCH (10:58)
[2021-12-18] MEDS: LISINOPRIL 20 MG TABLET PO SCH (10:59)
[2021-12-18] MEDS: lamoTRIgine 100 MG TABLET PO SCH ×2 (11:03→21:23)
[2021-12-18] MEDS: levETIRAcetam 500 MG TABLET (FP) PO SCH ×2 (11:03→21:23)
[2021-12-18] MEDS: SERTRALINE HCL 50 MG TABLET (FP) PO SCH ×2 (11:04→21:22)
[2021-12-18] MEDS: ATORVASTATIN CA 40 MG TABLET (FP) PO SCH (21:22)
[2021-12-18] MEDS ORDERED: rOPINIRole HCL 1 MG TABLET (FP) PO ONE (21:59)
[2021-12-19 08:38] LABS: BASO % 0.7 % (0-2.0); EOS % 3.2 % (0-4.5); HEMATOCRIT 41.1 % (35.4-49); LYMPH % 18.6 % (8-40); MCH 33.5 pg (25.7-33.7); MCHC 34.1 g/dl (32.0-35.9); MEAN PLT VOLUME 8.9 fl (7.5-11.1); MONO % 7.8 % (3.8-10.2); NEUT % 69.7 % (42.8-82.8); PLATELET COUNT 159 10^3/uL (134-434); RBC 4.19 M/mm3 (4.00-5.60); RDW 13.8 % (11.9-15.9); WHITE BLOOD COUNT 5.5 K/mm3 (4.0-10.0)
[2021-12-19 08:44] LABS: CALCIUM 8.9 mg/dL (8.5-10.1)
[2021-12-19 08:45] LABS: ALBUMIN 3.5 g/dl (3.4-5.0); BLOOD UREA NITROGEN 20.4 mg/dL (7-18)
[2021-12-19 08:48] LABS: CREATININE 1.2 mg/dL (0.55-1.3); PHOSPHOROUS 2.8 mg/dL (2.5-4.9)
[2021-12-19 08:49] LABS: BILIRUBIN,TOTAL 0.7 mg/dL (0.2-1); TOT PROT 5.8 g/dl (6.4-8.2)
[2021-12-19] MEDS: levETIRAcetam 500 MG TABLET (FP) PO SCH (09:54)
[2021-12-19] MEDS: SERTRALINE HCL 50 MG TABLET (FP) PO SCH (09:54)
[2021-12-19] MEDS: ENOXAPARIN NA (PORCINE) 40 MG/0.4 ML DISP.SYRIN SQ SCH (09:55)
[2021-12-19] MEDS: LISINOPRIL 20 MG TABLET PO SCH (09:55)
[2021-12-19] MEDS: lamoTRIgine 100 MG TABLET PO SCH (09:56)
[2021-12-19 17:43] VITALS: BP 126/98; PULSE 62; RESP 18; TEMP 97.4
== END 2021-12-19 18:56 | disposition home or self-care (01) | DRG 101 ==
LOC: JER 19:25 → JERBED 12-15 00:22 → J4W 12-15 06:27 → OBSVTOIN 12-15 06:43 → J4S 12-15 23:23 → J4W 12-17 19:23
PROVIDERS: ADMIT Internal Medicine; ATTEND Internal Medicine
DX: G40.909 Epilepsy, unspecified, not intractable, without status epilepticus (principal); F05 Delirium due to known physiological condition; F03.91 Unspecified dementia, unspecified severity, with behavioral disturbance; R47.01 Aphasia; I10 Essential (primary) hypertension; G25.81 Restless legs syndrome; I25.10 Atherosclerotic heart disease of native coronary artery without angina pectoris; E78.5 Hyperlipidemia, unspecified; K21.9 Gastro-esophageal reflux disease without esophagitis; M19.90 Unspecified osteoarthritis, unspecified site; F17.210 Nicotine dependence, cigarettes, uncomplicated; F10.10 Alcohol abuse, uncomplicated; F41.8 Other specified anxiety disorders; R41.82 Altered mental status, unspecified; Z85.46 Personal history of malignant neoplasm of prostate; Z88.0 Allergy status to penicillin
CPT/HCPCS: 36415; 70450-TC; 80048; 80053; 80175; 80177; 80307; 81003; 82607; 83735; 84100; 84146; 85025; 85027; 86780; 87086; 93005; 93010; 95705; 97116-GP; 97161-GP; 99285-25; C9803-CS; G0378; U0003; U0005

== ENCOUNTER 2022-08-26 05:13 | Emergency (ER) | payer OTHER, MEDICARE ==
[2022-08-26 05:17] VITALS: TEMP 97.9; BMI 25.1
[2022-08-26] MEDS ORDERED: ACETAMINOPHEN 1000 MG/100 ML BAG IVPB ONE (05:50)
[2022-08-26] MEDS ORDERED: ACETAMINOPHEN INJECTION 100 ML IVPB ONE (06:05)
[2022-08-26] MEDS ORDERED: SODIUM CHLORIDE 1,000 ML IV STA (06:10)
[2022-08-26 07:10] LABS: BASO % 0.7 % (0-2.0); EOS % 2.4 % (0-4.5); HEMATOCRIT 40.4 % (35.4-49); HEMOGLOBIN 13.9 GM/dL (11.7-16.9); LYMPH % 12.2 % (8-40); MCH 33.7 pg (25.7-33.7); MCHC 34.4 g/dl (32.0-35.9); MEAN CELL VOLUME 97.8 fl (80-96); MONO % 5.3 % (3.8-10.2); NEUT % 79.4 % (42.8-82.8); PLATELET COUNT 174 10^3/uL (134-434); RBC 4.13 M/mm3 (4.00-5.60); RDW 13.7 % (11.9-15.9); WHITE BLOOD COUNT 6.1 K/mm3 (4.0-10.0)
[2022-08-26 07:16] LABS: PROTHROMBIN TIME (PATIENT) 11.6 SEC (9.7-13.0)
[2022-08-26 07:19] LABS: ACTIVATED PTT 29.2 SECONDS (25.2-36.5)
[2022-08-26 07:32] LABS: ALBUMIN 3.7 g/dl (3.4-5.0)
[2022-08-26 07:35] LABS: CREATININE 1.1 mg/dL (0.55-1.3)
[2022-08-26 07:36] LABS: BILIRUBIN,TOTAL 0.4 mg/dL (0.2-1); TOT PROT 6.6 g/dl (6.4-8.2)
[2022-08-26 08:07] LABS: EPI CELLS 3 /uL (0-25.1); HYALINE CASTS 1 /uL (0-3.1); PH,URINE 6.5 (5.0-8.0); URINE APPEARANCE CLEAR; URINE BACTERIA 2 /uL (0-1359); URINE BILIRUBIN NEGATIVE (NEGATIVE); URINE COLOR RED; URINE GLUCOSE (UA) NEGATIVE (NEGATIVE); URINE KETONE NEGATIVE (NEGATIVE); URINE LEUK ESTERASE TRACE (NEGATIVE); URINE NITRITE NEGATIVE (NEGATIVE); URINE PROTEIN 2+ (NEGATIVE); URINE RBC 4872 /uL (0-23.9); URINE UROBILINOGEN 0.2 mg/dL (0.2-1.0); URINE WBC 14 /uL (0-25.8)
[2022-08-26 08:37] VITALS: BP 107/62; PULSE 58; RESP 16
== END 2022-08-26 08:51 | disposition home or self-care (01) ==
LOC: JER 05:13
PROC: 3E0337Z Introduction of Electrolytic and Water Balance Substance into Peripheral Vein, Percutaneous Approach (ICD-10-PCS; principal; 2022-08-26)
DX: R31.9 Hematuria, unspecified (principal); R33.9 Retention of urine, unspecified
CPT/HCPCS: 36415; 80053; 81003; 85025; 85610; 85730; 87086; 99284-25

== ENCOUNTER 2022-10-01 03:46 | Inpatient (IN) | payer OTHER, MEDICARE ==
[2022-10-01 03:59] VITALS: BMI 25.1
[2022-10-01] MEDS ORDERED: levETIRAcetam 500 MG/5 ML INJECTION VIAL IVPB ONE ×2 (04:44→04:53)
[2022-10-01] MEDS ORDERED: LORazepam 2 MG/ML SDV VIAL IVPUSH ONE ×2 (05:35→07:58)
[2022-10-01 06:13] LABS: BASO % 0.2 % (0-2.0); EOS % 0.6 % (0-4.5); HEMATOCRIT 40.2 % (35.4-49); HEMOGLOBIN 14.2 GM/dL (11.7-16.9); LYMPH % 8.2 % (8-40); MCH 34.5 pg (25.7-33.7); MCHC 35.4 g/dl (32.0-35.9); MEAN CELL VOLUME 97.4 fl (80-96); MEAN PLT VOLUME 9.4 fl (7.5-11.1); MONO % 6.6 % (3.8-10.2); NEUT % 84.4 % (42.8-82.8); PLATELET COUNT 187 10^3/uL (134-434); RBC 4.13 M/mm3 (4.00-5.60); RDW 14.2 % (11.9-15.9); WHITE BLOOD COUNT 10.7 K/mm3 (4.0-10.0)
[2022-10-01 06:28] LABS: POTASSIUM 4.3 mmol/L (3.5-5.1)
[2022-10-01 06:30] LABS: CALCIUM 9.3 mg/dL (8.5-10.1)
[2022-10-01 06:31] LABS: ALBUMIN 3.6 g/dl (3.4-5.0); BLOOD UREA NITROGEN 14.9 mg/dL (7-18); MAGNESIUM 2.1 mg/dL (1.8-2.4)
[2022-10-01 06:36] LABS: BILIRUBIN,TOTAL 0.3 mg/dL (0.2-1); CREATININE 1.1 mg/dL (0.55-1.3); TOT PROT 6.4 g/dl (6.4-8.2)
[2022-10-01] MEDS ORDERED: LORazepam 2 MG/ML SDV VIAL IVPUSH PRN (11:03)
[2022-10-01] MEDS ORDERED: Lacosamide 200 MG/20 ML VIAL IVPB SCH (11:15)
[2022-10-01] MEDS ORDERED: VALPROATE SODIUM 500 MG/5 ML VIAL IVPB SCH (11:45)
[2022-10-01] MEDS ORDERED: LACTATED RINGERS SOLUTION 1,000 ML/1,000 ML INFUS.BAG IV SCH (13:45)
[2022-10-01] MEDS: lamoTRIgine 100 MG TABLET PO SCH (21:56)
[2022-10-01] MEDS: levETIRAcetam 500 MG/5 ML INJECTION VIAL IVPB SCH (21:56)
[2022-10-01] MEDS ORDERED: levETIRAcetam 500 MG/5 ML INJECTION VIAL IVPB SCH (22:00)
[2022-10-01] MEDS: VALPROATE SODIUM INJECTION 500 MG in SODIUM CHLORIDE 100 ML IVPB SCH (23:24)
[2022-10-02 08:17] LABS: EOS % 3.5 % (0-4.5); HEMATOCRIT 39.2 % (35.4-49); HEMOGLOBIN 13.8 GM/dL (11.7-16.9); LYMPH % 16.8 % (8-40); MCH 34.3 pg (25.7-33.7); MCHC 35.2 g/dl (32.0-35.9); MEAN CELL VOLUME 97.4 fl (80-96); MONO % 6.5 % (3.8-10.2); NEUT % 72.2 % (42.8-82.8); PLATELET COUNT 172 10^3/uL (134-434); RBC 4.03 M/mm3 (4.00-5.60); RDW 13.7 % (11.9-15.9); WHITE BLOOD COUNT 5.8 K/mm3 (4.0-10.0)
[2022-10-02 08:37] LABS: POTASSIUM 4.1 mmol/L (3.5-5.1)
[2022-10-02 08:39] LABS: CALCIUM 8.6 mg/dL (8.5-10.1)
[2022-10-02 08:40] LABS: MAGNESIUM 2.3 mg/dL (1.8-2.4)
[2022-10-02 08:41] LABS: ALBUMIN 3.3 g/dl (3.4-5.0)
[2022-10-02 08:43] LABS: CREATININE 0.9 mg/dL (0.55-1.3)
[2022-10-02 08:45] LABS: TOT PROT 5.8 g/dl (6.4-8.2)
[2022-10-02 08:46] LABS: BILIRUBIN,TOTAL 0.5 mg/dL (0.2-1)
[2022-10-02] MEDS: levETIRAcetam 500 MG/5 ML INJECTION VIAL IVPB SCH (09:53)
[2022-10-02] MEDS: ENOXAPARIN NA (PORCINE) 40 MG/0.4 ML DISP.SYRIN SQ SCH (09:56)
[2022-10-02] MEDS: LAMOTRIGINE 200 MG, LAMOTRIGINE 50 MG PO SCH (09:56)
[2022-10-02 10:50] LABS: URINE APPEARANCE CLEAR; URINE BILIRUBIN NEGATIVE (NEGATIVE); URINE COLOR YELLOW; URINE GLUCOSE (UA) NEGATIVE (NEGATIVE); URINE KETONE NEGATIVE (NEGATIVE); URINE LEUK ESTERASE NEGATIVE (NEGATIVE); URINE NITRITE NEGATIVE (NEGATIVE); URINE PROTEIN NEGATIVE (NEGATIVE); URINE UROBILINOGEN 0.2 mg/dL (0.2-1.0)
[2022-10-02] MEDS: VALPROATE SODIUM INJECTION 500 MG in SODIUM CHLORIDE 100 ML IVPB SCH ×2 (13:27→21:37)
[2022-10-02] MEDS: lamoTRIgine 100 MG TABLET PO SCH (21:36)
[2022-10-02] MEDS: levETIRAcetam 500 MG TABLET (FP) PO SCH (21:36)
[2022-10-02] MEDS: rOPINIRole HCL 0.5 MG TABLET PO SCH (21:37)
[2022-10-03 08:25] LABS: POTASSIUM 4.3 mmol/L (3.5-5.1)
[2022-10-03 08:27] LABS: CALCIUM 8.5 mg/dL (8.5-10.1)
[2022-10-03 08:28] LABS: ALBUMIN 3.1 g/dl (3.4-5.0); BLOOD UREA NITROGEN 10.7 mg/dL (7-18)
[2022-10-03 08:31] LABS: CREATININE 0.9 mg/dL (0.55-1.3)
[2022-10-03 08:33] LABS: BILIRUBIN,TOTAL 0.5 mg/dL (0.2-1); TOT PROT 5.6 g/dl (6.4-8.2)
[2022-10-03] MEDS: FERROUS SO4 325 MG TABLET (FP) PO SCH (09:14)
[2022-10-03] MEDS: LAMOTRIGINE 200 MG, LAMOTRIGINE 50 MG PO SCH (09:14)
[2022-10-03] MEDS: levETIRAcetam 500 MG TABLET (FP) PO SCH ×2 (09:14→22:23)
[2022-10-03] MEDS: VITAMIN B COMP W-C 1 EA TABLET (NEPHRO-VITE) PO SCH (09:15)
[2022-10-03] MEDS: ENOXAPARIN NA (PORCINE) 40 MG/0.4 ML DISP.SYRIN SQ SCH (09:15)
[2022-10-03] MEDS: FINASTERIDE 5 MG TABLET (FP) PO SCH (09:15)
[2022-10-03] MEDS: CHOLECALCIFEROL (VIT D3) 1,000 UNIT (25 MCG) TABLET PO SCH (09:16)
[2022-10-03] MEDS: SERTRALINE HCL 50 MG TABLET (FP) PO SCH ×2 (09:16→22:23)
[2022-10-03] MEDS: rOPINIRole HCL 0.5 MG TABLET PO SCH ×2 (09:16→22:23)
[2022-10-03] MEDS ORDERED: RAMIPRIL 5 MG CAPSULE PO SCH (10:00)
[2022-10-03] MEDS ORDERED: PREDNISOLONE OD SCH (10:00)
[2022-10-03] MEDS ORDERED: BROM OD SCH (10:00)
[2022-10-03] MEDS ORDERED: MOXI OD SCH (10:00)
[2022-10-03] MEDS ORDERED: DIVALPROEX NA *ER* EXTEND REL 500 MG TABLET.SA (FP) PO SCH (10:00)
[2022-10-03] MEDS: MOXI OD SCH ×2 (10:58→22:24)
[2022-10-03] MEDS: [UNRECOGNIZED DRUG - OTHER] OD SCH ×2 (10:58→22:24)
[2022-10-03] MEDS: BROM OD SCH ×2 (10:58→22:24)
[2022-10-03] MEDS: PREDNISOLONE OD SCH ×2 (10:58→22:24)
[2022-10-03] MEDS ORDERED: ASPIRIN 81 MG CHEWABLE TABLETS PO SCH (22:00)
[2022-10-03] MEDS ORDERED: ATORVASTATIN CA 40 MG TABLET (FP) PO SCH (22:00)
[2022-10-03] MEDS: lamoTRIgine 100 MG TABLET PO SCH (22:23)
[2022-10-03] MEDS: DIVALPROEX SODIUM 500 MG TABLET E.C. PO SCH (22:23)
[2022-10-04] MEDS: VITAMIN B COMP W-C 1 EA TABLET (NEPHRO-VITE) PO SCH (10:16)
[2022-10-04] MEDS: levETIRAcetam 500 MG TABLET (FP) PO SCH (10:17)
[2022-10-04] MEDS: DIVALPROEX SODIUM 500 MG TABLET E.C. PO SCH (10:17)
[2022-10-04] MEDS: ENOXAPARIN NA (PORCINE) 40 MG/0.4 ML DISP.SYRIN SQ SCH (10:17)
[2022-10-04] MEDS: CHOLECALCIFEROL (VIT D3) 1,000 UNIT (25 MCG) TABLET PO SCH (10:17)
[2022-10-04] MEDS: SERTRALINE HCL 50 MG TABLET (FP) PO SCH (10:18)
[2022-10-04] MEDS: FERROUS SO4 325 MG TABLET (FP) PO SCH (10:18)
[2022-10-04] MEDS: LAMOTRIGINE 200 MG, LAMOTRIGINE 50 MG PO SCH (10:18)
[2022-10-04] MEDS: FINASTERIDE 5 MG TABLET (FP) PO SCH (10:18)
[2022-10-04] MEDS: MOXI OD SCH (10:23)
[2022-10-04] MEDS: rOPINIRole HCL 0.5 MG TABLET PO SCH (10:23)
[2022-10-04] MEDS: BROM OD SCH (10:23)
[2022-10-04] MEDS: PREDNISOLONE OD SCH (10:23)
[2022-10-04] MEDS: [UNRECOGNIZED DRUG - OTHER] OD SCH (10:23)
[2022-10-04 14:10] VITALS: BP 116/58; PULSE 72; RESP 18; TEMP 97.5
== END 2022-10-04 15:42 | disposition home or self-care (01) | DRG 101 ==
LOC: JER 03:46 → JERBED 06:53 → J4S 11:17
PROVIDERS: ADMIT Internal Medicine; ATTEND Internal Medicine
DX: G40.409 Other generalized epilepsy and epileptic syndromes, not intractable, without status epilepticus (principal); C79.51 Secondary malignant neoplasm of bone; C61 Malignant neoplasm of prostate; I10 Essential (primary) hypertension; F32.A Depression, unspecified; G25.81 Restless legs syndrome; K21.9 Gastro-esophageal reflux disease without esophagitis
CPT/HCPCS: 0241U-QW; 36415; 70450-TC; 70551-TC; 71045-TC-FY; 72125-TC; 80053; 80061; 80175; 80177; 81003; 82550; 82553; 82962; 83735; 84100; 85025; 87086; 93005; 93010; 94010; 94761; 97116-GP; 99285-25